=== PATIENT | female | born 1945 | race Caucasian/White ===

== ENCOUNTER 2016-10-03 08:00 | Outpatient (CLI) | payer MEDICARE, OTHER ==
[~2016-10-03 08:00] MED LIST: ALBU8.5H3 INH; ASPI-535 PO; ATEN-51 PO; ATOR20TA38 PO; BUPR1PAT9 TD; CLON2TAB3 PO; ESCI20TA PO; ESOM40CA PO; GABA-526 PO; HYDR-3011 PO; LIDO5OI35 TP; LOSA100T7 PO; OXYC30TA64 PO; TOLT4CAP13 PO
[2016-10-03 12:16] LABS: ADD SCAN DIFF NO
[2016-10-03 12:42] LABS: BASOPHIL # 0.1 10^3/ul (0.0-0.1); BASOPHILS % 1.1 % (0.0-2.0); EOSINOPHILS # 0.3 10^3/ul (0.0-0.5); EOSINOPHILS % 2.9 % (0.0-7.0); HEMATOCRIT 38.6 % (37.0-47.0); HEMOGLOBIN 11.3 g/dl (12.0-16.0); LYMPHOCYTES # 2.5 10^3/ul (0.8-2.9); LYMPHOCYTES % 24.8 % (15.0-51.0); MEAN CORPUSCULAR HEMOGLOBIN 27.2 pg (29.0-33.0); MEAN CORPUSCULAR HGB CONC 29.3 g/dl (32.0-37.0); MEAN CORPUSCULAR VOLUME 92.8 fl (82.0-101.0); MEAN PLATELET VOLUME 10.1 fl (7.4-10.4); MONOCYTE # 0.9 10^3/ul (0.3-0.9); MONOCYTES % 8.6 % (0.0-11.0); NEUTROPHIL # 6.2 10^3/ul (1.6-7.5); NEUTROPHILS % 62.4 % (39.0-77.0); PLATELET COUNT 329 10^3/UL (140-415); RED BLOOD COUNT 4.16 10^6/ul (4.20-5.40); RED CELL DISTRIBUTION WIDTH 14.5 % (11.5-14.5); WHITE BLOOD COUNT 9.9 10^3/ul (4.8-10.8)
[2016-10-03 13:12] LABS: INR 0.98
[2016-10-03 13:13] LABS: PARTIAL THROMBOPLASTIN TIME 26.9 Sec (25.0-35.0)
[2016-10-03 13:23] LABS: ADD UMIC NO; UR ASCORBIC ACID NEGATIVE (NEGATIVE); UR BILIRUBIN (Dip) NEGATIVE (NEGATIVE); UR BLOOD (Dip) NEGATIVE (NEGATIVE); UR CLARITY SLIGHTLY CLOUDY (CLEAR); UR COLOR YELLOW (YELLOW); UR GLUCOSE (Dip) NEGATIVE (NEGATIVE); UR KETONES (Dip) TRACE mg/dL (NEGATIVE); UR LEUKOCYTE ESTERASE (Dip) NEGATIVE Leu/ul (NEGATIVE); UR NITRITE (Dip) NEGATIVE (NEGATIVE); UR RBC 11 /HPF (0-5); UR SPECIFIC GRAVITY (Dip) 1.021 (1.003-1.030); UR SQUAMOUS EPITHELIAL CELL FEW /HPF (FEW); UR TOTAL PROTEIN (Dip) NEGATIVE (NEGATIVE); UR UROBILINOGEN (Dip) NEGATIVE (NEGATIVE)
[2016-10-03 13:32] LABS: ALBUMIN 4.1 g/dl (3.3-4.9); ALBUMIN/GLOBULIN RATIO 1.51; BILIRUBIN,INDIRECT 0.1 mg/dl (0-1.1); BILIRUBIN,TOTAL 0.1 mg/dl (0.2-1.3); TOTAL PROTEIN 6.8 g/dl (6.1-8.1)
[2016-10-03 13:46] LABS: CALCIUM 8.5 mg/dl (8.4-10.2); CREATININE 0.9 mg/dl (0.44-1.00)
--- NOTE | 2016-10-03 14:05 | RADRPT ---
PROCEDURE: XR Chest. CLINICAL INDICATION: Preop. Hypertension. TECHNIQUE: PA and lateral views of the chest were obtained COMPARISON: Chest 04/11/2015 FINDINGS: Again noted is a globular soft tissue density along the medial posterior left lung base consistent w ith eventration of the left hemidiaphragm. In addition there is eventration of the right hemidiaphr agm. The heart is within upper limits of normal in size. There is increased density along the left heart border consistent with epicardial fat pad. Again noted is increased density involving the pedrito gula of the left upper lobe silhouetting the left heart border consistent with scarring. An acute i nfiltrate in this region cannot be totally excluded though the felt to be less likely. Remainder george ngs are clear. No evidence of pleural effusions and pneumothorax. No evidence of pulmonary vascula r congestion. Is atherosclerosis of thoracic aorta. IMPRESSION: 1. No evidence congestive heart failure. 2. 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 3. Increased density involving the lingula left upper lobe silhouetting the left heart border likel y all due to scarring. And infiltrate this region cannot be totally excluded though felt to be less likely. RPTAT:AAJJ Physician Vandana Date Time Electronically viewed and signed by Physician Vandana on 10/03/2016 14:05 /
--- NOTE | 2016-10-04 11:11 | RADRPT ---
Vent Rate: 57 bpm RR Interval: 0 msec [place] Interval: 132 msec QRS Duration: 90 msec QT Interval: 446 msec QTC Interval: 434 msec P-R-T [place]: 31 - 16 - 52 degrees Sinus bradycardia Otherwise normal ECG Electronically Signed By: Miles Cheney [id number]
== END 2016-10-03 23:59 | disposition home or self-care (01) ==
LOC: LAB 08:00 → EDSTATUS 10-09 07:51
PROVIDERS: ATTEND Internal Medicine
DX: Z01.818 Encounter for other preprocedural examination (principal); I10 Essential (primary) hypertension; I25.10 Atherosclerotic heart disease of native coronary artery without angina pectoris
CPT/HCPCS: 71020; 80053; 81001; 81003; 85025; 85610; 85730; 93005

== ENCOUNTER 2016-10-14 17:48 | Inpatient (IN) | payer MEDICARE, OTHER ==
[~2016-10-14] VITALS: Ht 152.4 cm; Wt 74.0 kg
[2016-10-14] MEDS ORDERED: IPRATROPIUM (NEB) 0.5 MG/2.5 ML AMP INH STA (17:53)
[2016-10-14] MEDS ORDERED: ALBUTEROL 0.5% (NEB) 2.5 MG/0.5 ML AMP INH STA (17:53)
--- NOTE | 2016-10-14 18:33 | ERA ---
ER Documentation Chief Complaint Date/Time DATE: 10/14/16 TIME: 18:26 Chief Complaint SOB 82% ON ROOM AIR, NITRO SPRAY X 3 BY PARAMEDICS HPI This is a very pleasant 71-year-old female with a known history of CHF COPD and hypertension that presents to the emergency department complaining of severe difficulty in breathing that began roughly an hour prior to arrival. Patient phone 911 and when EMS arrived they indicated the patient was hypoxic satting at 82% on room air. She was using accessory muscles of respiration. They administered 3 sprays of nitroglycerin and placed the patient on high flow supplemental oxygen per nonrebreather. The patient's respiratory distress had improved but did not completely resolve. She denies any swelling of her lower extremities. She stated that roughly 3 weeks ago she was awaiting for outpatient ORIF of a left forearm fracture however she ended up going to [facility] [place] where they performed a closed reduction several days ago. She has had no fevers or shaking or chills. She has been taking tramadol for the pain of her left upper extremity. She denies any numbness or tingling of her upper extremities. She denies a headache. She denies any recent utilization of antibiotic use. She states she has been compliant with her medications. She denies a productive or nonproductive cough ROS All systems reviewed and are negative except as per history of present illness. Medications Home Meds Reported Medications Albuterol Sulfate* (Proair HFA*) 8.5 Gm Hfa.aer.ad, 2 PUFF INH Q6H Y for WHEEZING AND SOB, INH 01/14/15 Tolterodine Tartrate* (Tolterodine Tartrate* ER) 4 Mg Cap.er.24h, 4 MG PO DAILY , CAP 01/14/15 Losartan Potassium* (Losartan Potassium*) 100 Mg Tablet, 100 MG PO DAILY, TAB 01/14/15 Hydroxyzine Hcl* (Hydroxyzine Hcl*) 25 Mg Tablet, 25 MG PO DAILY for ITCHING, TAB 01/14/15 Lidocaine 5%* (Lidocaine 5%*) 5% -35 Gm Oint, 1 APPLIC TP, TUB 01/14/15 Oxycodone Hcl* (Oxycontin*) 30 Mg Tab.sr.12h, 30 MG PO Q12, TAB 01/14/15 Buprenorphine (BUTRANS) 1 Each Patch.tdwk, 1 EACH TD 01/14/15 Escitalopram Oxalate* (Lexapro*) 20 Mg Tablet, 20 MG PO DAILY, TAB 01/14/15 Gabapentin* (Gabapentin*) 600 Mg Tablet, 600 MG PO BID, TAB 01/14/15 Atorvastatin Calcium* (Atorvastatin Calcium*) 20 Mg Tablet, 20 MG PO HS, TAB 01/14/15 Atenolol* (Atenolol*) 25 Mg Tablet, 25 MG PO DAILY, TAB 01/15/14 Esomeprazole Mag Trihydrate (Nexium) 40 Mg Capsule.dr, 40 MG PO DAILY 08/24/13 Aspirin Ec (Aspir 81) 81 Mg Tablet.dr, 81 MG PO DAILY 08/24/13 Clonazepam* (Clonazepam*) 2 Mg Tablet, 2 MG PO AM, TAB 08/24/13 Allergies Allergies: Coded Allergies: Penicillins (Verified Allergy, Unknown, 04/11/15) codeine (Verified Allergy, Unknown, 04/11/15) PMhx/Soc History of Surgery: Yes Anesthesia Reaction: No Hx Neurological Disorder: Yes (hx sdh from mult falls) Hx Respiratory Disorders: Yes (copd and still smokes) Hx Cardiac Disorders: Yes (htn, high chol, mi stents) Hx Psychiatric Problems: Yes (bipolar, anxiety depression) Hx Miscellaneous Medical Probl: Yes (mult falls, fibromyaliga, catarct repairs , ) Hx Alcohol Use: No Hx Substance Use: No Hx Tobacco Use: Yes Physical Exam Vitals Vital Signs Date Time Temp Pulse Resp B/P Pulse Ox O2 Delivery O2 Flow Rate FiO2 10/14/16 19:47 Simple Mask 10/14/16 19:47 96 30 121/75 100 BIPAP 10/14/16 19:40 99 98 40 10/14/16 18:14 89 96 30 10/14/16 17:56 99.6 109 22 146/75 82 Physical Exam Constitutional:Well-developed. Well-nourished. Patient in severe respiratory distress. HEENT:Normocephalic. Atraumatic.Pupils were equal round reactive to light. Moist mucous membranes.No tonsillar exudates. Neck: No nuchal rigidity. No lymphadenopathy. No posterior cervical spine tenderness or step-offs. Respiratory: Patient using accessory muscles of respiration. Bilateral rhonchi. Unable to speak more than 2 words at a time before becoming short of breath Cardiovascular: Regular rate regular rhythm.No murmurs. No rubs were appreciated.S1, S2 normal. Distal pulses are palpable 2+ bilaterally. GI: Abdomen was soft. Nontender. Non Distended. No pulsatile abdominal masses or bruits. No rebound. No guarding. Bowel sounds were present and normal. Muscle skeletal: Full range of motion the bilateral lower extremities with no asymmetrical calf tenderness or swelling. Short arm forearm cast on the left with good perfusion of all digits of the left upper extremity. Compartments were soft of the bilateral upper extremities Skin: No petechia, no purpura. No lesions on the palms or the soles of the feet. No maculopapular rash. NEURO: Patient was alert, awake, orientated x3.No facial droop. Gait observed and normal with no ataxia.Speech had regular rate and rhythm. No focal neurological deficits. Result Diagram: 10/14/16185410/14/161854 Results 24 hrs Laboratory Tests Test 10/14/16 18:39 10/14/16 18:55 Blood Gas Specimen Source Blood arterial Arterial Blood Date Drawn 10/14/2016 6:40:23 PM Arterial Blood pH (Temp corrected) 7.425 Arterial Blood pCO2 (Temp correct) 37.9mmhg Arterial Blood pO2 (Temp corrected) 60.6mmHG Arterial Blood HCO3 24.3mmol/L Arterial Blood Base Excess 0.1mmol/L Arterial Blood Oxygen Saturation 91.8mmHG Damián Test ACCEPTAB Arterial Blood Gas Puncture Site Right Radial Arterial Blood Carboxyhemoglobin 0.9% Arterial Blood Methemoglobin 0.3% Blood Gas A-a O2 Differential 108.8mmHg Oxyhemoglobin Percent 90.7% Total Hemoglobin 12.8g/dl Blood Gas Temperature 37.0C Blood Gas Respiration Rate 14.0 Blood Gas Actual Respiration Rate 26 Blood Gas Modality MASK - BIPAP FiO2 30.0% Blood Gas Pressure Support 4 Blood Gas IPAP/EPAP Ratio 03/08 Blood Gas Notified Whom RT Blood Gas Notified Time 10/14/2016 6:44:14 PM White Blood Count 42.310^3/ul Red Blood Count 4.1310^6/ul Hemoglobin 11.5g/dl Hematocrit 36.3% Mean Corpuscular Volume 87.9fl Mean Corpuscular Hemoglobin 27.8pg Mean Corpuscular Hemoglobin Concent 31.7g/dl Red Cell Distribution Width 15.4% Platelet Count 71696^3/UL Mean Platelet Volume 9.8fl Neutrophils % 92.0% Lymphocytes % 7.0% Monocytes % 1.0% Neutrophils # 38.910^3/ul Lymphocytes # 3.010^3/ul Monocytes # 0.410^3/ul Prothrombin Time 14.4Sec Prothrombin Time Ratio 1.1 INR International Normalized Ratio 1.12 Activated Partial Thromboplast Time 34.9Sec Sodium Level 143mmol/L Potassium Level 3.5mmol/L Chloride Level 99mmol/L Carbon Dioxide Level 27mmol/L Anion Gap 21 Blood Urea Nitrogen 11mg/dl Creatinine 0.61mg/dl Glucose Level 115mg/dl Calcium Level 8.9mg/dl Total Bilirubin 0.5mg/dl Direct Bilirubin 0.00mg/dl Indirect Bilirubin 0.5mg/dl Aspartate Amino Transf (AST/SGOT) 16IU/L Alanine Aminotransferase (ALT/SGPT) 24IU/L Alkaline Phosphatase 103IU/L Creatine Kinase 37IU/L Creatine Kinase Index 3.6 Creatinine Kinase MB (Mass) 1.34ng/ml Troponin I 0.068ng/ml B-Type Natriuretic Peptide 2190PG/ML Total Protein 7.0g/dl Albumin 4.3g/dl Globulin 2.70g/dl Albumin/Globulin Ratio 1.59 Current Medications Medications (Trade) Dose Ordered Sig/Cuco Route PRN Reason Start Time Stop Time Status Last Admin Dose Admin Albuterol (Proventil 0.5% (Neb)) 10 mg ONCE STAT INH 10/14/16 17:53 10/14/16 17:59 DC 10/14/16 19:42 Ipratropium [place] (Atrovent 0.02% (Neb)) 1 mg ONCE STAT INH 10/14/16 17:53 10/14/16 17:59 DC 10/14/16 19:42 Morphine Sulfate (morphine) 4 mg ONCE STAT IV 10/14/16 18:55 10/14/16 18:56 DC 10/14/16 19:10 Ondansetron HCl (Zofran Inj) 4 mg ONCE STAT IV 10/14/16 18:55 10/14/16 18:56 DC 10/14/16 19:10 Ondansetron HCl (Zofran Inj) 4 mg ER BRIDGE PRN IV NAUSEA AND/OR VOMITING 10/14/16 20:30 10/14/16 21:27 DC Acetaminophen (Tylenol Tab) 650 mg ER BRIDGE PRN PO MILD PAIN/FEVER 10/14/16 20:30 10/14/16 21:27 DC Methylprednisolone Sodium Succinate 40 mg 40 mg DAILY ONCE IV 10/15/16 09:00 10/15/16 09:01 Levofloxacin/ Dextrose (Levaquin 500mg/ D5W 100 ml (Pmx)) 100 ml @ 100 mls/hr DAILY IVPB 10/14/16 21:00 10/14/16 21:08 DC Levalbuterol (Xopenex Neb) 0.63 mg Q6H RESP THERAPY PRN HHN SHORTNESS OF BREATH 10/14/16 20:00 Albuterol/ Ipratropium 3 ml 3 ml Q6H RESP THERAPY PRN HHN SHORTNESS OF BREATH 10/14/16 20:00 Levofloxacin/ Dextrose (Levaquin 750 Mg/ D5W 150 ml (Pmx)) 150 ml @ 100 mls/hr DAILY IVPB 10/15/16 09:00 Procedures/MDM The patient presented to the emergency department with dyspnea. My differential diagnosis included but was not limited to upper airway obstruction, CHF, pulmonary embolism, cardiac ischemia, pneumonia, pneumothorax, anemia, drug overdose, pulmonary edema, COPD or asthma. The patient was immediately placed in a multimedia services manager continuous pulse oximetry and IV access was established by nursing staff. Due to the patient's severe respiratory distress she was placed on noninvasive mechanical ventilation for a BiPAP. She received continuous nebulizer treatments of albuterol and Atrovent. The patient was also given 125 mg of Solu-Medrol. 1 view chest radiograph for and reviewed by myself and the following: Mild left basilar opacity is stable. Likely hiatus hernia. The patient had severe leukocytosis. I spoke with the admitting physician Dr. Hannon and he indicated that the patient had been placed on high-dose steroids for surgery preparation. Therefore did not feel the patient was septic and no antibiotics were started at this time. The patient has significant improvement of her respiratory distress but given the severity of her symptoms upon arrival of hypoxia the patient will be admitted for continuous nebulizer treatments serious condition to her primary care physician Dr. Hannon. 12 Lead EKG tracing ordered and reviewed by myself showed: Normal sinus rhythm of 100 bpm and no arrhythmia. NV interval normal. QRS duration normal. No ST segment elevation No ST segment depression. No changes consistent with acute ischemia. Critical Care: Time: 55 minutes Treatments/Evaluations: Close monitoring and treatment of unstable vital signs, cardiorespiratory, and neurologic status, while maintaining tight balance of fluid, respiratory, and cardiac interventions. Time does not include performing any of the above billable procedures. Departure Diagnosis: Primary Impression: COPD (chronic obstructive pulmonary disease) Qualified Code: J44.9 - Chronic obstructive pulmonary disease, unspecified COPD type Condition: Serious PAMELA WINTERS Oct 14, 2016 18:33
--- NOTE | 2016-10-14 18:43 | RADRPT ---
PROCEDURE: XR Chest. CLINICAL INDICATION: Preoperative exam TECHNIQUE: Single AP view of the chest were obtained COMPARISON: 10/03/2016 FINDINGS: The heart and mediastinum are within normal limits. The pulmonary vasculature are unremarkable. The aorta demonstrates atherosclerotic calcifications. Left lower lung opacity is again seen which erasmo ear stable from prior exam. Hiatus hernia is suspected within the lower thorax. There is a mild op acity in the medial right lung base that appears stable from prior study. There is no visible effus ion or pneumothorax. Degenerative changes are seen within the thoracic spine. There is no acute os seous abnormality. IMPRESSION: Mild left basilar opacity is stable. Likely hiatus hernia. RPTAT: AA .Rosa Gimenez MD, Date Time Electronically viewed and signed by .Rosa Gimenez MD, on 10/14/2016 18:43 .Karel/
[2016-10-14 18:44] LABS: AADO2 Arterial 108.8 mmHg (7.0-24.0); Allen Test ACCEPTAB; Arterial Base Excess 0.1 mmol/L (-3.0-3); Arterial COHb 0.9 % (0.0-3.0); Arterial Fraction of Oxyhgb 90.7 % (93.0-99.0); Arterial HCO3 24.3 mmol/L (22.0-26.0); Arterial MetHb 0.3 % (0.0-1.5); Arterial Total Hemglobin 12.8 g/dl (12.0-18.0); Blood Gas PS 4; MODE MASK - BIPAP
[2016-10-14] MEDS ORDERED: ONDANSETRON 4 MG INJ IV STA (18:55)
[2016-10-14] MEDS ORDERED: morphine 4 MG/ML VIAL IV STA (18:55)
[2016-10-14 19:12] LABS: ADD SCAN DIFF NO
[2016-10-14 19:15] LABS: ABNORMAL IP MESSAGE 1; HEMATOCRIT 36.3 % (37.0-47.0); HEMOGLOBIN 11.5 g/dl (12.0-16.0); MEAN CORPUSCULAR HEMOGLOBIN 27.8 pg (29.0-33.0); MEAN CORPUSCULAR HGB CONC 31.7 g/dl (32.0-37.0); MEAN CORPUSCULAR VOLUME 87.9 fl (82.0-101.0); MEAN PLATELET VOLUME 9.8 fl (7.4-10.4); PLATELET COUNT 407 10^3/UL (140-415); RED BLOOD COUNT 4.13 10^6/ul (4.20-5.40); RED CELL DISTRIBUTION WIDTH 15.4 % (11.5-14.5)
[2016-10-14 19:34] LABS: INR 1.12; PROTIME 14.4 Sec (12.2-14.2); PT RATIO 1.1
[2016-10-14 19:36] LABS: ALBUMIN 4.3 g/dl (3.3-4.9); ALBUMIN/GLOBULIN RATIO 1.59; BILIRUBIN,INDIRECT 0.5 mg/dl (0-1.1); BILIRUBIN,TOTAL 0.5 mg/dl (0.2-1.3); CALCIUM 8.9 mg/dl (8.4-10.2); CREATININE 0.61 mg/dl (0.44-1.00); POTASSIUM 3.5 mmol/L (3.5-5.1)
[2016-10-14 19:44] LABS: MONOCYTE # 0.4 10^3/ul (0.3-0.9); NEUTROPHIL # 38.9 10^3/ul (1.6-7.5)
[2016-10-14 19:48] LABS: CK-MB 1.34 ng/ml (0.0-2.4); TROPONIN-I 0.068 ng/ml (0.00-0.12)
[2016-10-14] MEDS ORDERED: ALBUTEROL/IPRATROPIUM (NEB) 3 ML AMP HHN PRN (20:00)
[2016-10-14 20:16] LABS: PARTIAL THROMBOPLASTIN TIME 34.9 Sec (25.0-35.0)
[2016-10-14] MEDS ORDERED: ONDANSETRON 4 MG INJ IV PRN (20:30)
[2016-10-14] MEDS ORDERED: ACETAMINOPHEN 325 MG TAB PO PRN (20:30)
[2016-10-14] MEDS ORDERED: LEVOFLOXACIN 500MG/D5W (PMX) 100 ML IVPB SCH (21:00)
[2016-10-14] MEDS: LEVOFLOXACIN 750MG/D5W (PMX) 150 ML IVPB SCH (22:29)
[2016-10-14 23:30] VITALS: Ht 152.4 cm; Wt 74.0 kg
[2016-10-14 23:52] VITALS: PULSE 101
[2016-10-15] VITALS (17 sets, daily range): BP systolic 115–138; BP diastolic 56–65; PULSE 53–175; RESP 17–18
[2016-10-15] MEDS: LEVALBUTEROL (NEB) 0.63 MG/3 ML AMP HHN PRN ×2 (00:56→08:13)
[2016-10-15] MEDS ORDERED: HYDROCODONE/APAP (5/325) TAB PO PRN (01:00)
[2016-10-15] MEDS ORDERED: LORAZEPAM 1 MG TAB PO PRN ×2 (01:00→19:00)
[2016-10-15] MEDS: morphine 4 MG/ML VIAL IV PRN ×6 (01:22→21:45)
[2016-10-15] MEDS ORDERED: ACETAMINOPHEN 325 MG TAB PO PRN (01:30)
--- NOTE | 2016-10-15 02:52 | HP ---
Date/Time of Note Date/Time of Note DATE: 10/15/16 TIME: 01:22 Assessment/Plan Lines/Catheters IV Catheter Type (from [facility]): Saline Lock Assessment/Plan Assessment/Plan -Allergies - Penicillins, codeine -COPD exacerbation - Non Invasive BIPAP - IV Solumedrol - Breathing treatments - if symptoms get worse, will get Pulmonary consult - Severe Leukocytosis sec to being on steroids - will start on Levaquin 750 mg IV daily - monitor CBC - Current Smoker - smoking cessation - hx sdh from mult falls - HTN - Dyslipidemia - HI- SP stents - Bipolar - Anxiety - Depression- - Fibromyaliga, Resume home meds. SCDs for DVT prophylaxis.Protonix for GI prophylaxis. Dw Dr Hannon/staff HPI/ROS Admit Date/Time Admit Date/Time Oct 14, 2016 at 20:25 Hx of Present Illness LATE ENTRY- 10/14/2016at 2119 This is a 71-year-old female with past medical history of CHF COPD and hypertension is admitted with c/o of severe difficulty in breathing x1 day. Patient was awaiting for outpatient ORIF by Dr Wilder, of a left forearm fracture. During assessment, patient remains on BIPAP, But patients is able to talk in full sentences and stated she feels better with breathing.She denies any swelling of her lower extremities, any productive or nonproductive cough, fevers or shaking or chills, any numbness or tingling of her upper extremities, headache. She denies any recent utilization of antibiotic use. She denies any non compliance with her medications. Patient is admitted under Dr Hannon. ROS All systems reviewed and are negative except as per history of present illness. Allergies Allergies: Coded Allergies: Penicillins (Verified Allergy, Unknown, 04/11/15) codeine (Verified Allergy, Unknown, 04/11/15) ROS Respiratory: no complaints, shortness of breath Cardiovascular: no complaints Gastrointestinal: no complaints Genitourinary: no complaints Musculoskeletal: no complaints PMH/Family/Social Past Medical History Allergies Allergies: Coded Allergies: Penicillins (Verified Allergy, Unknown, 04/11/15) codeine (Verified Allergy, Unknown, 04/11/15) PMhx/Soc History of Surgery: Yes Anesthesia Reaction: No Hx Neurological Disorder: Yes (hx sdh from mult falls) Hx Respiratory Disorders: Yes (copd and still smokes) Hx Cardiac Disorders: Yes (htn, high chol, mi stents) Hx Psychiatric Problems: Yes (bipolar, anxiety depression) Hx Miscellaneous Medical Probl: Yes (mult falls, fibromyaliga, catarct repairs , ) Hx Alcohol Use: No Hx Substance Use: No Hx Tobacco Use: Yes Social History Smoking Status: Current every day smoker Exam/Review of Systems Vital Signs Vitals Vital Signs Date Time Temp Pulse Resp B/P Pulse Ox O2 Delivery O2 Flow Rate FiO2 10/15/16 01:09 96 40 10/15/16 00:52 89 10/15/16 00:16 4.0 10/14/16 23:21 35 138/67 Nasal Cannula 10/14/16 17:56 99.6 Exam Constitutional: alert, well developed Respiratory: diminished breath sounds Cardiovascular: nl pulses, regular rate and rhythm Gastrointestinal: non-tender, soft Musculoskeletal: nl extremities to inspection Extremities: normal pulses Neurological: nl mental status, nl speech Labs Result Diagram: 10/14/16185410/14/161854 Medications Medications Current Medications Methylprednisolone Sodium Succinate 40 mg 40 mg DAILY ONCE IV ; Start 10/15/16 at 09:00; Stop 10/15/16 at 09:01 Levofloxacin/ Dextrose (Levaquin 750 Mg/ D5W 150 ml (Pmx)) 150 ml @ 100 mls/hr DAILY IVPB Last administered on 10/14/16t 22:29; Admin Dose 100 MLS/HR; Start 10/14/16 at 22:30 Morphine Sulfate (morphine) 4 mg Q4H PRN IV SEVERE PAIN LEVEL 7-10; Start 10/15 at 01:00 Acetaminophen/ Hydrocodone Bitart ([place] (5/325)) 1 tab Q4H PRN PO MODERATE PAIN LEVEL 4-6; Start 10/15/16 at 01:00 Lorazepam (Ativan) 1 mg Q6H PRN PO ANXIETY; Start 10/15/16 at 01:00 Hydroxyzine HCl (Atarax) 25 mg Q6H PRN PO ITCHING; Start 10/15/16 at 01:00 Clonazepam (Klonopin) 2 mg AM PO ; Start 10/15/16 at 09:00 Aspirin (Aspirin) 81 mg DAILY PO ; Start 10/15/16 at 09:00 Pantoprazole (Protonix Tab) 40 mg DAILY@06 PO ; Start 10/15/16 at 06:00 Atorvastatin Calcium (Lipitor) 20 mg HS PO ; Start 10/15/16 at 21:00 Atenolol (Tenormin) 25 mg DAILY PO ; Start 10/15/16 at 09:00 Escitalopram Oxalate (Lexapro) 20 mg DAILY PO ; Start 10/15/16 at 09:00 Losartan Potassium (Cozaar) 100 mg DAILY PO ; Start 10/15/16 at 09:00 Acetaminophen (Tylenol Tab) 650 mg Q6H PRN PO PAIN AND OR ELEVATED TEMP; Start 10/15/16 at 01:30; Status UNV Procedures Procedures -1 view chest Xray : - Mild left basilar opacity is stable.Likely hiatus hernia. -Severe leukocytosis - Rodger Hannon and he had been placed patient on high-dose steroids for surgery preparation. Patient was not given any antibiotics as she had shown no sign/symptoms of sepsis . -12 Lead EKG showed: Normal sinus rhythm of 100 bpm and no arrhythmia.MI interval normal. QRS duration normal.No ST segment elevation. No ST segment depression. No changes consistent with acute ischemia. CHRISTINA DIAZ Oct 15, 2016 01:37
[2016-10-15] MEDS ORDERED: ACETAMINOPHEN 500 MG TAB PO PRN (03:00)
[2016-10-15] MEDS ORDERED: ONDANSETRON 4 MG INJ IV PRN (03:00)
[2016-10-15] MEDS: SOD CHLORIDE 0.45% 1,000 ML IV SCH (03:50)
[2016-10-15] MEDS: PANTOPRAZOLE (EC) 40 MG TAB PO SCH (06:45)
[2016-10-15] MEDS: hydrOXYzine HCL 25 MG TAB PO PRN (06:45)
[2016-10-15 08:10] LABS: CHOL/HDL RATIO 2.8 RATIO
[2016-10-15] MEDS: ESCITALOPRAM 10 MG TAB PO SCH (08:51)
[2016-10-15] MEDS: ASPIRIN 81 MG TAB PO SCH (08:51)
[2016-10-15] MEDS: DOCUSATE SODIUM 100 MG CAP PO SCH ×2 (08:51→21:45)
[2016-10-15] MEDS: ATENOLOL 25 MG TAB PO SCH (08:51)
[2016-10-15] MEDS: LOSARTAN 50 MG TAB PO SCH (08:52)
[2016-10-15] MEDS: clonAZEPAM 0.5 MG TAB PO SCH (08:52)
[2016-10-15] MEDS: LEVOFLOXACIN 750MG/D5W (PMX) 150 ML IVPB SCH (08:54)
[2016-10-15] MEDS ORDERED: METHYLPREDNISOLONE 40 MG INJ IV ONE (09:00)
[2016-10-15 10:54] LABS: WHITE BLOOD COUNT 42.3 10^3/ul (4.8-10.8)
--- NOTE | 2016-10-15 14:02 | PN ---
Date/Time of Note Date/Time of Note DATE: 10/15/16 TIME: 13:53 Assessment/Plan VTE Prophylaxis VTE Prophylaxis Intervention: SCD's Lines/Catheters IV [facility] Saline Lock Urinary Cath still in place: No Assessment/Plan Chief Complaint/Hosp Course Patient's continues on BiPAP, continues to have inspiratory wheezing, denies nausea vomiting pain is well controlled. Problems: Assessment/Plan -COPD exacerbation, continue BiPAP steroids and breathing treatment. -Left forearm fracture status post closed reduction - HTN - Dyslipidemia -Coronary artery disease, status post PTCI - Bipolar - Anxiety - Depression - Fibromyalgia -Tobacco dependence, cessation is advised - History of right subdural hematoma Further recommendations based on clinical course. Plan of care discussed with Dr. Hannon. Exam/Review of Systems Vital Signs Vitals Vital Signs Date Time Temp Pulse Resp B/P Pulse Ox O2 Delivery O2 Flow Rate FiO2 10/15/16 12:29 4.0 10/15/16 12:16 64 10/15/16 11:28 98.6 18 115/58 99 10/15/16 11:20 50 10/15/16 08:13 Nasal Cannula Intake and Output 10/14/16 10/14/16 10/15/16 15:00 23:00 07:00 Intake Total 350 ml Balance 350 ml Exam Constitutional: alert, oriented Head: atraumatic, normocephalic Eyes: nl conjunctiva Neck: supple Respiratory: wheezing Cardiovascular: nl pulses Gastrointestinal: non-tender, soft Extremities: normal pulses Neurological: nl mental status Skin: nl turgor Results Result Diagram: 10/14/16 1855 10/14/16 1855 Results 24 hrs Laboratory Tests Test 10/14/16 18:39 10/14/16 18:55 10/15/16 05:51 Blood Gas Specimen Source Blood arterial Arterial Blood Date Drawn 10/14/2016 6:40:23 PM Arterial Blood pH (Temp corrected) 7.425 Arterial Blood pCO2 (Temp correct) 37.9 Arterial Blood pO2 (Temp corrected) 60.6 L Arterial Blood HCO3 24.3 Arterial Blood Base Excess 0.1 Arterial Blood Oxygen Saturation 91.8 L Damián Test ACCEPTAB Arterial Blood Gas Puncture Site Right Radial Arterial Blood Carboxyhemoglobin 0.9 Arterial Blood Methemoglobin 0.3 Blood Gas A-a O2 Differential 108.8 H Oxyhemoglobin Percent 90.7 L Total Hemoglobin 12.8 Blood Gas Temperature 37.0 Blood Gas Respiration Rate 14.0 Blood Gas Actual Respiration Rate 26 Blood Gas Modality MASK - BIPAP FiO2 30.0 Blood Gas Pressure Support 4 Blood Gas IPAP/EPAP Ratio 12/8 Blood Gas Notified Whom RT Blood Gas Notified Time 10/14/2016 6:44:14 PM White Blood Count 42.3 #H Red Blood Count 4.13 L Hemoglobin 11.5 L Hematocrit 36.3 L Mean Corpuscular Volume 87.9 Mean Corpuscular Hemoglobin 27.8 L Mean Corpuscular Hemoglobin Concent 31.7 L Red Cell Distribution Width 15.4 H Platelet Count 407 # Mean Platelet Volume 9.8 Neutrophils % 92.0 H Lymphocytes % 7.0 L Monocytes % 1.0 Neutrophils # 38.9 H Lymphocytes # 3.0 H Monocytes # 0.4 Prothrombin Time 14.4 H Prothrombin Time Ratio 1.1 INR International Normalized Ratio 1.12 Activated Partial Thromboplast Time 34.9 Sodium Level 143 Potassium Level 3.5 Chloride Level 99 Carbon Dioxide Level 27 Anion Gap 21 H Blood Urea Nitrogen 11 Creatinine 0.61 Glucose Level 115 Calcium Level 8.9 Total Bilirubin 0.5 Direct Bilirubin 0.00 Indirect Bilirubin 0.5 Aspartate Amino Transf (AST/SGOT) 16 Alanine Aminotransferase (ALT/SGPT) 24 Alkaline Phosphatase 103 Creatine Kinase 37 Creatine Kinase Index 3.6 Creatinine Kinase MB (Mass) 1.34 Troponin I 0.068 B-Type Natriuretic Peptide 2190 H Total Protein 7.0 Albumin 4.3 Globulin 2.70 Albumin/Globulin Ratio 1.59 Triglycerides Level 83 Cholesterol Level 118 LDL Cholesterol, Calculated 60 HDL Cholesterol 41 Cholesterol/HDL Ratio 2.8 Free Thyroxine 2.68 H Medications Medications Current Medications Levofloxacin/ Dextrose (Levaquin 750 Mg/ D5W 150 ml (Pmx)) 150 ml @ 100 mls/hr DAILY IVPB Last administered on 10/15/16 08:54; Admin Dose 100 MLS/HR; Start 10/14/16 at 22:30 Morphine Sulfate (morphine) 4 mg Q4H PRN IV SEVERE PAIN LEVEL 7-10 Last administered on 10/15/16 13:04; Admin Dose 4 MG; Start 10/15/16 at 01:00 Acetaminophen/ Hydrocodone Bitart ([place] (5/325)) 1 tab Q4H PRN PO MODERATE PAIN LEVEL 4-6; Start 10/15/16 at 01:00 Lorazepam (Ativan) 1 mg Q6H PRN PO ANXIETY Last administered on 10/15/16 07:35 ; Admin Dose 1 MG; Start 10/15/16 at 01:00 Hydroxyzine HCl (Atarax) 25 mg Q6H PRN PO ITCHING Last administered on 06:45; Admin Dose 25 MG; Start 10/15/16 at 01:00 Clonazepam (Klonopin) 2 mg AM PO Last administered on 10/15/16 08:52; Admin Dose 2 MG; Start 10/15/16 at 09:00 Aspirin (Aspirin) 81 mg DAILY PO Last administered on 10/15/16 08:51; Admin Dose 81 MG; Start 10/15/16 at 09:00 Pantoprazole (Protonix Tab) 40 mg DAILY@06 PO Last administered on 10/15/16 06 :45; Admin Dose 40 MG; Start 10/15/16 at 06:00 Atorvastatin Calcium (Lipitor) 20 mg HS PO ; Start 10/15/16 at 21:00 Atenolol (Tenormin) 25 mg DAILY PO Last administered on 10/15/16 08:51; Admin Dose 25 MG; Start 10/15/16 at 09:00 Escitalopram Oxalate (Lexapro) 20 mg DAILY PO Last administered on 10/15/16 08 :51; Admin Dose 20 MG; Start 10/15/16 at 09:00 Losartan Potassium (Cozaar) 100 mg DAILY PO Last administered on 10/15/16 08: 52; Admin Dose 100 MG; Start 10/15/16 at 09:00 Acetaminophen (Tylenol Tab) 650 mg Q6H PRN PO PAIN AND OR ELEVATED TEMP; Start 10/15/16 at 01:30 Ondansetron HCl (Zofran Inj) 4 mg Q6H PRN IV NAUSEA AND/OR VOMITING; Start at 03:00 Acetaminophen (Tylenol Tab) 500 mg Q6H PRN PO PAIN AND OR ELEVATED TEMP; Start 10/15/16 at 03:00 Docusate Sodium 100 mg 100 mg BID PO Last administered on 10/15/16 08:51; Admin Dose 100 MG; Start 10/15/16 at 09:00 Sodium Chloride (1/2 NS) 1,000 ml @ 40 mls/hr Q24H IV Last administered on t 03:50; Admin Dose 40 MLS/HR; Start 10/15/16 at 03:00 NUZHAT ROSENTHAL Oct 15, 2016 14:01
[2016-10-15] MEDS: METHYLPREDNISOLONE 40 MG INJ IV SCH (18:24)
[2016-10-15] MEDS: ATORVASTATIN 20 MG TAB PO SCH (21:45)
[2016-10-16] VITALS (11 sets, daily range): BP systolic 107–130; BP diastolic 54–62; PULSE 54–78; RESP 16–20
[2016-10-16] MEDS: METHYLPREDNISOLONE 40 MG INJ IV SCH ×4 (00:28→18:29)
[2016-10-16] MEDS: morphine 4 MG/ML VIAL IV PRN ×7 (02:31→23:12)
[2016-10-16] MEDS: hydrOXYzine HCL 25 MG TAB PO PRN (04:34)
[2016-10-16] MEDS: GUAIFENESIN/CODEINE 5ML CUP PO PRN ×2 (04:34→22:16)
[2016-10-16] MEDS: PANTOPRAZOLE (EC) 40 MG TAB PO SCH (06:20)
[2016-10-16] MEDS: SOD CHLORIDE 0.45% 1,000 ML IV SCH ×2 (07:00→08:53)
[2016-10-16 08:33] LABS: ADD SCAN DIFF NO
[2016-10-16 08:38] LABS: ABNORMAL IP MESSAGE 1; BASOPHILS % 0.1 % (0.0-2.0); HEMATOCRIT 34.6 % (37.0-47.0); HEMOGLOBIN 10.5 g/dl (12.0-16.0); LYMPHOCYTES # 1.2 10^3/ul (0.8-2.9); LYMPHOCYTES % 4.3 % (15.0-51.0); MEAN CORPUSCULAR HEMOGLOBIN 27.1 pg (29.0-33.0); MEAN CORPUSCULAR HGB CONC 30.3 g/dl (32.0-37.0); MEAN CORPUSCULAR VOLUME 89.4 fl (82.0-101.0); MEAN PLATELET VOLUME 10.4 fl (7.4-10.4); MONOCYTE # 1.4 10^3/ul (0.3-0.9); MONOCYTES % 4.9 % (0.0-11.0); NEUTROPHIL # 25.1 10^3/ul (1.6-7.5); NEUTROPHILS % 89.9 % (39.0-77.0); PLATELET COUNT 369 10^3/UL (140-415); RED BLOOD COUNT 3.87 10^6/ul (4.20-5.40); RED CELL DISTRIBUTION WIDTH 15.3 % (11.5-14.5)
[2016-10-16] MEDS: LEVOFLOXACIN 750MG/D5W (PMX) 150 ML IVPB SCH (08:58)
[2016-10-16] MEDS: DOCUSATE SODIUM 100 MG CAP PO SCH ×2 (08:59→20:33)
[2016-10-16] MEDS: ATENOLOL 25 MG TAB PO SCH (08:59)
[2016-10-16] MEDS: ESCITALOPRAM 10 MG TAB PO SCH (08:59)
[2016-10-16] MEDS: LOSARTAN 50 MG TAB PO SCH (08:59)
[2016-10-16] MEDS: ASPIRIN 81 MG TAB PO SCH (09:00)
[2016-10-16] MEDS: clonAZEPAM 0.5 MG TAB PO SCH (09:05)
[2016-10-16 09:07] LABS: CALCIUM 8.8 mg/dl (8.4-10.2); CREATININE 0.71 mg/dl (0.44-1.00); POTASSIUM 4.2 mmol/L (3.5-5.1)
--- NOTE | 2016-10-16 17:50 | PN ---
Date/Time of Note Date/Time of Note DATE: 10/16/16 TIME: 17:46 Assessment/Plan VTE Prophylaxis VTE Prophylaxis Intervention: SCD's Lines/Catheters IV C[facility]ter Type (from [facility]): Peripheral IV Urinary Cath still in place: No Assessment/Plan Chief Complaint/Hosp Course Patient was taking of popped BiPAP due to patient request, continues to have mild inspiratory wheezing and productive cough. Assessment/Plan -Acute Hypoxic respiratory failure secondary to COPD requiring BiPAP. -COPD exacerbation, continue BiPAP steroids and breathing treatment. Dr. Francisco is following in pulmonology consultation. -Possible pneumonia versus bronchitis, continue Levaquin. -Left forearm fracture status post closed reduction - HTN - Dyslipidemia - Coronary artery disease, status post PTCI - Bipolar - Anxiety - Depression - Fibromyalgia - Tobacco dependence, cessation is strongly advised - History of right subdural hematoma Further recommendations based on clinical course. Plan of care discussed with Dr. Hannon. Problems: Exam/Review of Systems Vital Signs Vitals Vital Signs Date Time Temp Pulse Resp B/P Pulse Ox O2 Delivery O2 Flow Rate FiO2 10/16/16 16:17 57 10/16/16 15:44 98.6 16 128/58 95 10/16/16 07:45 Nasal Cannula 3.0 10/15/16 23:09 50 Intake and Output 10/15/16 10/15/16 10/16/16 15:00 23:00 07:00 Intake Total 550 ml 300 ml Balance 550 ml 300 ml Exam Constitutional: alert, oriented Head: atraumatic, normocephalic Eyes: nl conjunctiva Neck: supple Respiratory: wheezing Cardiovascular: nl pulses Gastrointestinal: non-tender, soft Extremities: normal pulses Neurological: nl mental status Skin: nl turgor Results Result Diagram: 10/16/16 0733 10/16/16 0702 Results 24 hrs Laboratory Tests Test 10/16/16 07:02 10/16/16 07:33 Sodium Level 142 Potassium Level 4.2 Chloride Level 101 Carbon Dioxide Level 27 Anion Gap 18 H Blood Urea Nitrogen 25 #H Creatinine 0.71 Glucose Level 104 Hemoglobin A1c 5.5 Lactic Acid Level 1.2 Calcium Level 8.8 White Blood Count 28.0 #H Red Blood Count 3.87 L Hemoglobin 10.5 L Hematocrit 34.6 L Mean Corpuscular Volume 89.4 Mean Corpuscular Hemoglobin 27.1 L Mean Corpuscular Hemoglobin Concent 30.3 L Red Cell Distribution Width 15.3 H Platelet Count 369 Mean Platelet Volume 10.4 Neutrophils % 89.9 H Lymphocytes % 4.3 L Monocytes % 4.9 Eosinophils % 0.0 Basophils % 0.1 Nucleated Red Blood Cells % 0.0 Neutrophils # 25.1 H Lymphocytes # 1.2 Monocytes # 1.4 H Eosinophils # 0.0 Basophils # 0.0 Nucleated Red Blood Cells # 0.0 Medications Medications Current Medications Levofloxacin/ Dextrose (Levaquin 750 Mg/ D5W 150 ml (Pmx)) 150 ml @ 100 mls/hr DAILY IVPB Last administered on 10/16/16 08:58; Admin Dose 100 MLS/HR; Start 10/14/16 at 22:30 Acetaminophen/ Hydrocodone Bitart ([place] (5/325)) 1 tab Q4H PRN PO MODERATE PAIN LEVEL 4-6; Start 10/15/16 at 01:00 Hydroxyzine HCl (Atarax) 25 mg Q6H PRN PO ITCHING Last administered on 04:34; Admin Dose 25 MG; Start 10/15/16 at 01:00 Clonazepam (Klonopin) 2 mg AM PO Last administered on 10/16/16 09:05; Admin Dose 2 MG; Start 10/15/16 at 09:00 Aspirin (Aspirin) 81 mg DAILY PO Last administered on 10/16/16 09:00; Admin Dose 81 MG; Start 10/15/16 at 09:00 Pantoprazole (Protonix Tab) 40 mg DAILY@06 PO Last administered on 10/16/16 06 :20; Admin Dose 40 MG; Start 10/15/16 at 06:00 Atorvastatin Calcium (Lipitor) 20 mg HS PO Last administered on 10/15/16 21:45 ; Admin Dose 20 MG; Start 10/15/16 at 21:00 Atenolol (Tenormin) 25 mg DAILY PO Last administered on 10/16/16 08:59; Admin Dose 25 MG; Start 10/15/16 at 09:00 Escitalopram Oxalate (Lexapro) 20 mg DAILY PO Last administered on 10/16/16 08 :59; Admin Dose 20 MG; Start 10/15/16 at 09:00 Losartan Potassium (Cozaar) 100 mg DAILY PO Last administered on 10/16/16 08: 59; Admin Dose 100 MG; Start 10/15/16 at 09:00 Acetaminophen (Tylenol Tab) 650 mg Q6H PRN PO PAIN AND OR ELEVATED TEMP; Start 10/15/16 at 01:30 Ondansetron HCl (Zofran Inj) 4 mg Q6H PRN IV NAUSEA AND/OR VOMITING; Start at 03:00 Acetaminophen (Tylenol Tab) 500 mg Q6H PRN PO PAIN AND OR ELEVATED TEMP; Start 10/15/16 at 03:00 Docusate Sodium 100 mg 100 mg BID PO Last administered on 10/16/16 08:59; Admin Dose 100 MG; Start 10/15/16 at 09:00 Sodium Chloride (1/2 NS) 1,000 ml @ 40 mls/hr Q24H IV Last administered on 08:53; Admin Dose 40 MLS/HR; Start 10/15/16 at 03:00 Lorazepam (Ativan) 0.5 mg Q6H PRN PO ANXIETY Last administered on 10/16/16 16: 55; Admin Dose 0.5 MG; Start 10/15/16 at 19:00 Methylprednisolone Sodium Succinate (Solu-Medrol) 40 mg Q6 IV Last administered on 10/16/16 11:57; Admin Dose 40 MG; Start 10/15/16 at 18:00 Guaifenesin/ Codeine Phosphate (Robitussin Ac Liquid Cup) 5 ml Q4H PRN PO cough Last administered on 10/16/16 04:34; Admin Dose 5 ML; Start 10/15/16 at 19:00 Morphine Sulfate (morphine) 4 mg Q3H PRN IV PAIN LEVEL 7-10 Last administered on 10/16/16 15:52; Admin Dose 4 MG; Start 10/16/16 at 09:00 NUZHAT ROSENTHAL Oct 16, 2016 17:49
[2016-10-16] MEDS: ATORVASTATIN 20 MG TAB PO SCH (20:32)
[2016-10-16] MEDS ORDERED: clonAZEPAM 0.5 MG TAB PO SCH (21:00)
[2016-10-17] MEDS: METHYLPREDNISOLONE 40 MG INJ IV SCH ×2 (00:16→06:01)
[2016-10-17 00:28] VITALS: BP 122/66; RESP 20
[2016-10-17 00:52] VITALS: PULSE 56
[2016-10-17] MEDS: morphine 4 MG/ML VIAL IV PRN ×2 (02:50→06:02)
[2016-10-17] MEDS: SOD CHLORIDE 0.45% 1,000 ML IV SCH (02:56)
[2016-10-17 04:00] VITALS: BP 128/59; RESP 18
[2016-10-17 04:38] VITALS: PULSE 77
[2016-10-17] MEDS: PANTOPRAZOLE (EC) 40 MG TAB PO SCH (06:01)
[2016-10-17 07:49] VITALS: BP 144/67; RESP 18
--- NOTE | 2016-10-17 19:31 | DS ---
Date/Time of Note Date/Time of Note DATE: 10/17/16 TIME: 19:26 Discharge Summary Admission/Discharge Info Admit Date/Time Oct 14, 2016 at 20:25 Discharge Date/Time Oct 17, 2016 at 07:50 Hx of Present Illness This is a 71-year-old female with past medical history of CHF COPD and hypertension is admitted with c/o of severe difficulty in breathing x1 day. Patient was awaiting for outpatient ORIF by Dr Wilder, of a left forearm fracture. During assessment, patient remains on BIPAP, But patients is able to talk in full sentences and stated she feels better with breathing.She denies any swelling of her lower extremities, any productive or nonproductive cough, fevers or shaking or chills, any numbness or tingling of her upper extremities, headache. She denies any recent utilization of antibiotic use. She denies any non compliance with her medications. Patient is admitted under Dr Hannon. ROS All systems reviewed and are negative except as per history of present illness. Allergies Allergies: Coded Allergies: Penicillins (Verified Allergy, Unknown, 04/11/15) codeine (Verified Allergy, Unknown, 04/11/15) Hospital Course -Acute Hypoxic respiratory failure secondary to COPD requiring BiPAP. Patient left AGAINST MEDICAL ADVICE at 7:20 in the morning on 10/17 -COPD exacerbation, continue BiPAP steroids and breathing treatment. -Possible pneumonia versus bronchitis, continue Levaquin. -Left forearm fracture status post closed reduction - HTN - Dyslipidemia - Coronary artery disease, status post PTCI - Bipolar - Anxiety - Depression - Fibromyalgia - Tobacco dependence, cessation is strongly advised - History of right subdural hematoma Home Meds Reported Medications Albuterol Sulfate* (Proair HFA*) 8.5 Gm Hfa.aer.ad, 2 PUFF INH Q6H Y for WHEEZING AND SOB, INH 01/14/15 Tolterodine Tartrate* (Tolterodine Tartrate* ER) 4 Mg Cap.er.24h, 4 MG PO DAILY , CAP 01/14/15 Losartan Potassium* (Losartan Potassium*) 100 Mg Tablet, 100 MG PO DAILY, TAB 01/14/15 Hydroxyzine Hcl* (Hydroxyzine Hcl*) 25 Mg Tablet, 25 MG PO DAILY for ITCHING, TAB 01/14/15 Lidocaine 5%* (Lidocaine 5%*) 5% -35 Gm Oint, 1 APPLIC TP, TUB 01/14/15 Oxycodone Hcl* (Oxycontin*) 30 Mg Tab.sr.12h, 30 MG PO Q12, TAB 01/14/15 Buprenorphine (BUTRANS) 1 Each Patch.tdwk, 1 EACH TD 01/14/15 Escitalopram Oxalate* (Lexapro*) 20 Mg Tablet, 20 MG PO DAILY, TAB 01/14/15 Gabapentin* (Gabapentin*) 600 Mg Tablet, 600 MG PO BID, TAB 01/14/15 Atorvastatin Calcium* (Atorvastatin Calcium*) 20 Mg Tablet, 20 MG PO HS, TAB 01/14/15 Atenolol* (Atenolol*) 25 Mg Tablet, 25 MG PO DAILY, TAB 01/15/14 Esomeprazole Mag Trihydrate (Nexium) 40 Mg Capsule.dr, 40 MG PO DAILY 08/24/13 Aspirin Ec (Aspir 81) 81 Mg Tablet.dr, 81 MG PO DAILY 08/24/13 Clonazepam* (Clonazepam*) 2 Mg Tablet, 2 MG PO AM, TAB 08/24/13 Follow-up Plan Patient left AMA Primary Care Provider MD ARIADNA Dykes SVETLANA Oct 17, 2016 19:31
== END 2016-10-17 07:50 | disposition left against medical advice (07) | DRG 189 ==
LOC: E/R 17:48 → TEL 20:25
PROVIDERS: ADMIT Internal Medicine; ATTEND Internal Medicine
PROC: 4A033R1 Measurement of Arterial Saturation, Peripheral, Percutaneous Approach (ICD-10-PCS; principal; 2016-10-14)
DX: J96.01 Acute respiratory failure with hypoxia (principal); J18.9 Pneumonia, unspecified organism; J44.0 Chronic obstructive pulmonary disease with (acute) lower respiratory infection; J44.1 Chronic obstructive pulmonary disease with (acute) exacerbation; T38.0X5A Adverse effect of glucocorticoids and synthetic analogues, initial encounter; D72.829 Elevated white blood cell count, unspecified; E78.5 Hyperlipidemia, unspecified; J40 Bronchitis, not specified as acute or chronic; F17.200 Nicotine dependence, unspecified, uncomplicated; F31.9 Bipolar disorder, unspecified; F41.9 Anxiety disorder, unspecified; I10 Essential (primary) hypertension; M79.7 Fibromyalgia; I25.2 Old myocardial infarction; Z95.5 Presence of coronary angioplasty implant and graft; Z86.79 Personal history of other diseases of the circulatory system
CPT/HCPCS: 36600; 71010; 80048; 80053; 80061; 82550; 82553; 82803; 83036; 83605; 83880; 84439; 84484; 85025; 85610; 85730; 93005; 94640; 94644; 94660; 94664; 96365; 96375; J1956; J2270; J2405; J2920

== ENCOUNTER → 2016-12-06 | Outpatient (CLI) | payer MEDICARE, OTHER ==
--- NOTE | 2016-12-06 13:35 | RADRPT ---
PROCEDURE: XR Wrist. CLINICAL INDICATION: Left wrist fracture follow-up TECHNIQUE: AP and oblique views of the left wrist were performed. COMPARISON: No prior studies are available for comparison. FINDINGS: There is a fiberglass cast in place obscuring evaluation of fine cortical detail. The bones demonst rate marked demineralization. There is a healing intra-articular fracture of the left distal radius . There is patchy sclerosis along the fracture margin. There is mild dorsal and valgus angulation of the distal fracture fragment. Periostitis and early callus formation noted. On the oblique view, fragmentation is noted along the volar aspect of the radius. There is a healing fracture of the lef t distal ulna with mild periostitis and callus formation. There is mild overlap of fracture fragment s. There is a 7 mm lucency in the trapezium. IMPRESSION: 1. Healing changes of an intra-articular left radius fracture with bony bridging and patchy scleros is along the fracture margin. There is mild dorsal and valgus angulation of the distal fracture frag ment. On the oblique view, there is fragmentation noted along the volar aspect of the radius. Cons ider additional views or CT for further evaluation. 2. Healing fracture of the left distal ulna with mild periostitis and callus formation. There is mi ld fracture impaction. 3. 7 mm lucency within the trapezium, likely degenerative. 4. Marked diffuse bony demineralization. RPTAT: HH .Xi Singh MD, Date Time Electronically viewed and signed by .Xi Singh MD, on 12/06/2016 13:34 .G/
--- NOTE | 2016-12-06 13:39 | RADRPT ---
PROCEDURE: XR forearm CLINICAL INDICATION: Left wrist fracture follow-up TECHNIQUE: AP and lateral views of the left forearm were performed. COMPARISON: Left wrist x-rays performed concurrently FINDINGS: There is a fiberglass cast in place obscuring evaluation of fine cortical detail. The bones demonst rate marked demineralization. There is a healing intra-articular fracture of the left distal radius . There is patchy sclerosis along the fracture margin. There is mild dorsal and valgus angulation of the distal fracture fragment. Periostitis and early callus formation noted. On the oblique view, fragmentation is noted along the volar aspect of the radius. There is a healing fracture of the lef t distal ulna with mild periostitis and callus formation. There is mild overlap of fracture fragment s. There is a 7 mm lucency in the trapezium. Metallic shrapnel seen within the soft tissues surroun ding the elbow. IMPRESSION: 1. Healing changes of an intra-articular left radius fracture with bony bridging and patchy scleros is along the fracture margin. There is mild dorsal and valgus angulation of the distal fracture frag ment. On the oblique view, there is fragmentation noted along the volar aspect of the radius. Cons ider additional views or CT for further evaluation. 2. Healing fracture of the left distal ulna with mild periostitis and callus formation. There is mi ld fracture impaction. 3. 7 mm lucency within the trapezium, likely degenerative. 4. Marked diffuse bony demineralization. RPTAT: HH .Xi Singh MD, MD Date Time Electronically viewed and signed by .Xi Singh MD, on 12/06/2016 13:39 .G/
== END | disposition home or self-care (01) ==
LOC: RAD 11:46
PROVIDERS: ATTEND Specialist
DX: S52.502D Unspecified fracture of the lower end of left radius, subsequent encounter for closed fracture with routine healing (principal); X58.XXXD Exposure to other specified factors, subsequent encounter
CPT/HCPCS: 73090; 73100

== ENCOUNTER 2017-05-04 10:40 | Emergency (ER) | END 2017-05-04 14:13 | disposition home or self-care (01) ==

== ENCOUNTER 2017-05-11 13:06 | Inpatient (IN) | END 2017-05-13 14:42 | disposition left against medical advice (07) | DRG 92 ==

== ENCOUNTER → 2017-11-10 12:50 | Inpatient (IN) | END | disposition left against medical advice (07) | DRG 563 ==

== ENCOUNTER → 2018-04-09 | Outpatient (CLI) | payer MEDICARE, OTHER ==
[~2018-04-09] MED LIST changes: -ALBU8.5H3 INH; +AMLO1CAP8 PO; +ARIP15TA3 PO; -ASPI-535 PO; -ATEN-51 PO; -ATOR20TA38 PO; +ATOR40TA68 PO; +BARIUM SULF 2% 450 ML BTL (BERRY SMOOTHIE) PO ONE; -BUPR1PAT9 TD; +CELE200C PO; +CLON2TAB12 PO; -CLON2TAB3 PO; +DOCU-103 PO; +FURO20TA3 PO; -GABA-526 PO; -HYDR-3011 PO; +HYDR-3671 PO; +HYDR50TA15 PO; +IOHEXOL 300MG/ML 150 ML BTL ONE; +ISOS30TA67 PO; -LIDO5OI35 TP; -LOSA100T7 PO; -OXYC30TA64 PO; +SOD CHLORIDE 0.9% 100 ML ONE; +TIZA4TAB PO; -TOLT4CAP13 PO
== END | disposition home or self-care (01) ==
LOC: C/S 11:15
PROVIDERS: ATTEND Internal Medicine
DX: R10.9 Unspecified abdominal pain (principal); R63.0 Anorexia
CPT/HCPCS: 71260; 74177; Q9967

== ENCOUNTER 2018-09-28 08:05 | Inpatient (IN) | payer MEDICARE, OTHER ==
[~2018-09-28] VITALS: Ht 157.5 cm; Wt 50.0 kg
[~2018-09-28 08:05] MED LIST changes: -BARIUM SULF 2% 450 ML BTL (BERRY SMOOTHIE) PO ONE; -IOHEXOL 300MG/ML 150 ML BTL ONE; -SOD CHLORIDE 0.9% 100 ML ONE
[2018-09-28] MEDS ORDERED: SOD CHLORIDE 0.9% 1,000 ML IV STA ×2 (08:11→09:38)
[2018-09-28] MEDS ORDERED: CLINDAMYCIN 900 MG/D5W (PMX) 50 ML IVPB STA (09:38)
[2018-09-28] MEDS ORDERED: VANCOMYCIN 1 GM (PMX) 250 ML IVPB ONE (10:00)
[2018-09-28] MEDS: AZTREONAM 1 GM/NS (PMX) 50 ML IVPB ONE ×2 (10:05→10:48)
[2018-09-28] MEDS ORDERED: ASPIRIN 81 MG TAB PO ONE (10:30)
[2018-09-28] MEDS ORDERED: ACETAMINOPHEN 325 MG TAB PO PRN (11:00)
[2018-09-28] MEDS ORDERED: ONDANSETRON 4 MG INJ IV PRN ×2 (11:00→11:30)
[2018-09-28] MEDS ORDERED: NACL 0.9% 3 ML SYG IV SCH (11:30)
[2018-09-28] MEDS ORDERED: LACTATED RINGER'S 1,000 ML IV ONE (11:30)
[2018-09-28] MEDS ORDERED: ASPI81TA52 PO (11:32)
[2018-09-28] MEDS ORDERED: ATEN-51 PO (11:35)
[2018-09-28] MEDS ORDERED: OMEP20CA16 PO (11:35)
[2018-09-28] MEDS ORDERED: CITA20TA11 PO (11:35)
--- NOTE | 2018-09-28 11:35 | ERD ---
ER Documentation Chief Complaint Chief Complaint found lying next to bed this morning by caregiver HPI 73-year-old female presents via EMS. The patient lives at home and has almost 24-hour home health care however the patient was found laying next to her bed for approximately 3 to 4 hours. The patient had pulled blankets and pillow onto the ground. Initially the patient was minimally responsive and cannot provide adequate history. The patient had old bruising to the left periorbital region. Old bruising to the left hand and wrist area. Remainder of HPI is extremely limited. ROS All systems reviewed and are negative except as per history of present illness. Medications Home Meds Reported Medications Escitalopram Oxalate* (Lexapro*) 20 Mg Tablet, 20 MG PO DAILY, #30 TAB 05/09/17 Furosemide* (Furosemide*) 20 Mg Tablet, 20 MG PO QAM, #60 TAB 05/09/17 Hydralazine Hcl* (Hydralazine Hcl*) 25 Mg Tab, 25 MG PO TID, #90 TAB FOR SBP>170 05/09/17 Aripiprazole* (Abilify*) 15 Mg Tablet, 15 MG PO QHS, #30 TAB 05/09/17 Amlodipine Besylate/Benazepril (Amlodipine-Benazepril 5-10 mg) 1 Each Capsule, 1 EACH PO DAILY, CAP 05/09/17 Tizanidine Hcl* (Tizanidine Hcl*) 4 Mg Tablet, 4 MG PO BID PRN for SPASTICITY, TAB 05/09/17 Docusate Sodium (Docusil) 100 Mg Capsule, 100 MG PO BID, #60 CAP 05/09/17 Hydroxyzine Hcl* (Hydroxyzine Hcl*) 50 Mg Tablet, 50 MG PO QHS, #30 TAB TAKE 1 OR 2 CAP QHS 1 hour before bedtime 05/09/17 Esomeprazole Mag Trihydrate (Nexium) 40 Mg Capsule.dr, 40 MG PO DAILY, #30 CAP 05/09/17 Clonazepam* (Clonazepam*) 2 Mg Tablet, 2 MG PO BID, TAB TAKE 1 TAB-QAM AND 1&1/2 TAB-QHS 05/09/17 Atorvastatin* (Atorvastatin*) 40 Mg Tablet, 40 MG PO QHS, #30 TAB 05/09/17 Celecoxib* (Celebrex*) 200 Mg Capsule, 200 MG PO BID, CAP 05/09/17 Isosorbide Mononitrate* (Isosorbide Mononitrate*) 30 Mg Tab.er.24h, 30 MG PO DAILY, TAB 05/09/17 Allergies Allergies: Coded Allergies: Penicillins (Verified Allergy, Unknown, 05/09/17) codeine (Verified Allergy, Unknown, 05/09/17) PMhx/Soc History of Surgery: Yes (ORIF LT WRIST;CARDIAC STENTS; CATARACT) Anesthesia Reaction: No Hx Neurological Disorder: Yes (SUBDURAL HEMATOMA) Hx Respiratory Disorders: Yes (COPD) Hx Cardiac Disorders: Yes (CARDIAC STENTS;HTN) Hx Psychiatric Problems: Yes (ANXIETY; DEPRESSION, BNIPOLAR) Hx Miscellaneous Medical Probl: Yes Hx Alcohol Use: Yes Smoking Status: Unknown if ever smoked FmHx Family History: No diabetes Physical Exam Vitals Vital Signs Date Temp Pulse Resp B/P (MAP) Pulse Ox O2 O2 Flow FiO2 Time Delivery Rate 09/28/18 80 17 104/56 95 Nasal 2.0 10:01 (72) Cannula 09/28/18 Nasal 3 08:51 Cannula 09/28/18 98.7 90 22 140/63 95 08:19 (88) Physical Exam Airway is intact Bilateral breath sounds Strong distal pulses No obvious deficits General: Clinically dehydrated Head: Normocephalic, atraumatic Eyes: Pupils equally reactive, EOM intact ENT: Dry mucous membranes, normal jaw opening and closing. Ecchymoses to the zygomatic arch and periorbital region of the left face Neck: Supple, no lymphadenopathy, No midline tenderness, deformities, step-offs to the cervical spine, full active and passive range of motion without midline pain. Respiratory: Lungs clear bilaterally, no distress, no chest wall tenderness, no crepitus Cardiovascular: RRR, no murmurs, rubs, or gallops Abdominal: Soft, non-tender, non-distended, no peritoneal signs, pelvis is stable : Deferred MSK: No edema, no unilateral swelling, 5/5 strength, no midline tenderness deformities or step-offs to the thoracolumbar spine. Mild soft tissue swelling and tenderness to the left wrist. No bony abnormalities, no snuffbox tenderness. Good capillary refill. Neurologic: Limited exam but moving all extremities. Skin: No ecchymoses or bruising to the chest or abdomen Psych: Normal mood Result Diagram: 09/28/1819 09/28/1819 Results 24 hrs Laboratory Tests Test 09/28/18 09:19 09/28/18 09:39 09/28/18 09:58 White Blood Count 15.9 10^3/ul Red Blood Count 5.15 10^6/ul Hemoglobin 12.5 g/dl Hematocrit 43.0 % Mean Corpuscular Volume 83.5 fl Mean Corpuscular Hemoglobin 24.3 pg Mean Corpuscular 29.1 g/dl Hemoglobin Concent Red Cell Distribution Width 19.0 % Platelet Count 466 10^3/UL Mean Platelet Volume 10.1 fl Immature Granulocytes % 0.500 % Neutrophils % % Segmented Neutrophils % (Manual) 82 % Band Neutrophils % (Manual) 3 % Lymphocytes % % Lymphocytes % (Manual) 6 % Monocytes % % Monocytes % (Manual) 7 % Eosinophils % % Basophils % % Basophils % (Manual) 2 % Nucleated Red Blood Cells % 0.0 /100WBC Immature Granulocytes # 0.080 10^3/ul Neutrophils # 10^3/ul Neutrophils # (Manual) 13.1 10^3/ul Band Neutrophils # 0.4 10^3/ul Lymphocytes (Manual) 0.9 10^3/ul Lymphocytes # 10^3/ul Monocytes # 10^3/ul Monocytes # (Manual) 1.1 10^3/ul Eosinophils # 10^3/ul Basophils # 10^3/ul Basophils # (Manual) 0.3 10^3/ul Nucleated Red Blood Cells # 10^3/ul Platelet Estimate INCREASED Polychromasia 3+ Hypochromasia 1+ Poikilocytosis 2+ Anisocytosis 2+ Microcytosis 1+ Ovalocytes 1+ Sodium Level 146 mmol/L Potassium Level 4.4 mmol/L Chloride Level 102 mmol/L Carbon Dioxide Level 35 mmol/L Anion Gap 9 Blood Urea Nitrogen 20 mg/dl Creatinine 0.60 mg/dl Est Glomerular Filtrat Rate mL/min mL/min Glucose Level 114 mg/dl Calcium Level 8.9 mg/dl Total Bilirubin 0.5 mg/dl Direct Bilirubin 0.00 mg/dl Indirect Bilirubin 0.5 mg/dl Aspartate Amino Transf (AST/SGOT) 32 IU/L Alanine < 6 IU/L Aminotransferase (ALT/SGPT) Alkaline Phosphatase 96 IU/L Creatine Kinase 585 IU/L Troponin I 0.150 ng/ml Total Protein 7.7 g/dl Albumin 4.0 g/dl Globulin 3.70 g/dl Albumin/Globulin Ratio 1.08 Free Thyroxine Index 2.70 ug/ml Thyroxine (T4) 8.1 ug/dl Triiodothyronine (T3) Uptake 33.3 % Bedside Glucose 110 mg/dL Lactic Acid Level 2.0 mmol/L Current Medications Medications Dose Sig/Cuco Start Time Status Last (Trade) Ordered Route PRN Stop Time Admin Dose Reason Admin Sodium 1,000 ml @ Q1H STAT 09/28/18 DC 09/28/18 Chloride 1,000 mls/hr IV 08:11 10:06 09/28/18 09:10 Vancomycin 250 ml @ ONCE ONCE 09/28/18 HCl 125 mls/hr IVPB 10:00 09/28/18 11:59 Clindamycin 50 ml @ 50 ONCE STAT 09/28/18 DC 09/28/18 HCl/ mls/hr IVPB 09:38 10:53 Dextrose 09/28/18 10:37 Aztreonam 50 ml @ ONCE ONCE 09/28/18 DC 09/28/18 100 mls/hr IVPB 10:00 10:48 09/28/18 10:29 Sodium 1,000 ml @ Q1H STAT 09/28/18 DC Chloride 1,000 mls/hr IV 09:38 09/28/18 10:37 Aspirin 162 mg ONCE ONCE 09/28/18 DC (Aspirin) PO 10:30 09/28/18 10:31 Ondansetron 4 mg ER BRIDGE 09/28/18 HCl (Zofran PRN IV 11:00 09/29/18 Inj) NAUSEA/VOMITI 10:59 NG 650 mg ER BRIDGE 09/28/18 Acetaminophen PRN PO 11:00 09/29/18 (Tylenol .MILD PAIN 10:59 Tab) 1-3 OR TEMP Lactated 1,000 ml @ Q1H ONCE 09/28/18 UNV Ringer's 1,000 mls/hr IV 11:30 09/28/18 12:29 Sodium 1,000 ml @ Q8H IV 09/28/18 UNV Chloride 125 mls/hr 11:05 IV Flush 3 ml PER 09/28/18 UNV (NS 3 ml) PROTOCOL IV 11:30 Ondansetron 4 mg Q6H PRN 09/28/18 UNV HCl (Zofran IV 11:30 Inj) NAUSEA/VOMITI NG Aspirin 81 mg DAILY PO 09/29/18 UNV (Aspirin) 09:00 650 mg Q6H PRN 09/28/18 UNV Acetaminophen PO .PAIN 1-3 11:30 (Tylenol OR TEMP Tab) Morphine 2 mg Q4H PRN 09/28/18 UNV Sulfate IV .PAIN 11:30 (morphine) 7-10 Famotidine 20 mg Q12 IV 09/28/18 UNV (Pepcid Iv) 21:00 Enoxaparin 30 mg DAILY SC 09/29/18 UNV Sodium 09:00 (Lovenox) Aztreonam 2 100 ml @ Q8 IVPB 09/28/18 UNV gm/ Dextrose 100 mls/hr 14:00 Procedures/MDM EKG, MONITORS, & DIAGNOSTIC IMAGING: EKG: I reviewed and interpreted a 12-lead EKG. Rhythm: Normal sinus rhythm ST Changes: No contiguous ST segment elevations T waves: No contiguous T wave inversions Impression: No evidence of acute cardiac ischemia CXR IMPRESSION: Findings concerning for left lower lobe aspiration or pneumonia. Mild central venous congestion. Probable hiatal hernia. Calcified atherosclerosis of the thoracic aorta. RPTAT:AAJJ CT brain IMPRESSION: No intracranial hemorrhage or skull fracture. Atrophy. White matter disease compatible with chronic small vessel ischemia. No mass or evidence of acute transcortical infarct. CT facial IMPRESSION: Soft tissue swelling lateral to the left orbit with nondisplaced fracture left zygomatic arch. XR left wrist IMPRESSION: Soft tissue swelling without acute appearing fracture or dislocation. Old healed fractures of the distal radius and ulna with positive ulnar variance. Moderate degenerative joint disease at the thumb base. RPTAT:AAJJ CT c spine IMPRESSION: No evidence of acute fracture of the cervical spine. Moderate spondylotic changes, as above. PROCEDURES: Peripheral IV Insertion: Indication: Difficult IV access Location: Right antecubital fossa Attempts: 1 Angiocath-type: 18-gauge The patient was consented prior to procedure and states understanding of risks, benefits, alternatives. Verbal consent was provided Sterile procedure was used to insert a peripheral IV. Indication, location and Angiocath-type are noted above. Ultrasound guidance was used to assist in the insertion of the Angiocath. Return of dark nonpulsatile blood was obtained, normal saline flushed through the Angiocath which was then secured to the skin. The patient tolerated the procedure well without complications. Emergency Bedside Ultrasound: The patient was verbally consented prior to procedure and understands the risks, benefits, and alternatives. The patient is agreeable to procedure and has given verbal consent. Indication: Peripheral IV insertion Probe Type: Linear Findings: Dynamic ultrasound utilized with compression technique with both linear and horizontal views. The patient tolerated the procedure well and there were no complications. LAB INTERPRETATION: I reviewed the laboratory testing and it shows patient with a white blood cell count of 15.9, slightly elevated troponin of 0.150, normal lactic acid MEDICAL DECISION MAKING: The patient presents to the emergency room after being found laying next to her bed. Differential is broad including traumatic injury. Patient does have evidence of subacute injuries that are somewhat concerning that the patient is not receiving adequate care at home. director of medical staff services and likely placement are necessary. Patient is hemodynamically stable though appears to be dehydrated. Diagnostic imaging and laboratory testing to rule out alternative process, dehydration, infection and infarction will be initiated. ER COURSE: * the patient does have leukocytosis with a chest x-ray showing concern for possible Pneumonia versus aspiration event. * Blood cultures and lactic acid were taken. The patient was given broad- spectrum antibiotics. * The patient does not initially qualify for Sirs criteria in the emergency room setting. * Fluid resuscitation was initiated * Troponin is elevated likely secondary to demand ischemia rather than acute coronary syndrome. EKG is nonischemic. No chest pain reported. Aspirin provided. * Patient does have a zygomatic arch fracture that can be managed on a nonemergent outpatient basis. CONSULTATION: None DISPOSITION PLAN: Accepting care team and consultations: I discussed the current laboratory data, diagnostic imaging and emergency care provided. Admitting team: Dr. Bel Olivares notified via telephone, on-call for Dr. Hannon Admitting team indication: Insurance directed Sepsis Documentation: Patient's infectious symptoms have not stabilized and the patient is at risk of rapid decompensation. The patient will be admitted for careful hydration, antibiotic therapy, and infectious source control. SEVERE SEPSIS CRITERIA: Infectious source: Community-acquired pneumonia, aspiration pneumonia End organ damage indicated by: No end organ dysfunction noted SEPSIS MANAGEMENT Time of recognition of sepsis: Approximately 9:58 AM. Time of recognition of severe sepsis: No severe sepsis at this time. Time of recognition of septic shock: No septic shock at this time. 3 HOUR BUNDLE Blood cultures x 2 before broad-spectrum antibiotics: Yes 30 ml/kg NS bolus completed Initial lactate 2.0 Repeat lactate pending repeat SEPTIC SHOCK ASSESSMENT: No lactic acid > 4.0 No persistent hypotension (SBP < 90 or 40 mmHg drop, MAP < 65) despite 30 mL/kg IV fluid bolus VOLUME REASSESSMENT FOR SEPTIC SHOCK: The patient does not meet criteria for septic shock in the emergency department at this time PERSISTENT HYPOTENSION TREATMENT: Comfort care no Central line not Required Vasopressor started not required I considered further perfusion assessment with CVP measurement, SCVO2, bedside ultrasound volume assessment, passive leg raise, trial of further fluid bolus. And proceeded with 30 ml/kg fluid bolus of NSS, broad spectrum antibiotics, and admission. CRITICAL CARE Critical care time 35 minutes Emergent fluid management while maintaining close respiratory support. Provision of immediate and broad-spectrum antibiotic therapy. Simultaneous assessment for possible sources in order to direct targeted therapy. Consideration for invasive and chemical support to prevent cardiopulmonary collapse. Critical care time is independent of procedures performed. Departure Diagnosis: Primary Impression: Community acquired pneumonia Laterality: unspecified laterality Qualified Codes: J18.9 - Pneumonia, unspecified organism Additional Impressions: Aspiration pneumonitis Closed fracture of left zygomatic arch Encounter type: initial encounter Qualified Codes: S02.40FA - Zygomatic fracture, left side, initial encounter for closed fracture Dehydration, moderate Sepsis Sepsis type: sepsis due to unspecified organism Qualified Codes: A41.9 - Sepsis, unspecified organism NSTEMI (non-ST elevated myocardial infarction) Condition: TAZ Li MD Sep 28, 2018 11:35
[2018-09-28] MEDS ORDERED: AMLO1CAP8 PO (11:36)
[2018-09-28] MEDS ORDERED: ATOR40TA68 PO (11:36)
[2018-09-28] MEDS ORDERED: CLON2TAB12 PO (11:37)
[2018-09-28] MEDS ORDERED: ESCI20TA PO (11:38)
[2018-09-28] MEDS ORDERED: BUPR1FIL5 SL (11:38)
[2018-09-28] MEDS ORDERED: HYDR50TA15 PO (11:39)
[2018-09-28 14:26] VITALS: BP 125/64; PULSE 61; RESP 20
[2018-09-28 15:00] VITALS: Ht 157.5 cm; Wt 50.0 kg
[2018-09-28 15:32] VITALS: BP 132/59; PULSE 67; RESP 19
[2018-09-28] MEDS: SOD CHLORIDE 0.9% 1,000 ML IV SCH ×2 (15:59→19:05)
[2018-09-28] MEDS: AZTREONAM 2 GM in DEXTROSE 5% 100 ML IVPB SCH ×2 (16:00→21:59)
[2018-09-28] MEDS: PETROLATUM 5 GM OINT TOP SCH ×2 (16:28→21:58)
[2018-09-28 20:30] VITALS: BP 137/63; PULSE 63; RESP 18
[2018-09-28] MEDS: FAMOTIDINE 20 MG INJ IV SCH (21:12)
[2018-09-29] VITALS (7 sets, daily range): BP systolic 98–154; BP diastolic 54–72; PULSE 64–99; RESP 17–20
[2018-09-29] MEDS: SOD CHLORIDE 0.9% 1,000 ML IV SCH ×4 (03:05→14:47)
[2018-09-29] MEDS: AZTREONAM 2 GM in SOD CHLORIDE 0.9% 100 ML IVPB SCH ×3 (07:41→22:00)
[2018-09-29] MEDS: FAMOTIDINE 20 MG INJ IV SCH (08:19)
[2018-09-29] MEDS: PETROLATUM 5 GM OINT TOP SCH ×2 (08:19→21:00)
[2018-09-29] MEDS: ENOXAPARIN 30 MG/0.3 ML SYG SC SCH (08:25)
[2018-09-29] MEDS ORDERED: ASPIRIN 81 MG TAB PO SCH (09:00)
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
[2018-09-29] MEDS: clonAZEPAM 0.5 MG TAB PO SCH (20:11)
[2018-09-29] MEDS: ATORVASTATIN 40 MG TAB PO SCH (21:00)
[2018-09-29] MEDS: FAMOTIDINE 20 MG TAB PO SCH (21:00)
[2018-09-29] MEDS: BALSAM PERU/CASTOR OIL 60 GM TUBE TOP SCH (21:00)
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
[2018-09-29] MEDS: CEFUROXIME 250 MG TAB PO SCH (23:15)
[2018-09-30] MEDS: SOD CHLORIDE 0.9% 1,000 ML IV SCH ×3 (03:05→19:05)
[2018-09-30 03:41] VITALS: BP 128/59; PULSE 66; RESP 20
[2018-09-30] MEDS: AZTREONAM 2 GM in SOD CHLORIDE 0.9% 100 ML IVPB SCH ×2 (06:00→14:00)
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
[2018-09-30 07:30] VITALS: BP 125/58; PULSE 80; RESP 17
[2018-09-30] MEDS: PETROLATUM 5 GM OINT TOP SCH ×2 (08:55→20:26)
[2018-09-30] MEDS: BALSAM PERU/CASTOR OIL 60 GM TUBE TOP SCH ×2 (08:55→20:27)
[2018-09-30] MEDS: ESCITALOPRAM 10 MG TAB PO SCH (08:58)
[2018-09-30] MEDS: ATENOLOL 25 MG TAB PO SCH (08:59)
[2018-09-30] MEDS: clonAZEPAM 0.5 MG TAB PO SCH ×2 (08:59→20:24)
[2018-09-30] MEDS: BENAZEPRIL 10 MG TAB PO SCH (08:59)
[2018-09-30] MEDS ORDERED: AZITHROMYCIN 250 MG TAB PO SCH (09:00)
[2018-09-30] MEDS: PANTOPRAZOLE (EC) 40 MG TAB PO SCH (09:00)
[2018-09-30] MEDS ORDERED: AMLODIPINE 5 MG TAB PO SCH (09:00)
[2018-09-30] MEDS: ENOXAPARIN 30 MG/0.3 ML SYG SC SCH (09:00)
[2018-09-30] MEDS: ASPIRIN (EC) 81 MG TAB PO SCH (09:00)
[2018-09-30] MEDS: FAMOTIDINE 20 MG TAB PO SCH ×2 (09:00→20:24)
[2018-09-30] MEDS: CEFUROXIME 250 MG TAB PO SCH (09:02)
[2018-09-30 11:15] VITALS: BP 135/65; PULSE 73; RESP 17
--- NOTE | 2018-09-30 12:38 | RADRPT ---
Echocardiogram Report Patient Name: Maria Teresa WELDONtient ID: [id number] : 1945 (73y 4m)Study Date: 09/30/2018 7:19:08 AM Gender: FAccession #: [id number] Tech: Star Larson [facility] Location: [facility] Ref.Physician: LARISSA BRIZUELA Height(Cm): BSA: Weight(Kg): Quality: AdequateOrder Physician: LARISSA BRIZUELA Account #: Procedures: Echocardiographic Report: Transthoracic echocardiogram with complete 2D, M-Mode, and doppler examination. Indications: NSTEMI. Measurements: 2D/M Mode Doppler Measurement Value Normal Range Measurement Value Normal Range LVIDd 2D 3.9 [ 3.8 - 5.2 ] cm AV Mean Jay 112.9 [ 70.0 - 90.0 ] cm/sec LVIDs 2D 2.4 [ 2.2 - 3.5 ] cm AV Mean PG 6.7 [ 2.0 - 4.0 ] mmHg LVPWd 2D 1.1 [ 0.6 - 0.9 ] cm AV Peak Jay 211.3 [ 100.0 - 170.0 ] cm/sec IVSd 2D 1.0 [ 0.6 - 0.9 ] cm AV Peak PG 17.9 [ 2.0 - 9.0 ] mmHg AoR Diam 2D 3.0 [ 2.3 - 3.1 ] cm AV VTI 39.1 cm EDV 2D 65.1 [ 46.0 - 106.0 ] ml LVOT Peak Jay 1.6 [ 70.0 - 110.0 ] cm/sec ESV 2D 20.4 [ 14.0 - 42.0 ] ml LVOT Peak PG 10.0 [ 2.0 - 6.0 ] mmHg EF 2D 68.7 [ 54.0 - 74.0 ] percent MV E Peak Jay 0.8 [ 60.0 - 130.0 ] cm/sec LA Dimen 2D 3.8 [ 2.7 - 3.8 ] cm MV A Peak Jay 0.9 [ 100.0 - 120.0 ] cm/sec MV E/A 0.9 [ 0.8 - 1.5 ] ratio MV Decel Time 187 [ 104 - 258 ] msec Lat E` Ajy 0.1 [ 10.0 - 15.0 ] cm/sec Lateral E/E` 9.9 [ 1.0 - 2.0 ] ratio MV E/A 0.9 [ 0.8 - 1.5 ] ratio TR Peak Jay 2.6 [ 100.0 - 280.0 ] cm/sec TR Peak PG 27.0 mmHg RVSP 30.0 [ 10.0 - 36.0 ] mmHg RA Pressure 3.0 mmHg Findings: Left Ventricle: Normal left ventricular systolic function. Normal left ventricular cavity size. Mild hypertrophy of the basal septum. Mild concentric left ventricular hypertrophy. Ejection fraction is visually estimated at 65 %. Tissue Doppler/Mitral Doppler indices are consistent with impaired relaxation (Stage I diastolic dysfunction). Right Ventricle: Normal right ventricular size. Normal right ventricular systolic function. Left Atrium: There is moderate enlargement of left atrium. Right Atrium: There is mild enlargement of right atrium. Mitral Valve: Mild mitral annular calcification. Trace mitral regurgitation. Aortic Valve: Aortic sclerosis without significant stenosis. No aortic regurgitation. Tricuspid Valve: Normal appearance and function of the tricuspid valve with trace physiologic regurgitation. The estimated Peak RVSP is 30 mmHg. There is trace tricuspid regurgitation. Pulmonic Valve: Normal pulmonic valve appearance. Pericardium: Normal pericardium with no significant pericardial effusion. Aorta: Normal aortic root. IVC: Normal size and normal respiratory collapse consistent with normal right atrial pressure. Conclusions: Normal left ventricular systolic function. Normal left ventricular cavity size. Mild hypertrophy of the basal septum. Mild concentric left ventricular hypertrophy. Ejection fraction is visually estimated at 65 %. Tissue Doppler/Mitral Doppler indices are consistent with impaired relaxation (Stage I diastolic dysfunction). Aortic sclerosis without significant stenosis. No aortic regurgitation. The estimated Peak RVSP is 30 mmHg. Normal size and normal respiratory collapse consistent with normal right atrial pressure. Electronically Signed By: Larissa Brizuela 2018-09-30 12:36:45 PDT
[2018-09-30] MEDS ORDERED: MAGNESIUM SULFATE 2 GM/50 ML 50 ML IVPB ONE (13:00)
--- NOTE | 2018-09-30 14:52 | CONS ---
Assessment/Plan Assessment/Plan Hospital Course (Demo Recall) No events overnight. Patient is awake looks comfortable. No fevers overnight. WBC 10.2 platelets 416 neutrophils 76.2 BUN 8 creatinine 0.49 Microbiology blood cultures since admission negative urine culture grew E. coli ESBL with repeat urine culture negative Antimicrobials: Ceftin Physical examination: Well-developed elderly woman who is awake in no distress. Head atraumatic normocephalic neck is supple chest rise symmetrical breath sounds diminished bases. Heart: S1-S2. Abdomen soft bowel sounds present. Extremities without cyanosis. Assessment: 1. Community-acquired pneumonia 2. Status post UTI 3. Non-ST elevation [place] 4. Hypertension 5. History of multiple falls Plan: Patient has no IV line and refusing to have one, repeat urine culture negative, will change antibiotics to oral levofloxacin Consultation Date/Type/Reason Admit Date/Time Sep 28, 2018 at 10:43 Initial Consult Date 09/30/18 Type of Consult id Requesting Provider: NUZHAT ROSENTHAL Date/Time of Note DATE: 09/30/18 TIME: 14:51 Exam/Review of Systems Exam Vitals Vital Signs Date Temp Pulse Resp B/P (MAP) Pulse Ox O2 O2 Flow FiO2 Time Delivery Rate 09/30/18 98.3 73 17 135/65 91 11:15 (88) 09/30/18 Nasal 2.0 08:44 Cannula 09/29/18 27 12:46 Intake and Output 09/29/18 09/29/18 09/30/18 1515:00 23:00 07:00 IntakeIntake Total 1800 ml 645 ml 100 ml BalanceBalance 1800 ml 645 ml 100 ml Results Result Diagram: 09/30/18 1054 09/30/18 1054 Results 24hrs Laboratory Tests Test 09/30/18 10:54 White Blood Count 10.2 Red Blood Count 4.31 Hemoglobin 10.5 L Hematocrit 35.1 L Mean Corpuscular Volume 81.4 L Mean Corpuscular Hemoglobin 24.4 L Mean Corpuscular Hemoglobin Concent 29.9 L Red Cell Distribution Width 18.6 H Platelet Count 416 H Mean Platelet Volume 9.5 Immature Granulocytes % 0.400 Neutrophils % 76.2 Lymphocytes % 13.4 L Monocytes % 7.2 Eosinophils % 2.2 Basophils % 0.6 Nucleated Red Blood Cells % 0.0 Immature Granulocytes # 0.040 H Neutrophils # 7.8 H Lymphocytes # 1.4 Monocytes # 0.7 Eosinophils # 0.2 Basophils # 0.1 Nucleated Red Blood Cells # 0.0 Sodium Level 142 Potassium Level 3.6 Chloride Level 104 Carbon Dioxide Level 30 Anion Gap 8 Blood Urea Nitrogen 8 Creatinine 0.49 Est Glomerular Filtrat Rate mL/min Glucose Level 86 Calcium Level 8.3 L Magnesium Level 1.6 L Medications Medication Current Medications Sodium Chloride 1,000 ml @ 125 mls/hr Q8H IV Last administered on 09/29/18at 14:47; Admin Dose 125 MLS/HR; Start 09/28/18 at 11:05 IV Flush (NS 3 ml) 3 ml PER PROTOCOL IV ; Start 09/28/18 at 11:30 Ondansetron HCl (Zofran Inj) 4 mg Q6H PRN IV NAUSEA/VOMITING; Start 09/28/18 at 11:30 Acetaminophen (Tylenol Tab) 650 mg Q6H PRN PO .PAIN 1-3 OR TEMP; Start 09/28/18 at 11:30 Morphine Sulfate (morphine) 2 mg Q4H PRN IV .PAIN 7-10; Start 09/28/18 at 11:30 Enoxaparin Sodium (Lovenox) 30 mg DAILY SC Last administered on 09/29/18at 08:25; Admin Dose 30 MG; Start 09/29/18 at 09:00 Petrolatum (Vaseline) 1 applic BID TOP Last administered on 09/30/18at 08:55; Admin Dose 1 APPLIC; Start 09/28/18 at 15:00 Aztreonam 2 gm/ Sodium Chloride 100 ml @ 100 mls/hr Q8 IVPB Last administered on 09/29/18at 14:47; Admin Dose 100 MLS/HR; Start 09/29/18 at 06:52 Escitalopram Oxalate (Lexapro) 20 mg DAILY PO Last administered on 09/30/18at 08:58; Admin Dose 20 MG; Start 09/30/18 at 09:00 Lorazepam (Ativan) 0.5 mg Q6H PRN IV ANXIETY; Start 09/29/18 at 12:30 Famotidine (Pepcid) 20 mg BID PO ; Start 09/29/18 at 21:00 Aspirin (Halfprin) 81 mg DAILY PO ; Start 09/30/18 at 09:00 Atenolol (Tenormin) 25 mg DAILY PO Last administered on 09/30/18at 08:59; Admin Dose 25 MG; Start 09/30/18 at 09:00 Atorvastatin Calcium (Lipitor) 40 mg QHS PO ; Start 09/29/18 at 21:00 Pantoprazole (Protonix Tab) 40 mg DAILY@06 PO ; Start 09/30/18 at 09:00 Azithromycin (Zithromax) 250 mg DAILY PO Last administered on 09/30/18at 08:58; Admin Dose 250 MG; Start 09/30/18 at 09:00 Benazepril HCl (Lotensin) 10 mg DAILY PO Last administered on 09/30/18at 08:59; Admin Dose 10 MG; Start 09/30/18 at 09:00 Lorazepam (Ativan) 0.5 mg Q6H PRN PO ANXIETY; Start 09/29/18 at 20:00 Clonazepam (Klonopin) 1 mg BID PO Last administered on 09/30/18at 08:59; Admin Dose 1 MG; Start 09/29/18 at 21:00 Cefuroxime Axetil (Ceftin) 500 mg BID PO Last administered on 09/30/18at 09:02; Admin Dose 500 MG; Start 09/29/18 at 23:00 Magnesium Sulfate 50 ml @ 25 mls/hr ONCE ONCE IVPB ; Start 09/30/18 at 13:00; Stop 09/30/18 at 14:59 HILLARY MAR NP Sep 30, 2018 14:52
[2018-09-30] MEDS ORDERED: LEVOFLOXACIN 500 MG TAB PO ONE (15:00)
[2018-09-30 15:22] VITALS: BP 138/64; PULSE 65; RESP 17
--- NOTE | 2018-09-30 15:37 | PN ---
Date/Time of Note Date/Time of Note DATE: 09/30/18 TIME: 15:32 Assessment/Plan VTE Prophylaxis Risk score (from Ns)>0 risk: 4 SCD applied (from Ns): Yes Pharmacological prophylaxis: NA/contraindicated Pharm contraindication: anticoag not tolerated (frequent falls) Lines/Catheters IV Catheter Type (from [facility]): Peripheral IV Urinary Cath still in place: No Assessment/Plan Hospital Course Patient is lethargic, however, easily arousable, awake alert to name otherwise confused, refusing IV, refusing PICC line. Assessment/Plan -Community acquired pneumonia, continue aztreonam, breathing treatment, oxygen supplementation. Dr. Andrade is following in infection disease consultation. -Aspiration pneumonitis -Closed fracture of left zygomatic arch -Dehydration, moderate -UTI per UA -Sepsis secondary to pneumonia and urinary tract infection. -NSTEMI (non-ST elevated myocardial infarction). Continue aspirin and nitroglycerin PRN for pain. Dr. Brizuela is following in cardiology consultation. -Coronary artery disease, hx of percutaneous coronary intervention. -Chronic obstructive pulmonary disease possibly exacerbation. -Hypertension. Continue Norvasc and benazepril. -Dyslipidemia, continue Lipitor -Anxiety and depression. -Chronic pain syndrome with the history of a fibromyalgia. Patient follow-ups with the pain management doctor as an outpatient. -Hx of multiple falls. Further recommendations based on clinical course. Plan of care was discussed with Dr. Hannon. Result Diagram: 09/30/18 1054 09/30/18 1054 Results 24hrs Laboratory Tests Test 09/30/18 10:54 White Blood Count 10.2 Red Blood Count 4.31 Hemoglobin 10.5 L Hematocrit 35.1 L Mean Corpuscular Volume 81.4 L Mean Corpuscular Hemoglobin 24.4 L Mean Corpuscular Hemoglobin Concent 29.9 L Red Cell Distribution Width 18.6 H Platelet Count 416 H Mean Platelet Volume 9.5 Immature Granulocytes % 0.400 Neutrophils % 76.2 Lymphocytes % 13.4 L Monocytes % 7.2 Eosinophils % 2.2 Basophils % 0.6 Nucleated Red Blood Cells % 0.0 Immature Granulocytes # 0.040 H Neutrophils # 7.8 H Lymphocytes # 1.4 Monocytes # 0.7 Eosinophils # 0.2 Basophils # 0.1 Nucleated Red Blood Cells # 0.0 Sodium Level 142 Potassium Level 3.6 Chloride Level 104 Carbon Dioxide Level 30 Anion Gap 8 Blood Urea Nitrogen 8 Creatinine 0.49 Est Glomerular Filtrat Rate mL/min Glucose Level 86 Calcium Level 8.3 L Magnesium Level 1.6 L Exam/Review of Systems Exam Vitals Vital Signs Date Temp Pulse Resp B/P (MAP) Pulse Ox O2 O2 Flow FiO2 Time Delivery Rate 09/30/18 98.6 65 17 138/64 91 15:22 (88) 09/30/18 Nasal 2.0 08:44 Cannula 09/29/18 27 12:46 Intake and Output 09/29/18 09/29/18 09/30/18 1414:59 22:59 06:59 IntakeIntake Total 1800 ml 645 ml 100 ml BalanceBalance 1800 ml 645 ml 100 ml Exam Constitutional: alert, oriented Head: normocephalic Neck: supple Respiratory: clear to auscultation Cardiovascular: regular rate and rhythm Gastrointestinal: non-tender Musculoskeletal: nl extremities to inspection Extremities: normal pulses Neurological: nl mental status, confused Skin: nl turgor, other (Left facial ecchymosis) Results Results 24hrs Laboratory Tests Test 09/30/18 10:54 White Blood Count 10.2 Red Blood Count 4.31 Hemoglobin 10.5 L Hematocrit 35.1 L Mean Corpuscular Volume 81.4 L Mean Corpuscular Hemoglobin 24.4 L Mean Corpuscular Hemoglobin Concent 29.9 L Red Cell Distribution Width 18.6 H Platelet Count 416 H Mean Platelet Volume 9.5 Immature Granulocytes % 0.400 Neutrophils % 76.2 Lymphocytes % 13.4 L Monocytes % 7.2 Eosinophils % 2.2 Basophils % 0.6 Nucleated Red Blood Cells % 0.0 Immature Granulocytes # 0.040 H Neutrophils # 7.8 H Lymphocytes # 1.4 Monocytes # 0.7 Eosinophils # 0.2 Basophils # 0.1 Nucleated Red Blood Cells # 0.0 Sodium Level 142 Potassium Level 3.6 Chloride Level 104 Carbon Dioxide Level 30 Anion Gap 8 Blood Urea Nitrogen 8 Creatinine 0.49 Est Glomerular Filtrat Rate mL/min Glucose Level 86 Calcium Level 8.3 L Magnesium Level 1.6 L Medications Medication Current Medications Sodium Chloride 1,000 ml @ 125 mls/hr Q8H IV Last administered on 09/29/18at 14:47; Admin Dose 125 MLS/HR; Start 09/28/18 at 11:05 IV Flush (NS 3 ml) 3 ml PER PROTOCOL IV ; Start 09/28/18 at 11:30 Ondansetron HCl (Zofran Inj) 4 mg Q6H PRN IV NAUSEA/VOMITING; Start 09/28/18 at 11:30 Acetaminophen (Tylenol Tab) 650 mg Q6H PRN PO .PAIN 1-3 OR TEMP; Start 09/28/18 at 11:30 Morphine Sulfate (morphine) 2 mg Q4H PRN IV .PAIN 7-10; Start 09/28/18 at 11:30 Enoxaparin Sodium (Lovenox) 30 mg DAILY SC Last administered on 09/29/18at 08:25; Admin Dose 30 MG; Start 09/29/18 at 09:00 Petrolatum (Vaseline) 1 applic BID TOP Last administered on 09/30/18at 08:55; Admin Dose 1 APPLIC; Start 09/28/18 at 15:00 Escitalopram Oxalate (Lexapro) 20 mg DAILY PO Last administered on 09/30/18at 08:58; Admin Dose 20 MG; Start 09/30/18 at 09:00 Lorazepam (Ativan) 0.5 mg Q6H PRN IV ANXIETY; Start 09/29/18 at 12:30 Famotidine (Pepcid) 20 mg BID PO ; Start 09/29/18 at 21:00 Aspirin (Halfprin) 81 mg DAILY PO ; Start 09/30/18 at 09:00 Atenolol (Tenormin) 25 mg DAILY PO Last administered on 09/30/18at 08:59; Admin Dose 25 MG; Start 09/30/18 at 09:00 Atorvastatin Calcium (Lipitor) 40 mg QHS PO ; Start 09/29/18 at 21:00 Pantoprazole (Protonix Tab) 40 mg DAILY@06 PO ; Start 09/30/18 at 09:00 Benazepril HCl (Lotensin) 10 mg DAILY PO Last administered on 09/30/18at 08:59; Admin Dose 10 MG; Start 09/30/18 at 09:00 Lorazepam (Ativan) 0.5 mg Q6H PRN PO ANXIETY; Start 09/29/18 at 20:00 Clonazepam (Klonopin) 1 mg BID PO Last administered on 09/30/18at 08:59; Admin Dose 1 MG; Start 09/29/18 at 21:00 Levofloxacin (Levaquin) 250 mg DAILY@06 PO ; Start 10/01/18 at 06:00 NUZHAT ROSENTHAL Sep 30, 2018 15:37
[2018-09-30] MEDS: LORAZEPAM 0.5 MG TAB PO PRN (18:38)
[2018-09-30 20:00] VITALS: BP 139/64; PULSE 70; RESP 18
[2018-09-30] MEDS: ATORVASTATIN 40 MG TAB PO SCH (20:24)
[2018-09-30] MEDS: MAGNESIUM OXIDE 400 MG TAB PO SCH (21:00)
[2018-09-30 23:33] VITALS: BP 134/62; PULSE 68; RESP 19
[2018-10-01] MEDS: LORAZEPAM 0.5 MG TAB PO PRN ×2 (01:40→14:58)
[2018-10-01] MEDS: morphine 2 MG INJ IV PRN ×2 (01:58→21:31)
[2018-10-01] MEDS: SOD CHLORIDE 0.9% 1,000 ML IV SCH (03:05)
[2018-10-01 04:00] VITALS: BP 128/64; PULSE 63; RESP 18
[2018-10-01] MEDS: LEVOFLOXACIN 250 MG TAB PO SCH (06:10)
[2018-10-01] MEDS: PANTOPRAZOLE (EC) 40 MG TAB PO SCH (06:10)
[2018-10-01 07:19] VITALS: BP 153/70; PULSE 69; RESP 18
[2018-10-01] MEDS: PETROLATUM 5 GM OINT TOP SCH ×2 (09:13→21:20)
[2018-10-01] MEDS: clonAZEPAM 0.5 MG TAB PO SCH ×2 (09:13→21:20)
[2018-10-01] MEDS: ATENOLOL 25 MG TAB PO SCH (09:14)
[2018-10-01] MEDS: ESCITALOPRAM 10 MG TAB PO SCH (09:14)
[2018-10-01] MEDS: BENAZEPRIL 10 MG TAB PO SCH (09:14)
[2018-10-01] MEDS: FAMOTIDINE 20 MG TAB PO SCH ×2 (09:14→21:20)
[2018-10-01] MEDS: ASPIRIN (EC) 81 MG TAB PO SCH (09:14)
[2018-10-01] MEDS: MAGNESIUM OXIDE 400 MG TAB PO SCH ×2 (09:15→21:20)
[2018-10-01] MEDS: ENOXAPARIN 30 MG/0.3 ML SYG SC SCH (09:28)
[2018-10-01] MEDS: BALSAM PERU/CASTOR OIL 60 GM TUBE TOP SCH ×2 (09:29→21:23)
--- NOTE | 2018-10-01 12:28 | CONS ---
Assessment/Plan Assessment/Plan Hospital Course (Demo Recall) NSTEMI: Type II and unclear significance. Trops 0.15 x3. No symptoms. No further workup indicated in this pt PNA ?Fall Recent ankle fracture/syncope CAD s/p remote PCI with unknown details HTN smoker dementia/psychosis frequent falls h/o SDH 2014 -no further workup from cardiac perspective. Dispo per primary team -continue ASA, lipitor -atenolol 25mg and benazepril 10mg -hold amlodipine for now to avoid hypotension in pt with frequent falls Consultation Date/Type/Reason Admit Date/Time Sep 28, 2018 at 10:43 Initial Consult Date 09/30/18 Type of Consult Cardiology Requesting Provider: NUZHAT ROSENTHAL Date/Time of Note DATE: 10/01/18 TIME: 12:28 24 HR Interval Summary Free Text/Dictation No events. No complaints. Sitter at bedside due to fall risk Exam/Review of Systems Vital Signs Vitals Vital Signs Date Temp Pulse Resp B/P (MAP) Pulse Ox O2 O2 Flow FiO2 Time Delivery Rate 10/01/18 98.2 69 18 153/70 90 Room Air 07:19 (97) 09/30/18 2.0 08:44 09/29/18 27 12:46 Intake and Output 09/30/18 09/30/18 10/01/18 1515:00 23:00 07:00 IntakeIntake Total 580 ml 350 ml BalanceBalance 580 ml 350 ml Exam Constitutional: alert, oriented Psych: no complaints, nl mood/affect Head: normocephalic, atraumatic Neck: No jvd Respiratory: diminished breath sounds; No clear to auscultation Cardiovascular: regular rate and rhythm; No edema Gastrointestinal: soft, non-tender; No distended Neurological: nl mental status, nl speech Labs Result Diagram: 09/30/18 1054 09/30/18 1054 Medications Medications Current Medications IV Flush (NS 3 ml) 3 ml PER PROTOCOL IV ; Start 09/28/18 at 11:30 Ondansetron HCl (Zofran Inj) 4 mg Q6H PRN IV NAUSEA/VOMITING; Start 09/28/18 at 11:30 Acetaminophen (Tylenol Tab) 650 mg Q6H PRN PO .PAIN 1-3 OR TEMP; Start 09/28/18 at 11:30 Morphine Sulfate (morphine) 2 mg Q4H PRN IV .PAIN 7-10 Last administered on 10/01 01:58; Admin Dose 2 MG; Start 09/28/18 at 11:30 Enoxaparin Sodium (Lovenox) 30 mg DAILY SC Last administered on 10/01/18 09:28; Admin Dose 30 MG; Start 09/29/18 at 09:00 Petrolatum (Vaseline) 1 applic BID TOP Last administered on 10/01/18 09:13; Admin Dose 1 APPLIC; Start 09/28/18 at 15:00 Escitalopram Oxalate (Lexapro) 20 mg DAILY PO Last administered on 10/01/18 09:14; Admin Dose 20 MG; Start 09/30/18 at 09:00 Lorazepam (Ativan) 0.5 mg Q6H PRN IV ANXIETY; Start 09/29/18 at 12:30 Famotidine (Pepcid) 20 mg BID PO Last administered on 10/01/18 09:14; Admin Dose 20 MG; Start 09/29/18 at 21:00 Aspirin (Halfprin) 81 mg DAILY PO Last administered on 10/01/18 09:14; Admin Dose 81 MG; Start 09/30/18 at 09:00 Atenolol (Tenormin) 25 mg DAILY PO Last administered on 10/01/18 09:14; Admin Dose 25 MG; Start 09/30/18 at 09:00 Atorvastatin Calcium (Lipitor) 40 mg QHS PO Last administered on 09/30/18 20:24; Admin Dose 40 MG; Start 09/29/18 at 21:00 Pantoprazole (Protonix Tab) 40 mg DAILY@06 PO Last administered on 10/01/18 06:10; Admin Dose 40 MG; Start 09/30/18 at 09:00 Benazepril HCl (Lotensin) 10 mg DAILY PO Last administered on 10/01/18 09:14; Admin Dose 10 MG; Start 09/30/18 at 09:00 Lorazepam (Ativan) 0.5 mg Q6H PRN PO ANXIETY Last administered on 10/01/18 01:40; Admin Dose 0.5 MG; Start 09/29/18 at 20:00 Clonazepam (Klonopin) 1 mg BID PO Last administered on 7/3/19at 09:13; Admin Dose 1 MG; Start 09/29/18 at 21:00 Levofloxacin (Levaquin) 250 mg DAILY@06 PO Last administered on 10/01/18at 06:10; Admin Dose 250 MG; Start 10/01/18 at 06:00 Magnesium Oxide (Mag-Ox 400) 400 mg BID PO Last administered on 10/01/18at 09:15; Admin Dose 400 MG; Start 09/30/18 at 21:00 LARISSA SMTIH Oct 01, 2018 12:28
--- NOTE | 2018-10-01 14:27 | CONS ---
Assessment/Plan Assessment/Plan Hospital Course (Demo Recall) No acute events overnight patient is awake looks comfortable denies pain no fevers overnight. WBC yesterday was 10.2 no labs today Microbiology blood cultures since admission negative urine culture grew E. coli ESBL with repeat urine culture + yeast Antimicrobials: Levaquin Physical examination: Well-developed elderly woman who is awake in no distress. Head atraumatic normocephalic neck is supple chest rise symmetrical breath sounds diminished bases. Heart: S1-S2. Abdomen soft bowel sounds present. Extremities without cyanosis. Assessment: 1. Community-acquired pneumonia 2. Status post UTI 3. Non-ST elevation [place] 4. Hypertension 5. History of multiple falls Plan: Remains stable, continue antibiotics Consultation Date/Type/Reason Admit Date/Time Sep 28, 2018 at 10:43 Initial Consult Date 09/30/18 Type of Consult id Requesting Provider: NUZHAT ROSENTHAL Date/Time of Note DATE: 10/01/18 TIME: 14:26 Exam/Review of Systems Exam Vitals Vital Signs Date Temp Pulse Resp B/P (MAP) Pulse Ox O2 O2 Flow FiO2 Time Delivery Rate 10/01/18 Nasal 2.0 08:10 Cannula 10/01/18 98.2 69 18 153/70 90 07:19 (97) 09/29/18 27 12:46 Intake and Output 09/30/18 09/30/18 10/01/18 1414:59 22:59 06:59 IntakeIntake Total 580 ml 350 ml BalanceBalance 580 ml 350 ml Results Result Diagram: 09/30/18 1054 09/30/18 1054 Medications Medication Current Medications IV Flush (NS 3 ml) 3 ml PER PROTOCOL IV ; Start 09/28/18 at 11:30 Ondansetron HCl (Zofran Inj) 4 mg Q6H PRN IV NAUSEA/VOMITING; Start 09/28/18 at 11:30 Acetaminophen (Tylenol Tab) 650 mg Q6H PRN PO .PAIN 1-3 OR TEMP; Start 09/28/18 at 11:30 Morphine Sulfate (morphine) 2 mg Q4H PRN IV .PAIN 7-10 Last administered on 10/01/18at 01:58; Admin Dose 2 MG; Start 09/28/18 at 11:30 Enoxaparin Sodium (Lovenox) 30 mg DAILY SC Last administered on 10/01/18 09:28; Admin Dose 30 MG; Start 09/29/18 at 09:00 Petrolatum (Vaseline) 1 applic BID TOP Last administered on 10/01/18 09:13; Admin Dose 1 APPLIC; Start 09/28/18 at 15:00 Escitalopram Oxalate (Lexapro) 20 mg DAILY PO Last administered on 10/01/18 09:14; Admin Dose 20 MG; Start 09/30/18 at 09:00 Lorazepam (Ativan) 0.5 mg Q6H PRN IV ANXIETY; Start 09/29/18 at 12:30 Famotidine (Pepcid) 20 mg BID PO Last administered on 10/01/18 09:14; Admin Dose 20 MG; Start 09/29/18 at 21:00 Aspirin (Halfprin) 81 mg DAILY PO Last administered on 10/01/18 09:14; Admin Dose 81 MG; Start 09/30/18 at 09:00 Atenolol (Tenormin) 25 mg DAILY PO Last administered on 10/01/18 09:14; Admin Dose 25 MG; Start 09/30/18 at 09:00 Atorvastatin Calcium (Lipitor) 40 mg QHS PO Last administered on 09/30/18 20:2 4; Admin Dose 40 MG; Start 09/29/18 at 21:00 Pantoprazole (Protonix Tab) 40 mg DAILY@06 PO Last administered on 10/01/18 06:10; Admin Dose 40 MG; Start 09/30/18 at 09:00 Benazepril HCl (Lotensin) 10 mg DAILY PO Last administered on 10/01/18 09:14; Admin Dose 10 MG; Start 09/30/18 at 09:00 Lorazepam (Ativan) 0.5 mg Q6H PRN PO ANXIETY Last administered on 10/01/18 01:40; Admin Dose 0.5 MG; Start 09/29/18 at 20:00 Clonazepam (Klonopin) 1 mg BID PO Last administered on 10/01/18 09:13; Admin Dose 1 MG; Start 09/29/18 at 21:00 Levofloxacin (Levaquin) 250 mg DAILY@06 PO Last administered on 10/01/18 06:10; Admin Dose 250 MG; Start 10/01/18 at 06:00 Magnesium Oxide (Mag-Ox 400) 400 mg BID PO Last administered on 10/01/18at 09:15; Admin Dose 400 MG; Start 09/30/18 at 21:00 HILLARY MAR NP Oct 01, 2018 14:27
--- NOTE | 2018-10-01 16:11 | PN ---
Date/Time of Note Date/Time of Note DATE: 10/01/18 TIME: 16:06 Assessment/Plan VTE Prophylaxis Risk score (from Nsg)>0 risk: 2 SCD applied (from Nsg): Yes Pharmacological prophylaxis: LMWH Lines/Catheters IV Catheter Type (from Nrsg): Peripheral IV Urinary Cath still in place: No Assessment/Plan Hospital Course Patient is awake alert, however impulsive currently with one-to-one sitter. Pending psychiatric evaluation. Assessment/Plan -Community acquired pneumonia, continue aztreonam, breathing treatment, oxygen supplementation. Dr. Andrade is following in infection disease consultation. -Aspiration pneumonitis -Closed fracture of left zygomatic arch -Dehydration, moderate -UTI per UA -Sepsis secondary to pneumonia and urinary tract infection. -NSTEMI (non-ST elevated myocardial infarction). Continue aspirin, atenolol. Nitroglycerin PRN for pain. Dr. Brizuela is following in cardiology consultation. -Coronary artery disease, hx of percutaneous coronary intervention. -Chronic obstructive pulmonary disease possibly exacerbation. -Hypertension. Continue benazepril. -Dyslipidemia, continue Lipitor -Anxiety and depression. Continue Klonopin. -Chronic pain syndrome with the history of a fibromyalgia. Patient follow-ups with the pain management doctor as an outpatient. -Hx of multiple falls. Further recommendations based on clinical course. Plan of care was discussed with Dr. Hannon. Result Diagram: 09/30/18 1054 09/30/18 1054 Exam/Review of Systems Exam Vitals Vital Signs Date Temp Pulse Resp B/P (MAP) Pulse Ox O2 O2 Flow FiO2 Time Delivery Rate 10/01/18 Nasal 2.0 08:10 Cannula 10/01/18 98.2 69 18 153/70 90 07:19 (97) 09/29/18 27 12:46 Intake and Output 09/30/18 09/30/18 10/01/18 1515:00 23:00 07:00 IntakeIntake Total 580 ml 350 ml BalanceBalance 580 ml 350 ml Exam Constitutional: alert, oriented Head: normocephalic Neck: supple Respiratory: clear to auscultation Cardiovascular: regular rate and rhythm Gastrointestinal: non-tender Musculoskeletal: nl extremities to inspection Extremities: normal pulses Neurological: nl mental status, confused Skin: nl turgor, other (Left facial ecchymosis) Medications Medication Current Medications IV Flush (NS 3 ml) 3 ml PER PROTOCOL IV ; Start 09/28/18 at 11:30 Ondansetron HCl (Zofran Inj) 4 mg Q6H PRN IV NAUSEA/VOMITING; Start 09/28/18 at 11:30 Acetaminophen (Tylenol Tab) 650 mg Q6H PRN PO .PAIN 1-3 OR TEMP; Start 09/28/18 at 11:30 Morphine Sulfate (morphine) 2 mg Q4H PRN IV .PAIN 7-10 Last administered on 10/01/18 01:58; Admin Dose 2 MG; Start 09/28/18 at 11:30 Enoxaparin Sodium (Lovenox) 30 mg DAILY SC Last administered on 10/01/18 09:28; Admin Dose 30 MG; Start 09/29/18 at 09:00 Petrolatum (Vaseline) 1 applic BID TOP Last administered on 10/01/18 09:13; Admin Dose 1 APPLIC; Start 09/28/18 at 15:00 Escitalopram Oxalate (Lexapro) 20 mg DAILY PO Last administered on 10/01/18 09:14; Admin Dose 20 MG; Start 09/30/18 at 09:00 Lorazepam (Ativan) 0.5 mg Q6H PRN IV ANXIETY; Start 09/29/18 at 12:30 Famotidine (Pepcid) 20 mg BID PO Last administered on 10/01/18 09:14; Admin Dose 20 MG; Start 09/29/18 at 21:00 Aspirin (Halfprin) 81 mg DAILY PO Last administered on 10/01/18 09:14; Admin Dose 81 MG; Start 09/30/18 at 09:00 Atenolol (Tenormin) 25 mg DAILY PO Last administered on 10/01/18 09:14; Admin Dose 25 MG; Start 09/30/18 at 09:00 Atorvastatin Calcium (Lipitor) 40 mg QHS PO Last administered on 09/30/18 20:24; Admin Dose 40 MG; Start 09/29/18 at 21:00 Pantoprazole (Protonix Tab) 40 mg DAILY@06 PO Last administered on 10/01/18 06:10; Admin Dose 40 MG; Start 09/30/18 at 09:00 Benazepril HCl (Lotensin) 10 mg DAILY PO Last administered on 10/01/18 09:14; Admin Dose 10 MG; Start 09/30/18 at 09:00 Lorazepam (Ativan) 0.5 mg Q6H PRN PO ANXIETY Last administered on 10/01/18 14:58; Admin Dose 0.5 MG; Start 09/29/18 at 20:00 Clonazepam (Klonopin) 1 mg BID PO Last administered on 10/01/18 09:13; Admin Dose 1 MG; Start 09/29/18 at 21:00 Levofloxacin (Levaquin) 250 mg DAILY@06 PO Last administered on 10/01/18 06:10; Admin Dose 250 MG; Start 10/01/18 at 06:00 Magnesium Oxide (Mag-Ox 400) 400 mg BID PO Last administered on 10/01/18 09:15; Admin Dose 400 MG; Start 09/30/18 at 21:00 NUZHAT ROSENTHAL Oct 01, 2018 16:11
--- NOTE | 2018-10-01 17:08 | PSY ---
Date/Time of Note Date/Time of Note DATE: 10/01/18 TIME: 17:07 Psychiatric Subjective Eval Subjective Evaluation Chief Complaint: found lying next to bed this morning by caregiver History of present illness Patient is 73-year-old female with underlying medical history including COPD, hypertension, coronary artery disease, and dyslipidemia. The [id number] evaluation, patient reports feeling sadness and hopeless she is states she has occasional episodes of suicidal thoughts but with no plan patient states she is still grieving the loss of her leg brother however looking forward to seeing her grandson makes her want to leave she denies any plan of killing herself and contracted for safety. Explained risk and benefits of antidepressants and she verbalized understanding., Past psychiatric history Long history of depression Hospitalization: other Medical history Problems Medical Problems: (1) Acute weakness Status: Acute (2) Aspiration pneumonitis Status: Acute (3) Ataxia Status: Acute (4) Closed fracture of left zygomatic arch Status: Acute (5) Closed left radial fracture Status: Acute (6) Community acquired pneumonia Status: Acute (7) COPD (chronic obstructive pulmonary disease) Status: Acute (8) Dehydration, moderate Status: Acute (9) Fall Status: Acute (10) Fibromyalgia Status: Acute (11) Fibromyalgia Status: Acute (12) Generalized weakness Status: Acute (13) Left against medical advice Status: Acute (14) Leukocytosis Status: Acute (15) NSTEMI (non-ST elevated myocardial infarction) Status: Acute (16) Opiate overdose Status: Acute (17) Rhabdomyolysis Status: Acute (18) Sepsis Status: Acute (19) Subdural hemorrhage Status: Acute (20) Syncope Status: Acute Allergies: Coded Allergies: Penicillins (Verified Allergy, Unknown, 09/28/18) codeine (Verified Allergy, Unknown, 09/28/18) Substance Abuse Substance abuse history: No Prior substance abuse treatmen: No Social History Marital status: other DPA/Conservatorship: No Psychiatric Objective Eval Review of Systems: Review of Systems: Not Applicable Physical Examination: Physical Examination: Not Applicable Energy: Decreased Interest: Decreased Mental Status Examination: Appearance: Poor Hygiene Behavior: Cooperative Speech: Soft AFFECT: Flat Mood: Depressed, Anxious Though Process: Linear Thought Content: Normal Orientation: x4 Attention Span: Distractible Laboratory Results Laboratory Tests Test 09/30/18 10:54 White Blood Count 10.2 10^3/ul Red Blood Count 4.31 10^6/ul Hemoglobin 10.5 g/dl Hematocrit 35.1 % Mean Corpuscular Volume 81.4 fl Mean Corpuscular Hemoglobin 24.4 pg Mean Corpuscular Hemoglobin Concent 29.9 g/dl Red Cell Distribution Width 18.6 % Platelet Count 416 10^3/UL Mean Platelet Volume 9.5 fl Immature Granulocytes % 0.400 % Neutrophils % 76.2 % Lymphocytes % 13.4 % Monocytes % 7.2 % Eosinophils % 2.2 % Basophils % 0.6 % Nucleated Red Blood Cells % 0.0 /100WBC Immature Granulocytes # 0.040 10^3/ul Neutrophils # 7.8 10^3/ul Lymphocytes # 1.4 10^3/ul Monocytes # 0.7 10^3/ul Eosinophils # 0.2 10^3/ul Basophils # 0.1 10^3/ul Nucleated Red Blood Cells # 0.0 10^3/ul Sodium Level 142 mmol/L Potassium Level 3.6 mmol/L Chloride Level 104 mmol/L Carbon Dioxide Level 30 mmol/L Anion Gap 8 Blood Urea Nitrogen 8 mg/dl Creatinine 0.49 mg/dl Est Glomerular Filtrat Rate mL/min mL/min Glucose Level 86 mg/dl Calcium Level 8.3 mg/dl Magnesium Level 1.6 mg/dl Assessment and Plan Assessment/Diagnosis Diagnosis Major depressive disorder severe recurrent without psychosis Recommendation/Plan Medication Management Lexapro 20 mg daily, Abilify 2 mg daily Multiple antipsychotics: No Discharge Disposition: Community Legal Status: Voluntary (Does not meet criteria for 5150 hold) GARETH PÉREZ NP Oct 01, 2018 17:08
[2018-10-01 18:43] VITALS: BP 117/67; PULSE 60; RESP 18
[2018-10-01 19:28] VITALS: BP 107/62; PULSE 65; RESP 17
[2018-10-01 20:00] VITALS: PULSE 60
[2018-10-01] MEDS: ATORVASTATIN 40 MG TAB PO SCH (21:20)
[2018-10-01 23:53] VITALS: BP 108/63; PULSE 72; RESP 18
[2018-10-02 03:32] VITALS: BP 125/63; PULSE 66; RESP 17
[2018-10-02] MEDS: LEVOFLOXACIN 250 MG TAB PO SCH (05:45)
[2018-10-02] MEDS: PANTOPRAZOLE (EC) 40 MG TAB PO SCH (05:45)
[2018-10-02 07:16] VITALS: BP 145/65; PULSE 66; RESP 18
--- NOTE | 2018-10-02 08:56 | CONS ---
Assessment/Plan Assessment/Plan Hospital Course (Demo Recall) NSTEMI: Type II and unclear significance. Trops 0.15 x3. No symptoms. No further workup indicated in this pt PNA ?Fall Recent ankle fracture/syncope CAD s/p remote PCI with unknown details HTN smoker dementia/psychosis frequent falls h/o SDH 2014 -Ok for d/c from cardiac perspective -continue ASA, lipitor -atenolol 25mg and benazepril 10mg -hold amlodipine for now to avoid hypotension in pt with frequent falls Consultation Date/Type/Reason Admit Date/Time Sep 28, 2018 at 10:43 Initial Consult Date 09/30/18 Type of Consult Cardiology Requesting Provider: NUZHAT ROSENTHAL Date/Time of Note DATE: 10/02/18 TIME: 08:56 24 HR Interval Summary Free Text/Dictation Sitting in chair this am and very pleasant. No complaints Exam/Review of Systems Vital Signs Vitals Vital Signs Date Temp Pulse Resp B/P (MAP) Pulse Ox O2 O2 Flow FiO2 Time Delivery Rate 10/02/18 98.6 66 18 145/65 92 07:16 (91) 10/02/18 Room Air 03:32 10/01/18 2.0 08:10 09/29/18 27 12:46 Intake and Output 10/01/18 10/01/18 10/02/18 1515:00 23:00 07:00 IntakeIntake Total 410 ml BalanceBalance 410 ml Exam Constitutional: alert, oriented Psych: no complaints, nl mood/affect Head: normocephalic, atraumatic Neck: supple; No jvd Respiratory: diminished breath sounds; No clear to auscultation Cardiovascular: regular rate and rhythm; No edema Gastrointestinal: soft, non-tender; No distended Neurological: nl mental status, nl speech Labs Result Diagram: 10/02/18 0510 10/02/18 0510 Results 24hrs Laboratory Tests Test 10/02/18 05:10 White Blood Count 9.0 Red Blood Count 4.35 Hemoglobin 10.6 L Hematocrit 35.5 L Mean Corpuscular Volume 81.6 L Mean Corpuscular Hemoglobin 24.4 L Mean Corpuscular Hemoglobin Concent 29.9 L Red Cell Distribution Width 18.9 H Platelet Count 437 H Mean Platelet Volume 9.7 Immature Granulocytes % 0.600 H Neutrophils % 61.6 Lymphocytes % 23.7 Monocytes % 9.4 Eosinophils % 4.1 Basophils % 0.6 Nucleated Red Blood Cells % 0.0 Immature Granulocytes # 0.050 H Neutrophils # 5.5 Lymphocytes # 2.1 Monocytes # 0.8 Eosinophils # 0.4 Basophils # 0.1 Nucleated Red Blood Cells # 0.0 Sodium Level 143 Potassium Level 3.5 Chloride Level 105 Carbon Dioxide Level 32 H Anion Gap 6 Blood Urea Nitrogen 10 Creatinine 0.59 Est Glomerular Filtrat Rate mL/min Glucose Level 87 Calcium Level 8.1 L Magnesium Level 1.9 Medications Medications Current Medications IV Flush (NS 3 ml) 3 ml PER PROTOCOL IV ; Start 09/28/18 at 11:30 Ondansetron HCl (Zofran Inj) 4 mg Q6H PRN IV NAUSEA/VOMITING; Start 09/28/18 at 11:30 Acetaminophen (Tylenol Tab) 650 mg Q6H PRN PO .PAIN 1-3 OR TEMP; Start 09/28/18 at 11:30 Morphine Sulfate (morphine) 2 mg Q4H PRN IV .PAIN 7-10 Last administered on 10/01/18 21:31; Admin Dose 2 MG; Start 09/28/18 at 11:30 Enoxaparin Sodium (Lovenox) 30 mg DAILY SC Last administered on 10/01/18 09:28; Admin Dose 30 MG; Start 09/29/18 at 09:00 Petrolatum (Vaseline) 1 applic BID TOP Last administered on 10/01/18 21:20; Admin Dose 1 APPLIC; Start 09/28/18 at 15:00 Escitalopram Oxalate (Lexapro) 20 mg DAILY PO Last administered on 10/01/18 09:14; Admin Dose 20 MG; Start 09/30/18 at 09:00 Lorazepam (Ativan) 0.5 mg Q6H PRN IV ANXIETY; Start 09/29/18 at 12:30 Famotidine (Pepcid) 20 mg BID PO Last administered on 10/01/18 21:20; Admin Dose 20 MG; Start 09/29/18 at 21:00 Aspirin (Halfprin) 81 mg DAILY PO Last administered on 10/01/18 09:14; Admin Dose 81 MG; Start 09/30/18 at 09:00 Atenolol (Tenormin) 25 mg DAILY PO Last administered on 10/01/18 09:14; Admin Dose 25 MG; Start 09/30/18 at 09:00 Atorvastatin Calcium (Lipitor) 40 mg QHS PO Last administered on 10/01/18 21:20; Admin Dose 40 MG; Start 09/29/18 at 21:00 Pantoprazole (Protonix Tab) 40 mg DAILY@06 PO Last administered on 10/02/18 05:45; Admin Dose 40 MG; Start 09/30/18 at 09:00 Benazepril HCl (Lotensin) 10 mg DAILY PO Last administered on 10/01/18 09:14; Admin Dose 10 MG; Start 09/30/18 at 09:00 Lorazepam (Ativan) 0.5 mg Q6H PRN PO ANXIETY Last administered on 10/01/18 14:58; Admin Dose 0.5 MG; Start 09/29/18 at 20:00 Clonazepam (Klonopin) 1 mg BID PO Last administered on 10/01/18 21:20; Admin Dose 1 MG; Start 09/29/18 at 21:00 Levofloxacin (Levaquin) 250 mg DAILY@06 PO Last administered on 10/02/18 05:45; Admin Dose 250 MG; Start 10/01/18 at 06:00 Magnesium Oxide (Mag-Ox 400) 400 mg BID PO Last administered on 10/01/18 21:20; Admin Dose 400 MG; Start 09/30/18 at 21:00 LARISSA SMITH Oct 02, 2018 08:56
[2018-10-02] MEDS: ASPIRIN (EC) 81 MG TAB PO SCH (09:16)
[2018-10-02] MEDS: ATENOLOL 25 MG TAB PO SCH (09:16)
[2018-10-02] MEDS: FAMOTIDINE 20 MG TAB PO SCH ×2 (09:16→20:08)
[2018-10-02] MEDS: PETROLATUM 5 GM OINT TOP SCH ×2 (09:16→20:08)
[2018-10-02] MEDS: BENAZEPRIL 10 MG TAB PO SCH (09:17)
[2018-10-02] MEDS: ESCITALOPRAM 10 MG TAB PO SCH (09:17)
[2018-10-02] MEDS: MAGNESIUM OXIDE 400 MG TAB PO SCH ×2 (09:17→20:08)
[2018-10-02] MEDS: clonAZEPAM 0.5 MG TAB PO SCH ×2 (09:17→20:08)
[2018-10-02] MEDS: BALSAM PERU/CASTOR OIL 60 GM TUBE TOP SCH ×2 (09:18→20:09)
[2018-10-02] MEDS: ENOXAPARIN 30 MG/0.3 ML SYG SC SCH (09:25)
--- NOTE | 2018-10-02 12:05 | CONS ---
Assessment/Plan Assessment/Plan Hospital Course (Demo Recall) ID PROGRESS NOTE CURRENT ABX: DAY # =>Levaquin 10/02/18 0510 10/02/18 0510 24H INTERVAL SUMMARY * Awake, ambulatory with unsteady gait, sitter in room * Pleasant, Smiling, wants to know "why am I being overmedicated." * Afebrile, VSS, NAD -- without dyspnea on room air DIAGNOSTIC IMAGING * 09/29/18 MICRO BLOOD CULTURE Preliminary BCULT GRAM BOTTLE 1 Gram positive cocci in clusters 1 of 1 bottle . seen on gram stain of the broth Organism 1 GRAM POSITIVE COCCI IN CLUSTER PHYSICAL EXAMINATION: GENERAL: VSS, NAD HEENT: AT, NC, NECK: Supple, CHEST: Rise symmetrical HEART: Pulse RRR ABDOMEN: Soft EXTREMITIES: Warm, dry SKIN: No rash, no diaphoresis ID ASSESSMENT 73 yo F admit with: 1. SIRS w/Leukocytosis on admission 09/28/18 * 09/29/18 (+)BCx 1/2 bottles GPC clusters ? skin contaminant ? 2. Community-acquired PNA vs ASP PNA * Risk factors for ASP PNA = Moderate size hiatal hernia + dementia 3. Non-ST elevation [place] 4. UTI = E.Coli ESBL 5. Hypertension 6. History of multiple falls 7. Mild dementia - CT Brain: Atrophy. White matter disease compatible with chronic small vessel ischemia. ABX ALLERGIES: PCN INVASIVES: PIV CURRENT ABX: DAY # =>Levaquin ID RECOMMENDATIONS/PLAN: 1. She does not appear septic, no clinical indicators for sepsis * Possible skin contaminated blood cx -- awaiting final micro 2. ASP Precautions. Consultation Date/Type/Reason Admit Date/Time Sep 28, 2018 at 10:43 Initial Consult Date 09/30/18 Requesting Provider: NUZHAT ROSENTHAL Date/Time of Note DATE: 10/02/18 TIME: 12:05 Exam/Review of Systems Exam Vitals Vital Signs Date Temp Pulse Resp B/P (MAP) Pulse Ox O2 O2 Flow FiO2 Time Delivery Rate 10/02/18 Nasal 2.0 08:02 Cannula 10/02/18 98.6 66 18 145/65 92 07:16 (91) 09/29/18 27 12:46 Intake and Output 10/01/18 10/01/18 10/02/18 1515:00 23:00 07:00 IntakeIntake Total 410 ml BalanceBalance 410 ml Results Result Diagram: 10/02/18 0510 10/02/18 0510 Results 24hrs Laboratory Tests Test 10/02/18 05:10 White Blood Count 9.0 Red Blood Count 4.35 Hemoglobin 10.6 L Hematocrit 35.5 L Mean Corpuscular Volume 81.6 L Mean Corpuscular Hemoglobin 24.4 L Mean Corpuscular Hemoglobin Concent 29.9 L Red Cell Distribution Width 18.9 H Platelet Count 437 H Mean Platelet Volume 9.7 Immature Granulocytes % 0.600 H Neutrophils % 61.6 Lymphocytes % 23.7 Monocytes % 9.4 Eosinophils % 4.1 Basophils % 0.6 Nucleated Red Blood Cells % 0.0 Immature Granulocytes # 0.050 H Neutrophils # 5.5 Lymphocytes # 2.1 Monocytes # 0.8 Eosinophils # 0.4 Basophils # 0.1 Nucleated Red Blood Cells # 0.0 Sodium Level 143 Potassium Level 3.5 Chloride Level 105 Carbon Dioxide Level 32 H Anion Gap 6 Blood Urea Nitrogen 10 Creatinine 0.59 Est Glomerular Filtrat Rate mL/min Glucose Level 87 Calcium Level 8.1 L Magnesium Level 1.9 Medications Medication Current Medications IV Flush (NS 3 ml) 3 ml PER PROTOCOL IV ; Start 09/28/18 at 11:30 Ondansetron HCl (Zofran Inj) 4 mg Q6H PRN IV NAUSEA/VOMITING; Start 09/28/18 at 11:30 Acetaminophen (Tylenol Tab) 650 mg Q6H PRN PO .PAIN 1-3 OR TEMP; Start 09/28/18 at 11:30 Morphine Sulfate (morphine) 2 mg Q4H PRN IV .PAIN 7-10 Last administered on 10/01/18at 21:31; Admin Dose 2 MG; Start 09/28/18 at 11:30 Enoxaparin Sodium (Lovenox) 30 mg DAILY SC Last administered on 10/02/18at 09:25; Admin Dose 30 MG; Start 09/29/18 at 09:00 Petrolatum (Vaseline) 1 applic BID TOP Last administered on 10/02/18 09:16; Admin Dose 1 APPLIC; Start 09/28/18 at 15:00 Escitalopram Oxalate (Lexapro) 20 mg DAILY PO Last administered on 10/02/18at 09:17; Admin Dose 20 MG; Start 09/30/18 at 09:00 Lorazepam (Ativan) 0.5 mg Q6H PRN IV ANXIETY; Start 09/29/18 at 12:30 Famotidine (Pepcid) 20 mg BID PO Last administered on 10/02/18 09:16; Admin Dose 20 MG; Start 09/29/18 at 21:00 Aspirin (Halfprin) 81 mg DAILY PO Last administered on 10/02/18 09:16; Admin Dose 81 MG; Start 09/30/18 at 09:00 Atenolol (Tenormin) 25 mg DAILY PO Last administered on 10/02/18 09:16; Admin Dose 25 MG; Start 09/30/18 at 09:00 Atorvastatin Calcium (Lipitor) 40 mg QHS PO Last administered on 10/01/18 21:20; Admin Dose 40 MG; Start 09/29/18 at 21:00 Pantoprazole (Protonix Tab) 40 mg DAILY@06 PO Last administered on 10/02/18 05:45; Admin Dose 40 MG; Start 09/30/18 at 09:00 Benazepril HCl (Lotensin) 10 mg DAILY PO Last administered on 10/02/18 09:17; Admin Dose 10 MG; Start 09/30/18 at 09:00 Lorazepam (Ativan) 0.5 mg Q6H PRN PO ANXIETY Last administered on 10/01/18 14:58; Admin Dose 0.5 MG; Start 09/29/18 at 20:00 Clonazepam (Klonopin) 1 mg BID PO Last administered on 10/02/18 09:17; Admin Dose 1 MG; Start 09/29/18 at 21:00 Levofloxacin (Levaquin) 250 mg DAILY@06 PO Last administered on 10/02/18 05:45; Admin Dose 250 MG; Start 10/01/18 at 06:00 Magnesium Oxide (Mag-Ox 400) 400 mg BID PO Last administered on 10/02/18 09:17; Admin Dose 400 MG; Start 09/30/18 at 21:00 ARUN CORDOBA NP Oct 02, 2018 12:05
--- NOTE | 2018-10-02 12:41 | PN ---
Date/Time of Note Date/Time of Note DATE: 10/02/18 TIME: 12:37 Assessment/Plan VTE Prophylaxis Risk score (from Nsg)>0 risk: 3 SCD applied (from Ns): Yes SCD contraindicated: patient refusal Pharmacological prophylaxis: LMWH Lines/Catheters IV Catheter Type (from Nrsg): Peripheral IV Urinary Cath still in place: No Assessment/Plan Hospital Course Patient is awake alert, denies any shortness of breath, denies pain patient is very impulsive with history of multiple falls continues with one-to-one sitter for safety. Regular heart rate, magnesium is 1.9. Okay to transfer to U. Assessment/Plan -Community acquired pneumonia, continue Levaquin, breathing treatment, oxygen supplementation. Dr. Andrade is following in infection disease consultation. -Aspiration pneumonitis -Closed fracture of left zygomatic arch -Dehydration, moderate -UTI per UA -Sepsis secondary to pneumonia and urinary tract infection. -NSTEMI (non-ST elevated myocardial infarction). Continue aspirin, atenolol. Nitroglycerin PRN for pain. Dr. Brizuela is following in cardiology consultation. -Coronary artery disease, hx of percutaneous coronary intervention. -Chronic obstructive pulmonary disease possibly exacerbation. -Hypertension. Continue benazepril. 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 Status post evaluation in psychiatric consultation by MINISTERIO Contreras. Continue Lexapro and Minal lify. -Chronic pain syndrome with the history of a fibromyalgia. Patient follow-ups with the pain management doctor as an outpatient. -Hx of multiple falls. Further recommendations based on clinical course. Plan of care was discussed with Dr. Hannon. Result Diagram: 10/02/18 0510 10/02/18 0510 Results 24hrs Laboratory Tests Test 10/02/18 05:10 White Blood Count 9.0 Red Blood Count 4.35 Hemoglobin 10.6 L Hematocrit 35.5 L Mean Corpuscular Volume 81.6 L Mean Corpuscular Hemoglobin 24.4 L Mean Corpuscular Hemoglobin Concent 29.9 L Red Cell Distribution Width 18.9 H Platelet Count 437 H Mean Platelet Volume 9.7 Immature Granulocytes % 0.600 H Neutrophils % 61.6 Lymphocytes % 23.7 Monocytes % 9.4 Eosinophils % 4.1 Basophils % 0.6 Nucleated Red Blood Cells % 0.0 Immature Granulocytes # 0.050 H Neutrophils # 5.5 Lymphocytes # 2.1 Monocytes # 0.8 Eosinophils # 0.4 Basophils # 0.1 Nucleated Red Blood Cells # 0.0 Sodium Level 143 Potassium Level 3.5 Chloride Level 105 Carbon Dioxide Level 32 H Anion Gap 6 Blood Urea Nitrogen 10 Creatinine 0.59 Est Glomerular Filtrat Rate mL/min Glucose Level 87 Calcium Level 8.1 L Magnesium Level 1.9 Exam/Review of Systems Exam Vitals Vital Signs Date Temp Pulse Resp B/P (MAP) Pulse Ox O2 O2 Flow FiO2 Time Delivery Rate 10/02/18 Nasal 2.0 08:02 Cannula 10/02/18 98.6 66 18 145/65 92 07:16 (91) 09/29/18 27 12:46 Intake and Output 10/01/18 10/01/18 10/02/18 1515:00 23:00 07:00 IntakeIntake Total 410 ml BalanceBalance 410 ml Exam Constitutional: alert, oriented Head: normocephalic Neck: supple Respiratory: clear to auscultation Cardiovascular: regular rate and rhythm Gastrointestinal: non-tender Musculoskeletal: nl extremities to inspection Extremities: normal pulses Neurological: nl mental status, confused Skin: nl turgor, other (Left facial ecchymosis) Results Results 24hrs Laboratory Tests Test 10/02/18 05:10 White Blood Count 9.0 Red Blood Count 4.35 Hemoglobin 10.6 L Hematocrit 35.5 L Mean Corpuscular Volume 81.6 L Mean Corpuscular Hemoglobin 24.4 L Mean Corpuscular Hemoglobin Concent 29.9 L Red Cell Distribution Width 18.9 H Platelet Count 437 H Mean Platelet Volume 9.7 Immature Granulocytes % 0.600 H Neutrophils % 61.6 Lymphocytes % 23.7 Monocytes % 9.4 Eosinophils % 4.1 Basophils % 0.6 Nucleated Red Blood Cells % 0.0 Immature Granulocytes # 0.050 H Neutrophils # 5.5 Lymphocytes # 2.1 Monocytes # 0.8 Eosinophils # 0.4 Basophils # 0.1 Nucleated Red Blood Cells # 0.0 Sodium Level 143 Potassium Level 3.5 Chloride Level 105 Carbon Dioxide Level 32 H Anion Gap 6 Blood Urea Nitrogen 10 Creatinine 0.59 Est Glomerular Filtrat Rate mL/min Glucose Level 87 Calcium Level 8.1 L Magnesium Level 1.9 Medications Medication Current Medications IV Flush (NS 3 ml) 3 ml PER PROTOCOL IV ; Start 09/28/18 at 11:30 Ondansetron HCl (Zofran Inj) 4 mg Q6H PRN IV NAUSEA/VOMITING; Start 09/28/18 at 11:30 Acetaminophen (Tylenol Tab) 650 mg Q6H PRN PO .PAIN 1-3 OR TEMP; Start 09/28/18 at 11:30 Morphine Sulfate (morphine) 2 mg Q4H PRN IV .PAIN 7-10 Last administered on 10/01/18 21:31; Admin Dose 2 MG; Start 09/28/18 at 11:30 Enoxaparin Sodium (Lovenox) 30 mg DAILY SC Last administered on 10/02/18 09:25; Admin Dose 30 MG; Start 09/29/18 at 09:00 Petrolatum (Vaseline) 1 applic BID TOP Last administered on 10/02/18 09:16; Admin Dose 1 APPLIC; Start 09/28/18 at 15:00 Escitalopram Oxalate (Lexapro) 20 mg DAILY PO Last administered on 10/02/18 09:17; Admin Dose 20 MG; Start 09/30/18 at 09:00 Lorazepam (Ativan) 0.5 mg Q6H PRN IV ANXIETY; Start 09/29/18 at 12:30 Famotidine (Pepcid) 20 mg BID PO Last administered on 10/02/18 09:16; Admin Dose 20 MG; Start 09/29/18 at 21:00 Aspirin (Halfprin) 81 mg DAILY PO Last administered on 10/02/18 09:16; Admin Dose 81 MG; Start 09/30/18 at 09:00 Atenolol (Tenormin) 25 mg DAILY PO Last administered on 10/02/18 09:16; Admin Dose 25 MG; Start 09/30/18 at 09:00 Atorvastatin Calcium (Lipitor) 40 mg QHS PO Last administered on 10/01/18 21:20; Admin Dose 40 MG; Start 09/29/18 at 21:00 Pantoprazole (Protonix Tab) 40 mg DAILY@06 PO Last administered on 10/02/18 05:45; Admin Dose 40 MG; Start 09/30/18 at 09:00 Benazepril HCl (Lotensin) 10 mg DAILY PO Last administered on 10/02/18 09:17; Admin Dose 10 MG; Start 09/30/18 at 09:00 Lorazepam (Ativan) 0.5 mg Q6H PRN PO ANXIETY Last administered on 10/01/18at 14:58; Admin Dose 0.5 MG; Start 09/29/18 at 20:00 Clonazepam (Klonopin) 1 mg BID PO Last administered on 10/02/18at 09:17; Admin Dose 1 MG; Start 09/29/18 at 21:00 Levofloxacin (Levaquin) 250 mg DAILY@06 PO Last administered on 10/02/18at 05:45; Admin Dose 250 MG; Start 10/01/18 at 06:00 Magnesium Oxide (Mag-Ox 400) 400 mg BID PO Last administered on 10/02/18at 09:17; Admin Dose 400 MG; Start 09/30/18 at 21:00 NUZHAT ROSENTHAL Oct 02, 2018 12:41
[2018-10-02 12:45] VITALS: BP 103/59; PULSE 60; RESP 18
[2018-10-02] MEDS: LORAZEPAM 0.5 MG TAB PO PRN (13:37)
[2018-10-02 16:46] VITALS: BP 112/56; PULSE 56; RESP 18
[2018-10-02] MEDS: morphine 2 MG INJ IV PRN (18:29)
[2018-10-02 18:36] VITALS: BP 141/65; PULSE 62; RESP 18
[2018-10-02] MEDS: ATORVASTATIN 40 MG TAB PO SCH (20:08)
[2018-10-03 02:39] VITALS: BP 134/61; PULSE 58; RESP 16
[2018-10-03] MEDS: LEVOFLOXACIN 250 MG TAB PO SCH (06:28)
[2018-10-03] MEDS: PANTOPRAZOLE (EC) 40 MG TAB PO SCH (06:28)
[2018-10-03] MEDS: morphine 2 MG INJ IV PRN ×2 (06:28→18:16)
[2018-10-03 07:42] VITALS: BP 142/58; PULSE 62; RESP 20
[2018-10-03] MEDS: clonAZEPAM 0.5 MG TAB PO SCH ×2 (09:07→20:42)
[2018-10-03] MEDS: FAMOTIDINE 20 MG TAB PO SCH ×2 (09:07→20:41)
[2018-10-03] MEDS: ESCITALOPRAM 10 MG TAB PO SCH (09:07)
[2018-10-03] MEDS: MAGNESIUM OXIDE 400 MG TAB PO SCH ×2 (09:07→20:41)
[2018-10-03] MEDS: BALSAM PERU/CASTOR OIL 60 GM TUBE TOP SCH ×2 (09:08→20:44)
[2018-10-03] MEDS: ATENOLOL 25 MG TAB PO SCH (09:08)
[2018-10-03] MEDS: ASPIRIN (EC) 81 MG TAB PO SCH (09:08)
[2018-10-03] MEDS: PETROLATUM 5 GM OINT TOP SCH ×2 (09:08→20:41)
[2018-10-03] MEDS: ENOXAPARIN 30 MG/0.3 ML SYG SC SCH (09:09)
--- NOTE | 2018-10-03 09:54 | CONS ---
Assessment/Plan Assessment/Plan Hospital Course (Demo Recall) NSTEMI: Type II and unclear significance. Trops 0.15 x3. No symptoms. No further workup indicated in this pt PNA ?Fall Recent ankle fracture/syncope CAD s/p remote PCI with unknown details HTN smoker dementia/psychosis frequent falls h/o SDH 2014 -Ok for d/c from cardiac perspective. Will follow PRN -continue ASA, lipitor -atenolol 25mg and benazepril 10mg -hold amlodipine for now to avoid hypotension in pt with frequent falls Consultation Date/Type/Reason Admit Date/Time Sep 28, 2018 at 10:43 Initial Consult Date 09/30/18 Type of Consult Cardiology Requesting Provider: NUZHAT ROSENTHAL Date/Time of Note DATE: 10/03/18 TIME: 09:54 24 HR Interval Summary Free Text/Dictation No events. No complaints Exam/Review of Systems Vital Signs Vitals Vital Signs Date Temp Pulse Resp B/P (MAP) Pulse Ox O2 O2 Flow FiO2 Time Delivery Rate 10/03/18 98.3 62 20 142/58 92 07:42 (86) 10/02/18 Room Air 18:36 10/02/18 2.0 08:02 09/29/18 27 12:46 Intake and Output 10/02/18 10/02/18 10/03/18 1515:00 23:00 07:00 IntakeIntake Total 480 ml 480 ml BalanceBalance 480 ml 480 ml Exam Constitutional: alert, oriented Psych: no complaints, nl mood/affect Head: normocephalic, atraumatic Neck: No jvd Respiratory: diminished breath sounds; No clear to auscultation Cardiovascular: regular rate and rhythm; No edema Gastrointestinal: soft, non-tender; No distended Neurological: nl mental status, nl speech Labs Result Diagram: 10/02/18 0510 10/02/18 0510 Medications Medications Current Medications IV Flush (NS 3 ml) 3 ml PER PROTOCOL IV ; Start 09/28/18 at 11:30 Ondansetron HCl (Zofran Inj) 4 mg Q6H PRN IV NAUSEA/VOMITING; Start 09/28/18 at 11:30 Acetaminophen (Tylenol Tab) 650 mg Q6H PRN PO .PAIN 1-3 OR TEMP; Start 09/28/18 at 11:30 Morphine Sulfate (morphine) 2 mg Q4H PRN IV .PAIN 7-10 Last administered on 10/03/18 06:28; Admin Dose 2 MG; Start 09/28/18 at 11:30 Enoxaparin Sodium (Lovenox) 30 mg DAILY SC Last administered on 10/03/18 09:09; Admin Dose 30 MG; Start 09/29/18 at 09:00 Petrolatum (Vaseline) 1 applic BID TOP Last administered on 10/03/18 09:08; Admin Dose 1 APPLIC; Start 09/28/18 at 15:00 Escitalopram Oxalate (Lexapro) 20 mg DAILY PO Last administered on 10/03/18 09:07; Admin Dose 20 MG; Start 09/30/18 at 09:00 Lorazepam (Ativan) 0.5 mg Q6H PRN IV ANXIETY; Start 09/29/18 at 12:30 Famotidine (Pepcid) 20 mg BID PO Last administered on 10/03/18 09:07; Admin Dose 20 MG; Start 09/29/18 at 21:00 Aspirin (Halfprin) 81 mg DAILY PO Last administered on 10/03/18 09:08; Admin Dose 81 MG; Start 09/30/18 at 09:00 Atenolol (Tenormin) 25 mg DAILY PO Last administered on 10/03/18 09:08; Admin Dose 25 MG; Start 09/30/18 at 09:00 Atorvastatin Calcium (Lipitor) 40 mg QHS PO Last administered on 10/02/18 20:08; Admin Dose 40 MG; Start 09/29/18 at 21:00 Pantoprazole (Protonix Tab) 40 mg DAILY@06 PO Last administered on 10/03/18 06:28; Admin Dose 40 MG; Start 09/30/18 at 09:00 Benazepril HCl (Lotensin) 10 mg DAILY PO Last administered on 10/02/18 09:17; Admin Dose 10 MG; Start 09/30/18 at 09:00 Lorazepam (Ativan) 0.5 mg Q6H PRN PO ANXIETY Last administered on 10/02/18 13:37; Admin Dose 0.5 MG; Start 09/29/18 at 20:00 Clonazepam (Klonopin) 1 mg BID PO Last administered on 7/5/19at 09:07; Admin Dose 1 MG; Start 09/29/18 at 21:00 Levofloxacin (Levaquin) 250 mg DAILY@06 PO Last administered on 10/03/18 06:28; Admin Dose 250 MG; Start 10/01/18 at 06:00 Magnesium Oxide (Mag-Ox 400) 400 mg BID PO Last administered on 10/03/18 09:07; Admin Dose 400 MG; Start 09/30/18 at 21:00 LARISSA SMITH Oct 03, 2018 09:54
[2018-10-03] MEDS: BENAZEPRIL 10 MG TAB PO SCH (10:46)
[2018-10-03] MEDS: LORAZEPAM 2 MG INJ IV PRN (10:47)
[2018-10-03 13:57] VITALS: BP 113/57; PULSE 58; RESP 20
--- NOTE | 2018-10-03 18:48 | CONS ---
Assessment/Plan Assessment/Plan Hospital Course (Demo Recall) ID PROGRESS NOTE CURRENT ABX: DAY # 5.5 =>Levaquin 24H INTERVAL SUMMARY * Awake, ambulatory with unsteady gait, sitter in room * Pleasant, Smiling, wants to know "why am I being overmedicated." * Afebrile, VSS, NAD -- without dyspnea on room air DIAGNOSTIC IMAGING * 09/28/18 CXR: IMPRESSION:Findings concerning for left lower lobe aspiration or pneumonia.Mild central venous congestion.Probable hiatal hernia. Calcified atherosclerosis of the thoracic aorta. MICRO * 09/29/18 BLOOD CULTURE Preliminary BCULT GRAM BOTTLE 1 Gram positive cocci in clusters 1 of 1 bottle . seen on gram stain of the broth Organism 1 STAPHYLOCOCCUS SPECIES PHYSICAL EXAMINATION: GENERAL: VSS, NAD HEENT: AT, NC, NECK: Supple, CHEST: Rise symmetrical HEART: Pulse RRR ABDOMEN: Soft EXTREMITIES: Warm, dry SKIN: No rash, no diaphoresis ID ASSESSMENT 73 yo F admit with: 1. SIRS w/Leukocytosis on admission 09/28/18 * 09/29/18 (+)BCx 1/2 bottles STAPHYLOCOCCUS SPECIES == ? skin contaminant ? 2. Community-acquired PNA vs ASP PNA * Risk factors for ASP PNA = Moderate size hiatal hernia + dementia 3. Non-ST elevation [place] 4. UTI = E.Coli ESBL 5. Hypertension 6. History of multiple falls 7. Mild dementia - CT Brain: Atrophy. White matter disease compatible with chronic small vessel ischemia. ABX ALLERGIES: PCN INVASIVES: PIV CURRENT ABX: DAY #5.5 =>Levaquin ID RECOMMENDATIONS/PLAN: 1. She does not appear septic, no clinical indicators for sepsis * Possible skin contaminated blood cx -- awaiting final micro 2. ASP Precautions. 3. Anticipate 7 days total of Levaquin for PNA . Consultation Date/Type/Reason Admit Date/Time Sep 28, 2018 at 10:43 Initial Consult Date 09/30/18 Requesting Provider: NUZHAT ROSENTHAL Date/Time of Note DATE: 10/03/18 TIME: 18:44 Exam/Review of Systems Exam Vitals Vital Signs Date Temp Pulse Resp B/P (MAP) Pulse Ox O2 O2 Flow FiO2 Time Delivery Rate 10/03/18 97.9 58 20 113/57 92 13:57 (75) 10/02/18 Room Air 18:36 10/02/18 2.0 08:02 09/29/18 27 12:46 Intake and Output 10/02/18 10/02/18 10/03/18 1515:00 23:00 07:00 IntakeIntake Total 480 ml 480 ml BalanceBalance 480 ml 480 ml Results Result Diagram: 10/02/18 0510 10/02/18 0510 Medications Medication Current Medications IV Flush (NS 3 ml) 3 ml PER PROTOCOL IV ; Start 09/28/18 at 11:30 Ondansetron HCl (Zofran Inj) 4 mg Q6H PRN IV NAUSEA/VOMITING; Start 09/28/18 at 11:30 Acetaminophen (Tylenol Tab) 650 mg Q6H PRN PO .PAIN 1-3 OR TEMP; Start 09/28/18 at 11:30 Morphine Sulfate (morphine) 2 mg Q4H PRN IV .PAIN 7-10 Last administered on 10/03/18 18:16; Admin Dose 2 MG; Start 09/28/18 at 11:30 Enoxaparin Sodium (Lovenox) 30 mg DAILY SC Last administered on 10/03/18 09:09; Admin Dose 30 MG; Start 09/29/18 at 09:00 Petrolatum (Vaseline) 1 applic BID TOP Last administered on 10/03/18 09:08; Admin Dose 1 APPLIC; Start 09/28/18 at 15:00 Escitalopram Oxalate (Lexapro) 20 mg DAILY PO Last administered on 10/03/18 09:07; Admin Dose 20 MG; Start 09/30/18 at 09:00 Lorazepam (Ativan) 0.5 mg Q6H PRN IV ANXIETY Last administered on 10/03/18 10:47; Admin Dose 0.5 MG; Start 09/29/18 at 12:30 Famotidine (Pepcid) 20 mg BID PO Last administered on 10/03/18 09:07; Admin Dose 20 MG; Start 09/29/18 at 21:00 Aspirin (Halfprin) 81 mg DAILY PO Last administered on 10/03/18 09:08; Admin Dose 81 MG; Start 09/30/18 at 09:00 Atenolol (Tenormin) 25 mg DAILY PO Last administered on 10/03/18 09:08; Admin Dose 25 MG; Start 09/30/18 at 09:00 Atorvastatin Calcium (Lipitor) 40 mg QHS PO Last administered on 10/02/18 20:08; Admin Dose 40 MG; Start 09/29/18 at 21:00 Pantoprazole (Protonix Tab) 40 mg DAILY@06 PO Last administered on 10/03/18 06:28; Admin Dose 40 MG; Start 09/30/18 at 09:00 Benazepril HCl (Lotensin) 10 mg DAILY PO Last administered on 10/03/18 10:46; Admin Dose 10 MG; Start 09/30/18 at 09:00 Lorazepam (Ativan) 0.5 mg Q6H PRN PO ANXIETY Last administered on 10/02/18 13:37; Admin Dose 0.5 MG; Start 09/29/18 at 20:00 Clonazepam (Klonopin) 1 mg BID PO Last administered on 10/03/18 09:07; Admin Dose 1 MG; Start 09/29/18 at 21:00 Levofloxacin (Levaquin) 250 mg DAILY@06 PO Last administered on 10/03/18 06:28; Admin Dose 250 MG; Start 10/01/18 at 06:00 Magnesium Oxide (Mag-Ox 400) 400 mg BID PO Last administered on 10/03/18 09:07; Admin Dose 400 MG; Start 09/30/18 at 21:00 ARUN CORDOBA NP Oct 03, 2018 18:48
[2018-10-03 19:20] VITALS: BP 125/52; PULSE 62; RESP 19
[2018-10-03] MEDS: ATORVASTATIN 40 MG TAB PO SCH (20:41)
[2018-10-04 02:00] VITALS: BP 128/61; PULSE 66; RESP 18
[2018-10-04] MEDS: PANTOPRAZOLE (EC) 40 MG TAB PO SCH (06:18)
[2018-10-04] MEDS: LEVOFLOXACIN 250 MG TAB PO SCH (06:19)
[2018-10-04] MEDS: morphine 2 MG INJ IV PRN (07:45)
[2018-10-04] MEDS: BALSAM PERU/CASTOR OIL 60 GM TUBE TOP SCH ×2 (08:08→20:06)
[2018-10-04] MEDS: clonAZEPAM 0.5 MG TAB PO SCH ×2 (08:08→20:06)
[2018-10-04] MEDS: MAGNESIUM OXIDE 400 MG TAB PO SCH ×2 (08:08→20:06)
[2018-10-04] MEDS: PETROLATUM 5 GM OINT TOP SCH ×2 (08:08→20:06)
[2018-10-04] MEDS: ASPIRIN (EC) 81 MG TAB PO SCH (08:08)
[2018-10-04] MEDS: FAMOTIDINE 20 MG TAB PO SCH ×2 (08:08→20:06)
[2018-10-04] MEDS: ESCITALOPRAM 10 MG TAB PO SCH (08:08)
[2018-10-04 08:10] VITALS: BP 129/56; PULSE 63; RESP 18
[2018-10-04] MEDS: ATENOLOL 25 MG TAB PO SCH (08:10)
[2018-10-04] MEDS: BENAZEPRIL 10 MG TAB PO SCH (08:10)
[2018-10-04] MEDS: ENOXAPARIN 30 MG/0.3 ML SYG SC SCH (08:11)
[2018-10-04] MEDS: morphine 4 MG/ML VIAL IV PRN (11:36)
[2018-10-04] MEDS ORDERED: LEVO250T9 PO (13:02)
--- NOTE | 2018-10-04 13:04 | PN ---
Date/Time of Note Date/Time of Note DATE: 10/04/18 TIME: 13:03 Assessment/Plan VTE Prophylaxis Risk score (from Ns)>0 risk: 4 SCD applied (from [facility] [place]): No SCD contraindicated: other Pharmacological prophylaxis: other Pharm contraindication: other Lines/Catheters IV C[facility] Type (from [facility] Peripheral IV Urinary Cath still in place: No Assessment/Plan Assessment/Plan -Community acquired pneumonia, continue Levaquin, breathing treatment, oxygen supplementation. Dr. Andrade is following in infection disease consultation. -Aspiration pneumonitis -Closed fracture of left zygomatic arch -Dehydration, moderate -UTI per UA -Sepsis secondary to pneumonia and urinary tract infection. -NSTEMI (non-ST elevated myocardial infarction). Continue aspirin, atenolol. Nitroglycerin PRN for pain. Dr. Brizuela is following in cardiology consulta tion. -Coronary artery disease, hx of percutaneous coronary intervention. -Chronic obstructive pulmonary disease possibly exacerbation. -Hypertension. Continue benazepril. 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 Status post evaluation in psychiatric consultation by MINISTERIO Onmusa. Continue Lexapro and Abilify. -Chronic pain syndrome with the history of a fibromyalgia. Patient follow-ups with the pain management doctor as an outpatient. -Hx of multiple falls. Further recommendations based on clinical course. Plan of care was discussed with Dr. Hannon. Result Diagram: 10/04/18 0441 10/04/18 0441 Results 24hrs Laboratory Tests Test 10/04/18 04:41 White Blood Count 9.8 Red Blood Count 4.18 L Hemoglobin 10.3 L Hematocrit 34.3 L Mean Corpuscular Volume 82.1 Mean Corpuscular Hemoglobin 24.6 L Mean Corpuscular Hemoglobin Concent 30.0 L Red Cell Distribution Width 19.1 H Platelet Count 407 Mean Platelet Volume 9.8 Immature Granulocytes % 0.400 Neutrophils % 66.7 Lymphocytes % 18.4 Monocytes % 8.8 Eosinophils % 5.2 Basophils % 0.5 Nucleated Red Blood Cells % 0.0 Immature Granulocytes # 0.040 H Neutrophils # 6.5 Lymphocytes # 1.8 Monocytes # 0.9 Eosinophils # 0.5 Basophils # 0.1 Nucleated Red Blood Cells # 0.0 Sodium Level 142 Potassium Level 3.8 Chloride Level 106 Carbon Dioxide Level 32 H Anion Gap 4 L Blood Urea Nitrogen 16 Creatinine 0.65 Est Glomerular Filtrat Rate mL/min Glucose Level 97 Calcium Level 7.8 L Subjective 24 Hr Interval Summary Free Text/Dictation 07/05/2018- ENTRY NAD Afebrile no new events reported wants to go home dw staff Constitutional: no complaints, improved Eyes: no complaints ENT: no complaints Respiratory: no complaints Cardiovascular: no complaints Gastrointestinal: no complaints Genitourinary: no complaints Musculoskeletal: no complaints Skin: no complaints Neurologic: no complaints Endocrine: no complaints Lymphatic: no complaints Psychological: no complaints, nl mood/affect Immunologic: no complaints Exam/Review of Systems Exam Vitals Vital Signs Date Temp Pulse Resp B/P (MAP) Pulse Ox O2 O2 Flow FiO2 Time Delivery Rate 10/04/18 98.2 63 18 129/56 98 08:10 (80) 10/02/18 Room Air 18:36 10/02/18 2.0 08:02 Intake and Output 10/03/18 10/03/18 10/04/18 1414:59 22:59 06:59 IntakeIntake Total 640 ml 200 ml BalanceBalance 640 ml 200 ml Constitutional: alert, well developed Psych: nl mood/affect Eyes: nl lids, nl sclera ENMT: nl external ears & nose Neck: non-tender Respiratory: clear to auscultation Cardiovascular: nl pulses, other (s1s2) Gastrointestinal: soft, non-tender Musculoskeletal: muscle weakness Extremities: normal pulses Neurological: nl speech, other (alert, reponsive, forgetful) Results Results 24hrs Laboratory Tests Test 10/04/18 04:41 White Blood Count 9.8 Red Blood Count 4.18 L Hemoglobin 10.3 L Hematocrit 34.3 L Mean Corpuscular Volume 82.1 Mean Corpuscular Hemoglobin 24.6 L Mean Corpuscular Hemoglobin Concent 30.0 L Red Cell Distribution Width 19.1 H Platelet Count 407 Mean Platelet Volume 9.8 Immature Granulocytes % 0.400 Neutrophils % 66.7 Lymphocytes % 18.4 Monocytes % 8.8 Eosinophils % 5.2 Basophils % 0.5 Nucleated Red Blood Cells % 0.0 Immature Granulocytes # 0.040 H Neutrophils # 6.5 Lymphocytes # 1.8 Monocytes # 0.9 Eosinophils # 0.5 Basophils # 0.1 Nucleated Red Blood Cells # 0.0 Sodium Level 142 Potassium Level 3.8 Chloride Level 106 Carbon Dioxide Level 32 H Anion Gap 4 L Blood Urea Nitrogen 16 Creatinine 0.65 Est Glomerular Filtrat Rate mL/min Glucose Level 97 Calcium Level 7.8 L Medications Medication Current Medications IV Flush (NS 3 ml) 3 ml PER PROTOCOL IV ; Start 09/28/18 at 11:30 Ondansetron HCl (Zofran Inj) 4 mg Q6H PRN IV NAUSEA/VOMITING; Start 09/28/18 at 11:30 Acetaminophen (Tylenol Tab) 650 mg Q6H PRN PO .PAIN 1-3 OR TEMP; Start 09/28/18 at 11:30 Enoxaparin Sodium (Lovenox) 30 mg DAILY SC Last administered on 10/04/18 08:11; Admin Dose 30 MG; Start 09/29/18 at 09:00 Petrolatum (Vaseline) 1 applic BID TOP Last administered on 10/04/18 08:08; Admin Dose 1 APPLIC; Start 09/28/18 at 15:00 Escitalopram Oxalate (Lexapro) 20 mg DAILY PO Last administered on 10/04/18 08:08; Admin Dose 20 MG; Start 09/30/18 at 09:00 Lorazepam (Ativan) 0.5 mg Q6H PRN IV ANXIETY Last administered on 10/03/18 10:47; Admin Dose 0.5 MG; Start 09/29/18 at 12:30 Famotidine (Pepcid) 20 mg BID PO Last administered on 10/04/18 08:08; Admin Dose 20 MG; Start 09/29/18 at 21:00 Aspirin (Halfprin) 81 mg DAILY PO Last administered on 10/04/18 08:08; Admin Dose 81 MG; Start 09/30/18 at 09:00 Atenolol (Tenormin) 25 mg DAILY PO Last administered on 10/04/18 08:10; Admin Dose 25 MG; Start 09/30/18 at 09:00 Atorvastatin Calcium (Lipitor) 40 mg QHS PO Last administered on 10/03/18 20:41; Admin Dose 40 MG; Start 09/29/18 at 21:00 Pantoprazole (Protonix Tab) 40 mg DAILY@06 PO Last administered on 10/04/18 06:18; Admin Dose 40 MG; Start 09/30/18 at 09:00 Benazepril HCl (Lotensin) 10 mg DAILY PO Last administered on 10/04/18 08:10; Admin Dose 10 MG; Start 09/30/18 at 09:00 Lorazepam (Ativan) 0.5 mg Q6H PRN PO ANXIETY Last administered on 10/02/18 13:37; Admin Dose 0.5 MG; Start 09/29/18 at 20:00 Clonazepam (Klonopin) 1 mg BID PO Last administered on 10/04/18 08:08; Admin Dose 1 MG; Start 09/29/18 at 21:00 Levofloxacin (Levaquin) 250 mg DAILY@06 PO Last administered on 10/04/18 06:19; Admin Dose 250 MG; Start 10/01/18 at 06:00 Magnesium Oxide (Mag-Ox 400) 400 mg BID PO Last administered on 10/04/18 08:08; Admin Dose 400 MG; Start 09/30/18 at 21:00 Morphine Sulfate (morphine) 3 mg Q4H PRN IV .PAIN 7-10 Last administered on 10/04/18 11:36; Admin Dose 3 MG; Start 10/04/18 at 10:30 CHRISTINA DIAZ Oct 04, 2018 13:04
--- NOTE | 2018-10-04 13:14 | PN ---
Date/Time of Note Date/Time of Note DATE: 10/04/18 TIME: 13:11 Assessment/Plan VTE Prophylaxis Risk score (from Ns)>0 risk: 4 SCD applied (from [facility]): No SCD contraindicated: other Pharmacological prophylaxis: other Pharm contraindication: other Lines/Catheters IV Catheter Type (from [facility]): Peripheral IV Urinary Cath still in place: No Assessment/Plan Assessment/Plan - Left ankle pain/swelling- will get foot XRAY- fu results -Community acquired pneumonia, continue Levaquin, breathing treatment, oxygen supplementation. Dr. Andrade is following in infection disease consultation. -Aspiration pneumonitis -Closed fracture of left zygomatic arch -Dehydration, moderate -UTI per UA -Sepsis secondary to pneumonia and urinary tract infection. -NSTEMI (non-ST elevated myocardial infarction). Continue aspirin, atenolol. Nitroglycerin PRN for pain. Dr. Brizuela is following in cardiology consultation. -Coronary artery disease, hx of percutaneous coronary intervention. -Chronic obstructive pulmonary disease possibly exacerbation. -Hypertension. Continue benazepril. 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 Status post evaluation in psychiatric consultation by DNP Onyek. Continue Lexapro and Abilify. -Chronic pain syndrome with the history of a fibromyalgia. Patient follow-ups with the pain management doctor as an outpatient. -Hx of multiple falls. Further recommendations based on clinical course. Plan of care was discussed with Dr. Hannon. Result Diagram: 10/04/18 0441 10/04/18 0441 Results 24hrs Laboratory Tests Test 10/04/18 04:41 White Blood Count 9.8 Red Blood Count 4.18 L Hemoglobin 10.3 L Hematocrit 34.3 L Mean Corpuscular Volume 82.1 Mean Corpuscular Hemoglobin 24.6 L Mean Corpuscular Hemoglobin Concent 30.0 L Red Cell Distribution Width 19.1 H Platelet Count 407 Mean Platelet Volume 9.8 Immature Granulocytes % 0.400 Neutrophils % 66.7 Lymphocytes % 18.4 Monocytes % 8.8 Eosinophils % 5.2 Basophils % 0.5 Nucleated Red Blood Cells % 0.0 Immature Granulocytes # 0.040 H Neutrophils # 6.5 Lymphocytes # 1.8 Monocytes # 0.9 Eosinophils # 0.5 Basophils # 0.1 Nucleated Red Blood Cells # 0.0 Sodium Level 142 Potassium Level 3.8 Chloride Level 106 Carbon Dioxide Level 32 H Anion Gap 4 L Blood Urea Nitrogen 16 Creatinine 0.65 Est Glomerular Filtrat Rate mL/min Glucose Level 97 Calcium Level 7.8 L Subjective 24 Hr Interval Summary Free Text/Dictation NAD Afebrile c/o left ankle pain ; will get a Xray- fu wants to go home dw staff ENT: no complaints Respiratory: no complaints Cardiovascular: no complaints Gastrointestinal: no complaints Genitourinary: no complaints Musculoskeletal: bone/joint pain, restricted range of motion Skin: no complaints Neurologic: no complaints Endocrine: no complaints Lymphatic: no complaints Psychological: nl mood/affect Immunologic: no complaints Exam/Review of Systems Exam Vitals Vital Signs Date Temp Pulse Resp B/P (MAP) Pulse Ox O2 O2 Flow FiO2 Time Delivery Rate 10/04/18 98.2 63 18 129/56 98 08:10 (80) 10/02/18 Room Air 18:36 10/02/18 2.0 08:02 Intake and Output 10/03/18 10/03/18 10/04/18 1414:59 22:59 06:59 IntakeIntake Total 640 ml 200 ml BalanceBalance 640 ml 200 ml Constitutional: alert, well developed Psych: nl mood/affect Eyes: nl lids, nl sclera ENMT: nl external ears & nose Respiratory: clear to auscultation Cardiovascular: nl pulses Gastrointestinal: soft, non-tender Musculoskeletal: joint tenderness, range of motion Extremities: edema Neurological: nl speech, other (forgetful) Lymph: nontender Results Results 24hrs Laboratory Tests Test 10/04/18 04:41 White Blood Count 9.8 Red Blood Count 4.18 L Hemoglobin 10.3 L Hematocrit 34.3 L Mean Corpuscular Volume 82.1 Mean Corpuscular Hemoglobin 24.6 L Mean Corpuscular Hemoglobin Concent 30.0 L Red Cell Distribution Width 19.1 H Platelet Count 407 Mean Platelet Volume 9.8 Immature Granulocytes % 0.400 Neutrophils % 66.7 Lymphocytes % 18.4 Monocytes % 8.8 Eosinophils % 5.2 Basophils % 0.5 Nucleated Red Blood Cells % 0.0 Immature Granulocytes # 0.040 H Neutrophils # 6.5 Lymphocytes # 1.8 Monocytes # 0.9 Eosinophils # 0.5 Basophils # 0.1 Nucleated Red Blood Cells # 0.0 Sodium Level 142 Potassium Level 3.8 Chloride Level 106 Carbon Dioxide Level 32 H Anion Gap 4 L Blood Urea Nitrogen 16 Creatinine 0.65 Est Glomerular Filtrat Rate mL/min Glucose Level 97 Calcium Level 7.8 L Medications Medication Current Medications IV Flush (NS 3 ml) 3 ml PER PROTOCOL IV ; Start 09/28/18 at 11:30 Ondansetron HCl (Zofran Inj) 4 mg Q6H PRN IV NAUSEA/VOMITING; Start 09/28/18 at 11:30 Acetaminophen (Tylenol Tab) 650 mg Q6H PRN PO .PAIN 1-3 OR TEMP; Start 09/28/18 at 11:30 Enoxaparin Sodium (Lovenox) 30 mg DAILY SC Last administered on 10/04/18 08:11; Admin Dose 30 MG; Start 09/29/18 at 09:00 Petrolatum (Vaseline) 1 applic BID TOP Last administered on 10/04/18 08:08; Admin Dose 1 APPLIC; Start 09/28/18 at 15:00 Escitalopram Oxalate (Lexapro) 20 mg DAILY PO Last administered on 10/04/18 08:08; Admin Dose 20 MG; Start 09/30/18 at 09:00 Lorazepam (Ativan) 0.5 mg Q6H PRN IV ANXIETY Last administered on 10/03/18 10:47; Admin Dose 0.5 MG; Start 09/29/18 at 12:30 Famotidine (Pepcid) 20 mg BID PO Last administered on 10/04/18 08:08; Admin Dose 20 MG; Start 09/29/18 at 21:00 Aspirin (Halfprin) 81 mg DAILY PO Last administered on 10/04/18 08:08; Admin Dose 81 MG; Start 09/30/18 at 09:00 Atenolol (Tenormin) 25 mg DAILY PO Last administered on 10/04/18 08:10; Admin Dose 25 MG; Start 09/30/18 at 09:00 Atorvastatin Calcium (Lipitor) 40 mg QHS PO Last administered on 10/03/18 20:41; Admin Dose 40 MG; Start 09/29/18 at 21:00 Pantoprazole (Protonix Tab) 40 mg DAILY@06 PO Last administered on 10/04/18 06:18; Admin Dose 40 MG; Start 09/30/18 at 09:00 Benazepril HCl (Lotensin) 10 mg DAILY PO Last administered on 10/04/18 08:10; Admin Dose 10 MG; Start 09/30/18 at 09:00 Lorazepam (Ativan) 0.5 mg Q6H PRN PO ANXIETY Last administered on 10/02/18 13: 37; Admin Dose 0.5 MG; Start 09/29/18 at 20:00 Clonazepam (Klonopin) 1 mg BID PO Last administered on 10/04/18 08:08; Admin Dose 1 MG; Start 09/29/18 at 21:00 Levofloxacin (Levaquin) 250 mg DAILY@06 PO Last administered on 10/04/18 06:19; Admin Dose 250 MG; Start 10/01/18 at 06:00 Magnesium Oxide (Mag-Ox 400) 400 mg BID PO Last administered on 10/04/18 08:08; Admin Dose 400 MG; Start 09/30/18 at 21:00 Morphine Sulfate (morphine) 3 mg Q4H PRN IV .PAIN 7-10 Last administered on 10/04/18 11:36; Admin Dose 3 MG; Start 10/04/18 at 10:30 CHRISTINA DIAZ Oct 04, 2018 13:14
[2018-10-04 14:07] VITALS: BP 117/49; PULSE 88; RESP 18
[2018-10-04 20:00] VITALS: BP 130/54; PULSE 58; RESP 18
[2018-10-04] MEDS: ATORVASTATIN 40 MG TAB PO SCH (20:06)
--- NOTE | 2018-10-04 20:20 | CONS ---
Assessment/Plan Assessment/Plan Hospital Course (Demo Recall) ID PROGRESS NOTE CURRENT ABX: DAY # 6.5 =>Levaquin 24H INTERVAL SUMMARY * Currently napping in bed -- XR shows healing ankle Fx with moderate ankle soft tissue edema * Acute/chronic pain issues w/pain meds onboard * Afebrile, VSS, NAD -- without dyspnea on room air DIAGNOSTIC IMAGING * 10/04/18 ANKLE XR: 1. Healing nondisplaced lateral malleolar fracture.2. Mild tibiotalar osteoarthritis.3. Unchanged innumerable radiopaque foreign bodies through the calcaneus and plantar aspect of the foot.4. Moderate ankle soft tissue swelling. * 09/28/18 CXR: IMPRESSION:Findings concerning for left lower lobe aspiration or pneumonia.Mild central venous congestion.Probable hiatal hernia. Calcified atherosclerosis of the thoracic aorta. MICRO * 09/29/18 BLOOD CULTURE Preliminary BCULT GRAM BOTTLE 1 Gram positive cocci in clusters 1 of 1 bottle . seen on gram stain of the broth Organism 1 STAPHYLOCOCCUS SPECIES PHYSICAL EXAMINATION: GENERAL: VSS, NAD HEENT: AT, NC, NECK: Supple, CHEST: Rise symmetrical HEART: Pulse RRR ABDOMEN: Soft EXTREMITIES: Warm, dry SKIN: No rash, no diaphoresis ID ASSESSMENT 73 yo F admit with: 1. SIRS w/Leukocytosis on admission 09/28/18 * 09/29/18 (+)BCx 1/2 bottles STAPHYLOCOCCUS SPECIES == ? skin contaminant ? 2. Community-acquired PNA vs ASP PNA * Risk factors for ASP PNA = Moderate size hiatal hernia + dementia 3. Non-ST elevation MS 4. UTI = E.Coli ESBL 5. Hypertension 6. History of multiple falls w/unsteady gait 7. ANKLE PAIN w/10/04/18 ANKLE XR: 1. Healing nondisplaced lateral malleolar fracture.2. Mild tibiotalar osteoarthritis.3. Unchanged innumerable radiopaque foreign bodies through the calcaneus and plantar aspect of the foot.4. Moderate ankle soft tissue swelling. 8. Mild dementia - CT Brain: Atrophy. White matter disease compatible with chronic small vessel ischemia. ABX ALLERGIES: PCN INVASIVES: PIV CURRENT ABX: DAY #6.5 =>Levaquin ID RECOMMENDATIONS/PLAN: 1. She does not appear septic, no clinical indicators for sepsis * Repeat CXR in AM 2. ASP Precautions. 3. Anticipate 7 days total of Levaquin for PNA . Consultation Date/Type/Reason Admit Date/Time Sep 28, 2018 at 10:43 Initial Consult Date 09/30/18 Requesting Provider: NUZHAT ROSENTHAL Date/Time of Note DATE: 10/04/18 TIME: 20:16 Exam/Review of Systems Exam Vitals Vital Signs Date Temp Pulse Resp B/P (MAP) Pulse Ox O2 O2 Flow FiO2 Time Delivery Rate 10/04/18 98.3 88 18 117/49 95 14:07 (71) 10/02/18 Room Air 18:36 10/02/18 2.0 08:02 Intake and Output 10/03/18 10/03/18 10/04/18 1515:00 23:00 07:00 IntakeIntake Total 640 ml 200 ml BalanceBalance 640 ml 200 ml Results Result Diagram: 10/04/18 0441 10/04/18 0441 Results 24hrs Laboratory Tests Test 10/04/18 04:41 White Blood Count 9.8 Red Blood Count 4.18 L Hemoglobin 10.3 L Hematocrit 34.3 L Mean Corpuscular Volume 82.1 Mean Corpuscular Hemoglobin 24.6 L Mean Corpuscular Hemoglobin Concent 30.0 L Red Cell Distribution Width 19.1 H Platelet Count 407 Mean Platelet Volume 9.8 Immature Granulocytes % 0.400 Neutrophils % 66.7 Lymphocytes % 18.4 Monocytes % 8.8 Eosinophils % 5.2 Basophils % 0.5 Nucleated Red Blood Cells % 0.0 Immature Granulocytes # 0.040 H Neutrophils # 6.5 Lymphocytes # 1.8 Monocytes # 0.9 Eosinophils # 0.5 Basophils # 0.1 Nucleated Red Blood Cells # 0.0 Sodium Level 142 Potassium Level 3.8 Chloride Level 106 Carbon Dioxide Level 32 H Anion Gap 4 L Blood Urea Nitrogen 16 Creatinine 0.65 Est Glomerular Filtrat Rate mL/min Glucose Level 97 Calcium Level 7.8 L Medications Medication Current Medications IV Flush (NS 3 ml) 3 ml PER PROTOCOL IV ; Start 09/28/18 at 11:30 Ondansetron HCl (Zofran Inj) 4 mg Q6H PRN IV NAUSEA/VOMITING; Start 09/28/18 at 11:30 Acetaminophen (Tylenol Tab) 650 mg Q6H PRN PO .PAIN 1-3 OR TEMP; Start 09/28/18 at 11:30 Enoxaparin Sodium (Lovenox) 30 mg DAILY SC Last administered on 10/04/18 08:11; Admin Dose 30 MG; Start 09/29/18 at 09:00 Petrolatum (Vaseline) 1 applic BID TOP Last administered on 10/04/18 20:06; Admin Dose 1 APPLIC; Start 09/28/18 at 15:00 Escitalopram Oxalate (Lexapro) 20 mg DAILY PO Last administered on 10/04/18 08:08; Admin Dose 20 MG; Start 09/30/18 at 09:00 Lorazepam (Ativan) 0.5 mg Q6H PRN IV ANXIETY Last administered on 10/03/18 10:47; Admin Dose 0.5 MG; Start 09/29/18 at 12:30 Famotidine (Pepcid) 20 mg BID PO Last administered on 10/04/18 20:06; Admin Dose 20 MG; Start 09/29/18 at 21:00 Aspirin (Halfprin) 81 mg DAILY PO Last administered on 10/04/18 08:08; Admin Dose 81 MG; Start 09/30/18 at 09:00 Atenolol (Tenormin) 25 mg DAILY PO Last administered on 10/04/18 08:10; Admin Dose 25 MG; Start 09/30/18 at 09:00 Atorvastatin Calcium (Lipitor) 40 mg QHS PO Last administered on 10/04/18 20:06; Admin Dose 40 MG; Start 09/29/18 at 21:00 Pantoprazole (Protonix Tab) 40 mg DAILY@06 PO Last administered on 10/04/18 06:18; Admin Dose 40 MG; Start 09/30/18 at 09:00 Benazepril HCl (Lotensin) 10 mg DAILY PO Last administered on 10/04/18 08:10; Admin Dose 10 MG; Start 09/30/18 at 09:00 Lorazepam (Ativan) 0.5 mg Q6H PRN PO ANXIETY Last administered on 10/02/18 13:37; Admin Dose 0.5 MG; Start 09/29/18 at 20:00 Clonazepam (Klonopin) 1 mg BID PO Last administered on 10/04/18 20:06; Admin Dose 1 MG; Start 09/29/18 at 21:00 Levofloxacin (Levaquin) 250 mg DAILY@06 PO Last administered on 10/04/18at 06:19; Admin Dose 250 MG; Start 10/01/18 at 06:00 Magnesium Oxide (Mag-Ox 400) 400 mg BID PO Last administered on 10/04/18at 20:06; Admin Dose 400 MG; Start 09/30/18 at 21:00 Morphine Sulfate (morphine) 3 mg Q4H PRN IV .PAIN 7-10 Last administered on 10/04/18at 11:36; Admin Dose 3 MG; Start 10/04/18 at 10:30 ARUN CORDOBA NP Oct 04, 2018 20:20
[2018-10-04] MEDS: LORAZEPAM 0.5 MG TAB PO PRN (21:19)
[2018-10-05 02:00] VITALS: BP 137/51; PULSE 68; RESP 19
[2018-10-05] MEDS: morphine 4 MG/ML VIAL IV PRN (02:32)
[2018-10-05] MEDS: PANTOPRAZOLE (EC) 40 MG TAB PO SCH (06:21)
[2018-10-05] MEDS: LEVOFLOXACIN 250 MG TAB PO SCH (06:21)
[2018-10-05 07:29] VITALS: BP 125/59; PULSE 57; RESP 18
[2018-10-05] MEDS: MAGNESIUM OXIDE 400 MG TAB PO SCH ×2 (08:43→20:29)
[2018-10-05] MEDS: clonAZEPAM 0.5 MG TAB PO SCH ×2 (08:43→20:29)
[2018-10-05] MEDS: ESCITALOPRAM 10 MG TAB PO SCH (08:43)
[2018-10-05] MEDS: FAMOTIDINE 20 MG TAB PO SCH ×2 (08:44→20:29)
[2018-10-05] MEDS: BENAZEPRIL 10 MG TAB PO SCH (08:44)
[2018-10-05] MEDS: ATENOLOL 25 MG TAB PO SCH (08:44)
[2018-10-05] MEDS: PETROLATUM 5 GM OINT TOP SCH ×2 (08:44→21:32)
[2018-10-05] MEDS: ASPIRIN (EC) 81 MG TAB PO SCH (08:44)
[2018-10-05] MEDS: BALSAM PERU/CASTOR OIL 60 GM TUBE TOP SCH ×2 (08:47→20:30)
[2018-10-05] MEDS: ENOXAPARIN 30 MG/0.3 ML SYG SC SCH (08:47)
[2018-10-05] MEDS: ACETAMINOPHEN 325 MG TAB PO PRN ×2 (09:16→23:02)
--- NOTE | 2018-10-05 13:14 | PN ---
Date/Time of Note Date/Time of Note DATE: 10/05/18 TIME: 13:02 Assessment/Plan VTE Prophylaxis Risk score (from Ns)>0 risk: 2 SCD applied (from [facility]): Yes SCD contraindicated: other Pharmacological prophylaxis: other Pharm contraindication: other Lines/Catheters IV Catheter Type (from Nrsg): [place] Lock Urinary Cath still in place: No Assessment/Plan Assessment/Plan - Left ankle fracture per Xray - ortho consult- Dr Clark notified - Dr Brizuela notified for cardiac clearance for possible surgery -Community acquired pneumonia, continue Levaquin, breathing treatment, oxygen supplementation. Dr. Andrade is following in infection disease consultation. -Aspiration pneumonitis -Closed fracture of left zygomatic arch -Dehydration, moderate -UTI per UA -Sepsis secondary to pneumonia and urinary tract infection. -NSTEMI (non-ST elevated myocardial infarction). Continue aspirin, atenolol. Nitroglycerin PRN for pain. Dr. Brizuela is following in cardiology consultation. -Coronary artery disease, hx of percutaneous coronary intervention. -Chronic obstructive pulmonary disease possibly exacerbation. -Hypertension. Continue benazepril. 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 Status post evaluation in psychiatric consultation by DNP Onyeshari. Continue Lexapro and Abilify. -Chronic pain syndrome with the history of a fibromyalgia. Patient follow-ups with the pain management doctor as an outpatient. -Hx of multiple falls. Further recommendations based on clinical course. Plan of care was discussed with Dr. Hannon. Result Diagram: 10/04/18 04410/04/18 0441 Subjective 24 Hr Interval Summary Eyes: no complaints ENT: no complaints Respiratory: no complaints Cardiovascular: no complaints Gastrointestinal: no complaints Genitourinary: no complaints Musculoskeletal: bone/joint pain, restricted range of motion Skin: no complaints Exam/Review of Systems Exam Vitals Vital Signs Date Temp Pulse Resp B/P (MAP) Pulse Ox O2 O2 Flow FiO2 Time Delivery Rate 10/05/18 98.1 57 18 125/59 100 07:29 (81) 10/02/18 Room Air 18:36 10/02/18 2.0 08:02 Intake and Output 10/04/18 10/04/18 10/05/18 1515:00 23:00 07:00 IntakeIntake Total 200 ml 400 ml BalanceBalance 200 ml 400 ml Constitutional: alert, well developed Psych: nl mood/affect Eyes: nl lids, nl sclera ENMT: nl external ears & nose Neck: non-tender Respiratory: clear to auscultation Cardiovascular: nl pulses, other (s1s2) Gastrointestinal: soft Musculoskeletal: joint tenderness, range of motion Extremities: edema Neurological: nl speech Medications Medication Current Medications IV Flush (NS 3 ml) 3 ml PER PROTOCOL IV ; Start 09/28/18 at 11:30 Ondansetron HCl (Zofran Inj) 4 mg Q6H PRN IV NAUSEA/VOMITING; Start 09/28/18 at 11:30 Acetaminophen (Tylenol Tab) 650 mg Q6H PRN PO .PAIN 1-3 OR TEMP Last administered on 10/05/18 09:16; Admin Dose 650 MG; Start 09/28/18 at 11:30 Enoxaparin Sodium (Lovenox) 30 mg DAILY SC Last administered on 10/05/18 08:47; Admin Dose 30 MG; Start 09/29/18 at 09:00 Petrolatum (Vaseline) 1 applic BID TOP Last administered on 10/05/18 08:44; Admin Dose 1 APPLIC; Start 09/28/18 at 15:00 Escitalopram Oxalate (Lexapro) 20 mg DAILY PO Last administered on 10/05/18 08:43; Admin Dose 20 MG; Start 09/30/18 at 09:00 Lorazepam (Ativan) 0.5 mg Q6H PRN IV ANXIETY Last administered on 10/03/18 10:47; Admin Dose 0.5 MG; Start 09/29/18 at 12:30 Famotidine (Pepcid) 20 mg BID PO Last administered on 10/05/18 08:44; Admin Dose 20 MG; Start 09/29/18 at 21:00 Aspirin (Halfprin) 81 mg DAILY PO Last administered on 10/05/18 08:44; Admin Dose 81 MG; Start 09/30/18 at 09:00 Atenolol (Tenormin) 25 mg DAILY PO Last administered on 10/05/18 08:44; Admin Dose 25 MG; Start 09/30/18 at 09:00 Atorvastatin Calcium (Lipitor) 40 mg QHS PO Last administered on 10/04/18 20 :06; Admin Dose 40 MG; Start 09/29/18 at 21:00 Pantoprazole (Protonix Tab) 40 mg DAILY@06 PO Last administered on 10/05/18 06:21; Admin Dose 40 MG; Start 09/30/18 at 09:00 Benazepril HCl (Lotensin) 10 mg DAILY PO Last administered on 10/05/18 08:44; Admin Dose 10 MG; Start 09/30/18 at 09:00 Lorazepam (Ativan) 0.5 mg Q6H PRN PO ANXIETY Last administered on 10/04/18 21:19; Admin Dose 0.5 MG; Start 09/29/18 at 20:00 Clonazepam (Klonopin) 1 mg BID PO Last administered on 10/05/18 08:43; Admin Dose 1 MG; Start 09/29/18 at 21:00 Levofloxacin (Levaquin) 250 mg DAILY@06 PO Last administered on 10/05/18 06:21; Admin Dose 250 MG; Start 10/01/18 at 06:00 Magnesium Oxide (Mag-Ox 400) 400 mg BID PO Last administered on 10/05/18 08:43; Admin Dose 400 MG; Start 09/30/18 at 21:00 Morphine Sulfate (morphine) 3 mg Q4H PRN IV .PAIN 7-10 Last administered on 10/05/18 02:32; Admin Dose 3 MG; Start 10/04/18 at 10:30 CHRISITNA DIAZ Oct 05, 2018 13:12
[2018-10-05 13:56] VITALS: BP 127/61; PULSE 52; RESP 18
[2018-10-05] MEDS: LORAZEPAM 0.5 MG TAB PO PRN ×2 (16:06→22:20)
--- NOTE | 2018-10-05 16:31 | CONS ---
Assessment/Plan Assessment/Plan Hospital Course (Demo Recall) ID PROGRESS NOTE CURRENT ABX: TOTAL ABX # 7.5 =>Levaquin #5 24H INTERVAL SUMMARY * Awake, alert, polite, responsive -- taking POs sitter in room due to unstable gait * XR shows healing ankle Fx with moderate ankle soft tissue edema * Acute/chronic pain issues w/pain meds onboard * Afebrile, VSS, NAD -- without dyspnea on room air * Repeat CXR w/subtle right upper lobe lung infiltrates DIAGNOSTIC IMAGING * 10/05/18 CXR: 1. Cardiac silhouette appears mildly enlarged. Aortic ath erosclerosis.2. Apparent subtle right upper lung field infiltrates.3. Left mid lung field subsegmental atelectasis. 4. 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 * 10/04/18 ANKLE XR: 1. Healing nondisplaced lateral malleolar fracture.2. Mild tibiotalar osteoarthritis.3. Unchanged innumerable radiopaque foreign bodies through the calcaneus and plantar aspect of the foot.4. Moderate ankle soft tissue swelling. * 09/28/18 CXR: IMPRESSION:Findings concerning for left lower lobe aspiration or pneumonia.Mild central venous congestion.Probable hiatal hernia. Calcified atherosclerosis of the thoracic aorta. MICRO * 09/29/18 BLOOD CULTURE Preliminary BCULT GRAM BOTTLE 1 Gram positive cocci in clusters 1 of 1 bottle . seen on gram stain of the broth Organism 1 STAPHYLOCOCCUS SPECIES PHYSICAL EXAMINATION: GENERAL: VSS, NAD HEENT: AT, NC, NECK: Supple, CHEST: Rise symmetrical HEART: Pulse RRR ABDOMEN: Soft EXTREMITIES: Warm, dry SKIN: No rash, no diaphoresis ID ASSESSMENT 73 yo F admit with: 1. SIRS w/Leukocytosis on admission 09/28/18 => RESOLVED * 09/29/18 (+)BCx 1/2 bottles STAPHYLOCOCCUS SPECIES == ? skin contaminant ? 2. Community-acquired PNA vs ASP PNA * Risk factors for ASP PNA = Moderate size hiatal hernia + dementia 3. Non-ST elevation NV 4. UTI = E.Coli ESBL 5. Hypertension 6. History of multiple falls w/unsteady gait 7. ANKLE PAIN w/10/04/18 * ANKLE XR: 1. Healing nondisplaced lateral malleolar fracture.2. Mild tibiotalar osteoarthritis.3. Unchanged innumerable radiopaque foreign bodies through the calcaneus and plantar aspect of the foot.4. Moderate ankle soft tissue swelling. 8. Mild dementia - CT Brain: Atrophy. White matter disease compatible with chronic small vessel ischemia. ABX ALLERGIES: PCN INVASIVES: PIV CURRENT ABX: TOTAL ABX DAY #7.5 =>Levaquin #5 ID RECOMMENDATIONS/PLAN: 1. She does not appear septic, no clinical indicators for sepsis - CXR shows resolution of prior LLL PNA with subtle RUL infiltrate * Let's DC Levaquin and she how she does OFF ABX 2. ASP Precautions. . Consultation Date/Type/Reason Admit Date/Time Sep 28, 2018 at 10:43 Initial Consult Date 09/30/18 Requesting Provider: NUZHAT ROSENTHAL Date/Time of Note DATE: 10/05/18 TIME: 16:26 Exam/Review of Systems Exam Vitals Vital Signs Date Temp Pulse Resp B/P (MAP) Pulse Ox O2 O2 Flow FiO2 Time Delivery Rate 10/05/18 97.8 52 18 127/61 95 13:56 (83) 10/02/18 Room Air 18:36 10/02/18 2.0 08:02 Intake and Output 10/04/18 10/04/18 10/05/18 1515:00 23:00 07:00 IntakeIntake Total 200 ml 400 ml BalanceBalance 200 ml 400 ml Results Result Diagram: 10/04/1844010/04/181 Medications Medication Current Medications IV Flush (NS 3 ml) 3 ml PER PROTOCOL IV ; Start 09/28/18 at 11:30 Ondansetron HCl (Zofran Inj) 4 mg Q6H PRN IV NAUSEA/VOMITING; Start 09/28/18 at 11:30 Acetaminophen (Tylenol Tab) 650 mg Q6H PRN PO .PAIN 1-3 OR TEMP Last administe red on 10/05/18at 09:16; Admin Dose 650 MG; Start 09/28/18 at 11:30 Enoxaparin Sodium (Lovenox) 30 mg DAILY SC Last administered on 10/05/18at 08:47; Admin Dose 30 MG; Start 09/29/18 at 09:00 Petrolatum (Vaseline) 1 applic BID TOP Last administered on 10/05/18at 08:44; Admin Dose 1 APPLIC; Start 09/28/18 at 15:00 Escitalopram Oxalate (Lexapro) 20 mg DAILY PO Last administered on 10/05/18 08:43; Admin Dose 20 MG; Start 09/30/18 at 09:00 Lorazepam (Ativan) 0.5 mg Q6H PRN IV ANXIETY Last administered on 10/03/18 10:47; Admin Dose 0.5 MG; Start 09/29/18 at 12:30 Famotidine (Pepcid) 20 mg BID PO Last administered on 10/05/18 08:44; Admin Dose 20 MG; Start 09/29/18 at 21:00 Aspirin (Halfprin) 81 mg DAILY PO Last administered on 10/05/18 08:44; Admin Dose 81 MG; Start 09/30/18 at 09:00 Atenolol (Tenormin) 25 mg DAILY PO Last administered on 10/05/18 08:44; Admin Dose 25 MG; Start 09/30/18 at 09:00 Atorvastatin Calcium (Lipitor) 40 mg QHS PO Last administered on 10/04/18 20:06; Admin Dose 40 MG; Start 09/29/18 at 21:00 Pantoprazole (Protonix Tab) 40 mg DAILY@06 PO Last administered on 10/05/18 0 6:21; Admin Dose 40 MG; Start 09/30/18 at 09:00 Benazepril HCl (Lotensin) 10 mg DAILY PO Last administered on 10/05/18 08:44; Admin Dose 10 MG; Start 09/30/18 at 09:00 Lorazepam (Ativan) 0.5 mg Q6H PRN PO ANXIETY Last administered on 10/05/18 16:06; Admin Dose 0.5 MG; Start 09/29/18 at 20:00 Clonazepam (Klonopin) 1 mg BID PO Last administered on 10/05/18 08:43; Admin Dose 1 MG; Start 09/29/18 at 21:00 Levofloxacin (Levaquin) 250 mg DAILY@06 PO Last administered on 10/05/18 06:21; Admin Dose 250 MG; Start 10/01/18 at 06:00 Magnesium Oxide (Mag-Ox 400) 400 mg BID PO Last administered on 10/05/18 08:43; Admin Dose 400 MG; Start 09/30/18 at 21:00 Morphine Sulfate (morphine) 3 mg Q4H PRN IV .PAIN 7-10 Last administered on 10/05/18at 02:32; Admin Dose 3 MG; Start 10/04/18 at 10:30 ARUN CORDOBA NP Oct 05, 2018 16:31
[2018-10-05] MEDS: NICOTINE (21 MG/24 HR) PATCH TRANSDERM SCH (17:17)
--- NOTE | 2018-10-05 19:20 | CONS ---
DATE OF ADMISSION: 09/28/2018 DATE OF CONSULTATION: 10/05/2018 TYPE OF CONSULTATION: Orthopedic surgical consultation. HISTORY OF PRESENT ILLNESS: The patient is a 73-year-old female who was admitted on 09/28/2018 [facility] of pneumonia. She was found lying next to her bed by her caregiver and she was brought into the e mergency room and was found to have pneumonia at that time. She has a history of multiple medical pr oblems including fibromyalgia, COPD, hypertension, history of coronary artery disease, dyslipidemia, history of right subdural hematoma following a fall in 2014, history of multiple falls. Following her admission in the facility, she was found to have swelling involving her left ankle and she was also complaining of pain involving her left ankle, and a radiologic examination of the left a nkle revealed a fracture and orthopedic surgery was called in. On inquiring, patient relates a history of twisting injury involving her left ankle during a fall abo ut 5 to 6 weeks ago. She claims that she was seen by a doctor and was treated with the brace immobil ization. She claims that she is not wearing the brace now because she is stubborn. PHYSICAL EXAMINATION: My examination revealed residual swelling involving her left ankle, more notic eable on the lateral aspect of the left ankle. Even though there is a swelling and she is complainin g of pain, there was no acute tenderness. There were no obvious instabilities involving the left ank le. Range of motion of the left ankle was minimally limited. There were no signs of soft tissue injury at this time, and there were no signs of neurovascular comp romise. IMAGING: X-rays of the left ankle revealed a presence of a fracture involving the distal end of the lateral malleolus, which does not appear to be acute. The ankle mortise is maintained. DIAGNOSTIC IMPRESSION: Fracture involving the distal end of the lateral malleolus, healing in accept able alignment without any change in ankle mortise, probably 5 to 6 weeks old, according to the brayden anguiano. RECOMMENDATIONS FOR MANAGEMENT: If she really is suffering from pain, her left ankle can be further protected with a short leg brace that she claims that she has. She can be discharged with a short an kle brace on the left ankle from [facility]. She can be seen in about 2 to 3 weeks with repeated x- rays for her left ankle. Dictated By: SARAH COOMBS/ALEXI Conf#: [id number] DID#: [id number] CC: RUBEN LERMA MD;*EndCC*
[2018-10-05] MEDS: LORAZEPAM 2 MG INJ IV PRN (19:30)
[2018-10-05 20:00] VITALS: BP 151/63; PULSE 63; RESP 20
[2018-10-05] MEDS: ATORVASTATIN 40 MG TAB PO SCH (20:29)
[2018-10-06 02:00] VITALS: BP 134/74; RESP 16
[2018-10-06] MEDS: PANTOPRAZOLE (EC) 40 MG TAB PO SCH (05:57)
[2018-10-06 07:41] VITALS: BP 143/73; PULSE 60; RESP 18
[2018-10-06] MEDS: PETROLATUM 5 GM OINT TOP SCH ×2 (09:45→21:34)
[2018-10-06] MEDS: NICOTINE (21 MG/24 HR) PATCH TRANSDERM SCH (09:45)
[2018-10-06] MEDS: clonAZEPAM 0.5 MG TAB PO SCH ×2 (09:45→21:34)
[2018-10-06] MEDS: ESCITALOPRAM 10 MG TAB PO SCH (09:45)
[2018-10-06] MEDS: FAMOTIDINE 20 MG TAB PO SCH ×2 (09:46→21:34)
[2018-10-06] MEDS: MAGNESIUM OXIDE 400 MG TAB PO SCH ×2 (09:46→21:34)
[2018-10-06] MEDS: BENAZEPRIL 10 MG TAB PO SCH (09:46)
[2018-10-06] MEDS: ATENOLOL 25 MG TAB PO SCH (09:46)
[2018-10-06] MEDS: ASPIRIN (EC) 81 MG TAB PO SCH (09:46)
[2018-10-06] MEDS: BALSAM PERU/CASTOR OIL 60 GM TUBE TOP SCH ×2 (09:46→21:35)
[2018-10-06] MEDS: ENOXAPARIN 30 MG/0.3 ML SYG SC SCH (09:47)
[2018-10-06] MEDS: ACETAMINOPHEN 325 MG TAB PO PRN ×2 (10:59→18:39)
--- NOTE | 2018-10-06 11:12 | CONS ---
Assessment/Plan Assessment/Plan Hospital Course (Demo Recall) NSTEMI: Type II and unclear significance. Trops 0.15 x3. No symptoms. No further workup indicated in this pt PNA ?Fall Recent left ankle fracture/syncope: no plan for surgery per ortho CAD s/p remote PCI with unknown details HTN smoker dementia/psychosis frequent falls h/o SDH 2014 -Ok for d/c from cardiac perspective -continue ASA, lipitor -atenolol 25mg and benazepril 10mg -hold amlodipine for now to avoid hypotension in pt with frequent falls Consultation Date/Type/Reason Admit Date/Time Sep 28, 2018 at 10:43 Initial Consult Date 09/30/18 Type of Consult Cardiology Requesting Provider: NUZHAT ROSENTHAL Date/Time of Note DATE: 10/06/18 TIME: 11:10 24 HR Interval Summary Free Text/Dictation Asked to see pt for pre-op evaluation for possible ankle surgery Seen by ortho and no plan for surgery at this time. No complaints. Wants to go home Exam/Review of Systems Vital Signs Vitals Vital Signs Date Temp Pulse Resp B/P (MAP) Pulse Ox O2 O2 Flow FiO2 Time Delivery Rate 10/06/18 97.7 60 18 143/73 94 Room Air 07:41 (96) 10/02/18 2.0 08:02 Intake and Output 10/05/18 10/05/18 10/06/18 1515:00 23:00 07:00 IntakeIntake Total 420 ml 480 ml 600 ml BalanceBalance 420 ml 480 ml 600 ml Exam Constitutional: alert, oriented Psych: no complaints, nl mood/affect Neck: No jvd Respiratory: clear to auscultation Cardiovascular: regular rate and rhythm, edema (trace left ankle ) Gastrointestinal: soft, non-tender; No distended Neurological: nl mental status, nl speech Labs Result Diagram: 10/04/1844010/04/18440 Medications Medications Current Medications IV Flush (NS 3 ml) 3 ml PER PROTOCOL IV ; Start 09/28/18 at 11:30 Ondansetron HCl (Zofran Inj) 4 mg Q6H PRN IV NAUSEA/VOMITING; Start 09/28/18 at 11:30 Acetaminophen (Tylenol Tab) 650 mg Q6H PRN PO .PAIN 1-3 OR TEMP Last administered on 7/8/19at 10:59; Admin Dose 650 MG; Start 09/28/18 at 11:30 Enoxaparin Sodium (Lovenox) 30 mg DAILY SC Last administered on 10/06/18 09:47; Admin Dose 30 MG; Start 09/29/18 at 09:00 Petrolatum (Vaseline) 1 applic BID TOP Last administered on 10/06/18 09:45; Admin Dose 1 APPLIC; Start 09/28/18 at 15:00 Escitalopram Oxalate (Lexapro) 20 mg DAILY PO Last administered on 10/06/18 09:45; Admin Dose 20 MG; Start 09/30/18 at 09:00 Lorazepam (Ativan) 0.5 mg Q6H PRN IV ANXIETY Last administered on 10/05/18 19:30; Admin Dose 0.5 MG; Start 09/29/18 at 12:30 Famotidine (Pepcid) 20 mg BID PO Last administered on 10/06/18 09:46; Admin Dose 20 MG; Start 09/29/18 at 21:00 Aspirin (Halfprin) 81 mg DAILY PO Last administered on 10/06/18 09:46; Admin Dose 81 MG; Start 09/30/18 at 09:00 Atenolol (Tenormin) 25 mg DAILY PO Last administered on 10/06/18 09:46; Admin Dose 25 MG; Start 09/30/18 at 09:00 Atorvastatin Calcium (Lipitor) 40 mg QHS PO Last administered on 10/05/18 20:29; Admin Dose 40 MG; Start 09/29/18 at 21:00 Pantoprazole (Protonix Tab) 40 mg DAILY@06 PO Last administered on 10/06/18 05:57; Admin Dose 40 MG; Start 09/30/18 at 09:00 Benazepril HCl (Lotensin) 10 mg DAILY PO Last administered on 10/06/18 09:46; Admin Dose 10 MG; Start 09/30/18 at 09:00 Lorazepam (Ativan) 0.5 mg Q6H PRN PO ANXIETY Last administered on 10/05/18 22:20; Admin Dose 0.5 MG; Start 09/29/18 at 20:00 Clonazepam (Klonopin) 1 mg BID PO Last administered on 10/06/18 09:45; Admin Dose 1 MG; Start 09/29/18 at 21:00 Magnesium Oxide (Mag-Ox 400) 400 mg BID PO Last administered on 10/06/18 09:46; Admin Dose 400 MG; Start 09/30/18 at 21:00 Morphine Sulfate (morphine) 3 mg Q4H PRN IV .PAIN 7-10 Last administered on 10/05/18 02:32; Admin Dose 3 MG; Start 10/04/18 at 10:30 Nicotine (Nicoderm 21 Mg/ 24hr) 1 patch DAILY TRANSDERM Last administered on 10/06/18 09:45; Admin Dose 1 PATCH; Start 10/05/18 at 17:30 LARISSA SMITH Oct 06, 2018 11:12
[2018-10-06] MEDS ORDERED: BALSAM PERU/CASTOR OIL 60 GM TUBE TOP SCH (11:30)
[2018-10-06 14:00] VITALS: BP 133/63; PULSE 62; RESP 18
--- NOTE | 2018-10-06 18:18 | PN ---
Date/Time of Note Date/Time of Note DATE: 10/06/18 TIME: 18:18 Assessment/Plan VTE Prophylaxis Risk score (from Nsg)>0 risk: 2 SCD applied (from Nsg): Yes Pharmacological prophylaxis: LMWH Lines/Catheters IV Catheter Type (from Nrsg): Saline Lock Urinary Cath still in place: No Assessment/Plan Hospital Course Patient remains hemodynamically stable, afebrile, pain is adequately controlled patient denies any chest pain denies shortness of breath. Patient with unstable gait and impulsiveness, lives alone unable to take care of yourself. Pending [facility] facility placement. Assessment/Plan -Community acquired pneumonia, s/p Levaquin, breathing treatment, oxygen supplementation. Dr. Andrade is following in infection disease consultation. -Aspiration pneumonitis -Closed fracture of left zygomatic arch -Dehydration, moderate -UTI per UA -Sepsis secondary to pneumonia and urinary tract infection. -NSTEMI (non-ST elevated myocardial infarction). Continue aspirin, atenolol. Nitroglycerin PRN for pain. Dr. Brizuela is following in cardiology cons ultation. -Coronary artery disease, hx of percutaneous coronary intervention. -Chronic obstructive pulmonary disease possibly exacerbation. -Hypertension. Continue benazepril. 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 Status post evaluation in psychiatric consultation by MINISTERIO Contreras. Continue Lexapro and Abilify. -Chronic pain syndrome with the history of a fibromyalgia. Patient follow-ups with the pain management doctor as an outpatient. -Tobacco dependence, continue nicotine patch -Hx of multiple falls. Further recommendations based on clinical course. Plan of care was discussed with Dr. Hannon. Result Diagram: 10/04/1844010/04/18440 Exam/Review of Systems Exam Vitals Vital Signs Date Temp Pulse Resp B/P (MAP) Pulse Ox O2 O2 Flow FiO2 Time Delivery Rate 10/06/18 97.8 62 18 133/63 95 Room Air 14:00 (86) 10/02/18 2.0 08:02 Intake and Output 10/05/18 10/05/18 10/06/18 1515:00 23:00 07:00 IntakeIntake Total 420 ml 480 ml 600 ml BalanceBalance 420 ml 480 ml 600 ml Exam Constitutional: alert, oriented Respiratory: clear to auscultation Cardiovascular: nl pulse Gastrointestinal: non-tender Musculoskeletal: nl extremities to inspection Extremities: normal pulses Neurological: nl mental status, confused Medications Medication Current Medications IV Flush (NS 3 ml) 3 ml PER PROTOCOL IV ; Start 09/28/18 at 11:30 Ondansetron HCl (Zofran Inj) 4 mg Q6H PRN IV NAUSEA/VOMITING; Start 09/28/18 at 11:30 Acetaminophen (Tylenol Tab) 650 mg Q6H PRN PO .PAIN 1-3 OR TEMP Last administered on 10/06/18 10:59; Admin Dose 650 MG; Start 09/28/18 at 11:30 Enoxaparin Sodium (Lovenox) 30 mg DAILY SC Last administered on 10/06/18 09:47; Admin Dose 30 MG; Start 09/29/18 at 09:00 Petrolatum (Vaseline) 1 applic BID TOP Last administered on 10/06/18 09:45; Admin Dose 1 APPLIC; Start 09/28/18 at 15:00 Escitalopram Oxalate (Lexapro) 20 mg DAILY PO Last administered on 10/06/18 09:45; Admin Dose 20 MG; Start 09/30/18 at 09:00 Lorazepam (Ativan) 0.5 mg Q6H PRN IV ANXIETY Last administered on 10/05/18 19:30; Admin Dose 0.5 MG; Start 09/29/18 at 12:30 Famotidine (Pepcid) 20 mg BID PO Last administered on 10/06/18 09:46; Admin Dose 20 MG; Start 09/29/18 at 21:00 Aspirin (Halfprin) 81 mg DAILY PO Last administered on 10/06/18 09:46; Admin Dose 81 MG; Start 09/30/18 at 09:00 Atenolol (Tenormin) 25 mg DAILY PO Last administered on 10/06/18 09:46; Admin Dose 25 MG; Start 09/30/18 at 09:00 Atorvastatin Calcium (Lipitor) 40 mg QHS PO Last administered on 10/05/18 20:29; Admin Dose 40 MG; Start 09/29/18 at 21:00 Pantoprazole (Protonix Tab) 40 mg DAILY@06 PO Last administered on 10/06/18 05:57; Admin Dose 40 MG; Start 09/30/18 at 09:00 Benazepril HCl (Lotensin) 10 mg DAILY PO Last administered on 10/06/18 09:46; Admin Dose 10 MG; Start 09/30/18 at 09:00 Lorazepam (Ativan) 0.5 mg Q6H PRN PO ANXIETY Last administered on 10/05/18 22:20; Admin Dose 0.5 MG; Start 09/29/18 at 20:00 Clonazepam (Klonopin) 1 mg BID PO Last administered on 10/06/18 09:45; Admin Dose 1 MG; Start 09/29/18 at 21:00 Magnesium Oxide (Mag-Ox 400) 400 mg BID PO Last administered on 10/06/18 09:46; Admin Dose 400 MG; Start 09/30/18 at 21:00 Morphine Sulfate (morphine) 3 mg Q4H PRN IV .PAIN 7-10 Last administered on 10/05/18 02:32; Admin Dose 3 MG; Start 10/04/18 at 10:30 Nicotine (Nicoderm 21 Mg/ 24hr) 1 patch DAILY TRANSDERM Last administered on 10/06/18 09:45; Admin Dose 1 PATCH; Start 10/05/18 at 17:30 NUZHAT ROSENTHAL Oct 06, 2018 18:18
--- NOTE | 2018-10-06 20:28 | CONS ---
Assessment/Plan Assessment/Plan Hospital Course (Demo Recall) ID PROGRESS NOTE CURRENT ABX: TOTAL ABX # OFF ABX DAY #1 S/P TOTAL ABX DAYS # 8 =>Levaquin #5 24H INTERVAL SUMMARY * In bed watching TV -- no new issues --Afebrile, VSS, NAD -- without dyspnea on room air * Acute/chronic pain issues w/pain meds onboard * Repeat CXR w/subtle right upper lobe lung infiltrates== she is asymptomatic MICRO * 09/29/18 Organism 1 COAGULASE NEGATIVE STAPH COAG NEG M.I.C. RX --------- --- CEFAZOLIN S CIPROFLOXACIN >=8 R CLINDAMYCIN <=0.25 R DOXYCYCLINE S ERYTHROMYCIN >=8 R LEVOFLOXACIN >=8 R OXACILLIN <=0.25 S PENICILLIN-G >=0.5 R RIFAMPIN <=0.5 S VANCOMYCIN 1 S TRIMETHOPRIM/SULFAMETHOXAZOLE 20 S DIAGNOSTIC IMAGING * 10/05/18 CXR: 1. Cardiac silhouette appears mildly enlarged. Aortic atherosclerosis.2. Apparent subtle right upper lung field infiltrates.3. Left mid lung field subsegmental atelectasis. 4. 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 * 10/04/18 ANKLE XR: 1. Healing nondisplaced lateral malleolar fracture.2. Mild tibiotalar osteoarthritis.3. Unchanged innumerable radiopaque foreign bodies through the calcaneus and plantar aspect of the foot.4. Moderate ankle soft tissue swelling. * 09/28/18 CXR: IMPRESSION:Findings concerning for left lower lobe aspiration or pneumonia.Mild central venous congestion.Probable hiatal hernia. Calcified atherosclerosis of the thoracic aorta. PHYSICAL EXAMINATION: GENERAL: VSS, NAD HEENT: AT, NC, NECK: Supple, CHEST: Rise symmetrical HEART: Pulse RRR ABDOMEN: Soft EXTREMITIES: Warm, dry SKIN: No rash, no diaphoresis ID ASSESSMENT 73 yo F admit with: 1. SIRS w/Leukocytosis on admission 09/28/18 => RESOLVED * 09/29/18 (+)BCx 1/2 bottles STAPHYLOCOCCUS SPECIES == ? skin contaminant ? 2. Community-acquired PNA vs ASP PNA * Risk factors for ASP PNA = Moderate size hiatal hernia + dementia 3. Non-ST elevation MD 4. UTI = E.Coli ESBL 5. Hypertension 6. History of multiple falls w/unsteady gait 7. ANKLE PAIN w/10/04/18 * ANKLE XR: 1. Healing nondisplaced lateral malleolar fracture.2. Mild tibiotalar osteoarthritis.3. Unchanged innumerable radiopaque foreign bodies through the calcaneus and plantar aspect of the foot.4. Moderate ankle soft tissue swelling. 8. Mild dementia - CT Brain: Atrophy. White matter disease compatible with chronic small vessel ischemia. ABX ALLERGIES: PCN INVASIVES: PIV CURRENT ABX: TOTAL ABX DAY OFF ABX DAY #1 S/P TOTAL ABX DAYS # 8 =>Levaquin #5 ID RECOMMENDATIONS/PLAN: 1. She does not appear septic, no clinical indicators for sepsis - CXR shows resolution of prior LLL PNA with subtle RUL infiltrate * Repeat CXR w/subtle right upper lobe lung infiltrates== she is asymptomatic, clinical improvement precedes radiology imaging * Monitor OFF ABX 2. ASP Precautions. . Consultation Date/Type/Reason Admit Date/Time Sep 28, 2018 at 10:43 Initial Consult Date 09/30/18 Requesting Provider: NUZHAT ROSENTHAL Date/Time of Note DATE: 10/06/18 TIME: 20:24 Exam/Review of Systems Exam Vitals Vital Signs Date Temp Pulse Resp B/P (MAP) Pulse Ox O2 O2 Flow FiO2 Time Delivery Rate 10/06/18 97.8 62 18 133/63 95 Room Air 14:00 (86) 10/02/18 2.0 08:02 Intake and Output 10/05/18 10/05/18 10/06/18 1414:59 22:59 06:59 IntakeIntake Total 420 ml 480 ml 600 ml BalanceBalance 420 ml 480 ml 600 ml Results Result Diagram: 10/04/1844010/04/18440 Medications Medication Current Medications IV Flush (NS 3 ml) 3 ml PER PROTOCOL IV ; Start 09/28/18 at 11:30 Ondansetron HCl (Zofran Inj) 4 mg Q6H PRN IV NAUSEA/VOMITING; Start 09/28/18 at 11:30 Acetaminophen (Tylenol Tab) 650 mg Q6H PRN PO .PAIN 1-3 OR TEMP Last administered on 10/06/18 18:39; Admin Dose 650 MG; Start 09/28/18 at 11:30 Enoxaparin Sodium (Lovenox) 30 mg DAILY SC Last administered on 10/06/18 09:47; Admin Dose 30 MG; Start 09/29/18 at 09:00 Petrolatum (Vaseline) 1 applic BID TOP Last administered on 10/06/18 09:45; Admin Dose 1 APPLIC; Start 09/28/18 at 15:00 Escitalopram Oxalate (Lexapro) 20 mg DAILY PO Last administered on 10/06/18 09:45; Admin Dose 20 MG; Start 09/30/18 at 09:00 Lorazepam (Ativan) 0.5 mg Q6H PRN IV ANXIETY Last administered on 10/05/18 19:30; Admin Dose 0.5 MG; Start 09/29/18 at 12:30 Famotidine (Pepcid) 20 mg BID PO Last administered on 10/06/18 09:46; Admin Dose 20 MG; Start 09/29/18 at 21:00 Aspirin (Halfprin) 81 mg DAILY PO Last administered on 10/06/18 09:46; Admin Dose 81 MG; Start 09/30/18 at 09:00 Atenolol (Tenormin) 25 mg DAILY PO Last administered on 10/06/18 09:46; Admin Dose 25 MG; Start 09/30/18 at 09:00 Atorvastatin Calcium (Lipitor) 40 mg QHS PO Last administered on 10/05/18 20:29; Admin Dose 40 MG; Start 09/29/18 at 21:00 Pantoprazole (Protonix Tab) 40 mg DAILY@06 PO Last administered on 10/06/18 05:57; Admin Dose 40 MG; Start 09/30/18 at 09:00 Benazepril HCl (Lotensin) 10 mg DAILY PO Last administered on 10/06/18 09:46; Admin Dose 10 MG; Start 09/30/18 at 09:00 Lorazepam (Ativan) 0.5 mg Q6H PRN PO ANXIETY Last administered on 10/05/18 22:20; Admin Dose 0.5 MG; Start 09/29/18 at 20:00 Clonazepam (Klonopin) 1 mg BID PO Last administered on 10/06/18 09:45; Admin Dose 1 MG; Start 09/29/18 at 21:00 Magnesium Oxide (Mag-Ox 400) 400 mg BID PO Last administered on 10/06/18 09:46; Admin Dose 400 MG; Start 09/30/18 at 21:00 Morphine Sulfate (morphine) 3 mg Q4H PRN IV .PAIN 7-10 Last administered on 10/05/18 02:32; Admin Dose 3 MG; Start 10/04/18 at 10:30 Nicotine (Nicoderm 21 Mg/ 24hr) 1 patch DAILY TRANSDERM Last administered on 10/06/18 09:45; Admin Dose 1 PATCH; Start 10/05/18 at 17:30 ARUN CORDOBA NP Oct 06, 2018 20:28
[2018-10-06 20:58] VITALS: BP 125/68; PULSE 54; RESP 20
[2018-10-06] MEDS: ATORVASTATIN 40 MG TAB PO SCH (21:34)
[2018-10-07] MEDS: ACETAMINOPHEN 325 MG TAB PO PRN ×3 (01:07→15:26)
[2018-10-07 01:42] VITALS: BP 113/57; PULSE 60; RESP 18
[2018-10-07] MEDS: PANTOPRAZOLE (EC) 40 MG TAB PO SCH (05:49)
[2018-10-07 08:19] VITALS: BP 133/55; PULSE 55; RESP 16
[2018-10-07] MEDS: ATENOLOL 25 MG TAB PO SCH (09:00)
[2018-10-07] MEDS: PETROLATUM 5 GM OINT TOP SCH ×2 (09:09→20:24)
[2018-10-07] MEDS: BALSAM PERU/CASTOR OIL 60 GM TUBE TOP SCH (09:09)
[2018-10-07] MEDS: LORAZEPAM 0.5 MG TAB PO PRN (09:10)
[2018-10-07] MEDS: BENAZEPRIL 10 MG TAB PO SCH (09:10)
[2018-10-07] MEDS: ESCITALOPRAM 10 MG TAB PO SCH (09:10)
[2018-10-07] MEDS: clonAZEPAM 0.5 MG TAB PO SCH ×2 (09:10→20:24)
[2018-10-07] MEDS: FAMOTIDINE 20 MG TAB PO SCH ×2 (09:11→20:24)
[2018-10-07] MEDS: MAGNESIUM OXIDE 400 MG TAB PO SCH ×2 (09:12→20:24)
[2018-10-07] MEDS: ASPIRIN (EC) 81 MG TAB PO SCH (09:12)
[2018-10-07] MEDS: ENOXAPARIN 30 MG/0.3 ML SYG SC SCH (09:15)
[2018-10-07] MEDS: NICOTINE (21 MG/24 HR) PATCH TRANSDERM SCH (09:16)
[2018-10-07] MEDS: morphine 4 MG/ML VIAL IV PRN (11:21)
[2018-10-07 14:00] VITALS: BP 131/63; PULSE 59; RESP 15
--- NOTE | 2018-10-07 16:45 | CONS ---
Assessment/Plan Assessment/Plan Hospital Course (Demo Recall) No acute events overnight patient is awake looks comfortable Physical examination: Well-developed elderly woman who is awake in no distress. Head atraumatic normocephalic neck is supple chest rise symmetrical breath sounds diminished bases. Heart: S1-S2. Abdomen soft bowel sounds present. Extremities without cyanosis. Assessment: 1. Status post community-acquired pneumonia and UTI 2. Dementia 3. Non-ST elevation RI 4. Hypertension 5. History of multiple falls Plan: Remains stable off antibiotics Consultation Date/Type/Reason Admit Date/Time Sep 28, 2018 at 10:43 Initial Consult Date 09/30/18 Type of Consult id Requesting Provider: NUZHAT ROSENTHAL Date/Time of Note DATE: 10/07/18 TIME: 16:44 Exam/Review of Systems Exam Vitals Vital Signs Date Temp Pulse Resp B/P (MAP) Pulse Ox O2 O2 Flow FiO2 Time Delivery Rate 10/07/18 98.2 59 15 131/63 96 Room Air 14:00 (85) Intake and Output 10/06/18 10/06/18 10/07/18 1515:00 23:00 07:00 IntakeIntake Total 740 ml 200 ml 350 ml BalanceBalance 740 ml 200 ml 350 ml Results Result Diagram: 10/04/1844010/04/18 044 Medications Medication Current Medications IV Flush (NS 3 ml) 3 ml PER PROTOCOL IV ; Start 09/28/18 at 11:30 Ondansetron HCl (Zofran Inj) 4 mg Q6H PRN IV NAUSEA/VOMITING; Start 09/28/18 at 11:30 Acetaminophen (Tylenol Tab) 650 mg Q6H PRN PO .PAIN 1-3 OR TEMP Last administered on 10/07/18at 15:26; Admin Dose 650 MG; Start 09/28/18 at 11:30 Enoxaparin Sodium (Lovenox) 30 mg DAILY SC Last administered on 10/07/18at 09:15; Admin Dose 30 MG; Start 09/29/18 at 09:00 Petrolatum (Vaseline) 1 applic BID TOP Last administered on 10/07/18 09:09; Admin Dose 1 APPLIC; Start 09/28/18 at 15:00 Escitalopram Oxalate (Lexapro) 20 mg DAILY PO Last administered on 10/07/18at 09:10; Admin Dose 20 MG; Start 09/30/18 at 09:00 Lorazepam (Ativan) 0.5 mg Q6H PRN IV ANXIETY Last administered on 10/05/18 19:30; Admin Dose 0.5 MG; Start 09/29/18 at 12:30 Famotidine (Pepcid) 20 mg BID PO Last administered on 10/07/18 09:11; Admin Dose 20 MG; Start 09/29/18 at 21:00 Aspirin (Halfprin) 81 mg DAILY PO Last administered on 10/07/18 09:12; Admin Dose 81 MG; Start 09/30/18 at 09:00 Atenolol (Tenormin) 25 mg DAILY PO Last administered on 10/06/18 09:46; Admin Dose 25 MG; Start 09/30/18 at 09:00 Atorvastatin Calcium (Lipitor) 40 mg QHS PO Last administered on 10/06/18 21:34; Admin Dose 40 MG; Start 09/29/18 at 21:00 Pantoprazole (Protonix Tab) 40 mg DAILY@06 PO Last administered on 10/07/18 05:49; Admin Dose 40 MG; Start 09/30/18 at 09:00 Benazepril HCl (Lotensin) 10 mg DAILY PO Last administered on 10/07/18 09:10; Admin Dose 10 MG; Start 09/30/18 at 09:00 Lorazepam (Ativan) 0.5 mg Q6H PRN PO ANXIETY Last administered on 10/07/18 09:10; Admin Dose 0.5 MG; Start 09/29/18 at 20:00 Clonazepam (Klonopin) 1 mg BID PO Last administered on 10/07/18 09:10; Admin Dose 1 MG; Start 09/29/18 at 21:00 Magnesium Oxide (Mag-Ox 400) 400 mg BID PO Last administered on 10/07/18 09:12; Admin Dose 400 MG; Start 09/30/18 at 21:00 Morphine Sulfate (morphine) 3 mg Q4H PRN IV .PAIN 7-10 Last administered on 10/07/18 11:21; Admin Dose 3 MG; Start 10/04/18 at 10:30 Nicotine (Nicoderm 21 Mg/ 24hr) 1 patch DAILY TRANSDERM Last administered on 7/9/19at 09:16; Admin Dose 1 PATCH; Start 10/05/18 at 17:30 HILLARY MAR NP Oct 07, 2018 16:45
[2018-10-07 19:14] VITALS: BP 137/53; PULSE 75; RESP 16
[2018-10-07] MEDS: ATORVASTATIN 40 MG TAB PO SCH (20:24)
--- NOTE | 2018-10-07 23:19 | DS ---
Date/Time of Note Date/Time of Note DATE: 10/07/18 TIME: 23:17 Discharge Summary Admission/Discharge Info Admit Date/Time Sep 28, 2018 at 10:43 Discharge Date/Time Patient Condition: Stable Hx of Present Illness Patient is 73-year-old female known to me from previous admission. Patient has extensive medical history including COPD, hypertension, history of coronary artery disease status post PTCI, dyslipidemia, history of right subdural hematoma which patient sustained after a fall in 2014, history of left forearm fracture, gait instability and history of multiple falls, history of bipolar disorder history of chronic pain, fibromyalgia, and anxiety. She has a long history of tobacco use. 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 Patient lives at home with visiting caregiver. Patient was found laying next to her bed by the caregiver and plaster mixer was called. Patient is awake alert however does not remember what happened to her. Chest x-ray revealed a left lower lobe pneumonia. Patient was started on aztreonam since she has a penicillin allergy. Patient underwent cervical spine CT which was negative for any fracture. Patient underwent face CT which revealed soft tissue swelling lateral to the left orbit with nondisplaced fracture left zygomatic arch. Patient was noted to have elevated cardiac enzymes. Patient is admitted for further evaluation and management to telemetry floor. Hospital Course -Community acquired pneumonia, s/p Levaquin, breathing treatment, oxygen supplementation. Dr. Andrade is following in infection disease consultation. -Aspiration pneumonitis -Closed fracture of left zygomatic arch -Dehydration, moderate -UTI per UA -Sepsis secondary to pneumonia and urinary tract infection. -NSTEMI (non-ST elevated myocardial infarction). Continue aspirin, atenolol. Nitroglycerin PRN for pain. Dr. Brizuela is following in cardiology consultation. -Coronary artery disease, hx of percutaneous coronary intervention. -Chronic obstructive pulmonary disease possibly exacerbation. -Hypertension. Continue benazepril. 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 Status post evaluation in psychiatric consultation by DNP Onyek. Continue Lexapro and Abilify. -Chronic pain syndrome with the history of a fibromyalgia. Patient follow-ups with the pain management doctor as an outpatient. -Tobacco dependence, continue nicotine patch -Hx of multiple falls. Plan of care was discussed with Dr. Hannon. Home Meds Active Scripts Levofloxacin* (Levofloxacin*) 250 Mg Tablet, 250 MG PO DAILY@06 for 3 Days, TAB Prov:CHRISTINA DIAZ 10/04/18 Reported Medications Buprenorphine Hcl-Naloxone Hcl (Suboxone SL) 4-1 Mg Film, 1 FILM SL BID, FILM 09/28/18 Escitalopram Oxalate* (Lexapro*) 20 Mg Tablet, 20 MG PO DAILY, #30 TAB 09/28/18 Atorvastatin* (Atorvastatin*) 40 Mg Tablet, 40 MG PO QHS, #30 TAB 09/28/18 Omeprazole* (Omeprazole*) 20 Mg Capsule.dr, 20 MG PO DAILY, #30 CAP 09/28/18 Atenolol* (Atenolol*) 25 Mg Tablet, 25 MG PO DAILY, #30 TAB 09/28/18 Aspirin (Low Dose Aspirin) 81 Mg Tablet.dr, 81 MG PO DAILY, #30 TAB 09/28/18 Discontinued Reported Medications Hydroxyzine Hcl* (Hydroxyzine Hcl*) 50 Mg Tablet, 50 MG PO QHS, #40 TAB 09/28/18 Clonazepam* (Clonazepam*) 2 Mg Tablet, 4 MG PO QHS, TAB 09/28/18 Amlodipine Besylate/Benazepril (Amlodipine-Benazepril 5-10 mg) 1 Each Capsule, 1 EACH PO DAILY, CAP 09/28/18 Primary Care Provider Waldemar Hannon MD Time spent on discharge: > 30 minutes NUZHAT ROSENTHAL Oct 07, 2018 23:19
== END 2018-10-07 21:00 | DRG 871 ==
LOC: E/R 08:05 → 6WM 10:43 → 5EC 10-02 16:58
PROVIDERS: ADMIT Internal Medicine; ATTEND Internal Medicine
DX: A41.9 Sepsis, unspecified organism (principal); J69.0 Pneumonitis due to inhalation of food and vomit; I21.A1 Myocardial infarction type 2; E44.0 Moderate protein-calorie malnutrition; J44.1 Chronic obstructive pulmonary disease with (acute) exacerbation; S02.40FA Zygomatic fracture, left side, initial encounter for closed fracture; N39.0 Urinary tract infection, site not specified; F17.200 Nicotine dependence, unspecified, uncomplicated; B37.9 Candidiasis, unspecified; E86.0 Dehydration; F41.9 Anxiety disorder, unspecified; F31.9 Bipolar disorder, unspecified; I10 Essential (primary) hypertension; G89.4 Chronic pain syndrome; I25.10 Atherosclerotic heart disease of native coronary artery without angina pectoris; E78.5 Hyperlipidemia, unspecified; B96.20 Unspecified Escherichia coli [E. coli] as the cause of diseases classified elsewhere; W18.30XA Fall on same level, unspecified, initial encounter; Z68.20 Body mass index [BMI] 20.0-20.9, adult; Y93.89 Activity, other specified; Y92.013 Bedroom of single-family (private) house as the place of occurrence of the external cause; Y99.8 Other external cause status; Z91.81 History of falling
CPT/HCPCS: 36415; 70450; 70486; 71045; 72125; 73610; 80048; 80053; 81001; 82550; 82553; 82962; 83036; 83605; 83735; 84134; 84436; 84479; 84484; 85025; 87081; 87086; 93005; 93306; 96360; 97161; J1650; J2060; J2270; J7030; J7120